=== PATIENT | female | born 1955 | race Caucasian/White ===

== ENCOUNTER 2018-10-29 10:51 | Observation (INO) ==
--- NOTE | 2018-10-29 07:46 | PROVIDER DOCUMENTATION ---
HPI-Abdominal Pain/GI Problem - General Chief Complaint: Flank Pain Stated Complaint: LOWER ABDOMINAL / BACK PAIN Time Seen by Provider: 10/29/18 07:36 Source: patient Allergies/Adverse Reactions: Patient Allergies Allergy/AdvReac Type Severity Reaction Status Date / Time codeine AdvReac NAUSEA/VOMI Verified 03/29/16 13:09 TING hydrocodone AdvReac NAUSEA/VOMI Verified 03/29/16 13:09 TING Home Medications: Home Medication List Medication Instructions Recorded Confirmed Last Taken Type Alprazolam [Xanax] 1 mg PO BID 03/29/16 05/08/18 03/29/16 09:00 History Cyclobenzaprine [Flexeril] 10 mg PO TID #20 tablet 03/29/16 05/08/18 Unknown Rx Hydrochlorothiazide 25 mg PO DAILY 03/29/16 05/08/18 03/29/16 09:00 History Lisinopril 40 mg PO DAILY 03/29/16 05/08/18 03/29/16 09:00 History Meloxicam [Mobic] 7.5 mg PO DAILY PRN PRN #15 tablet 03/29/16 05/08/18 Unknown Rx Tramadol [Ultram] 50 mg PO Q6H PRN PRN 03/29/16 05/08/18 03/29/16 09:00 History Albuterol 2.5MG/Ipratrop 0.5MG 3 ml INH Q4-6H PRN PRN #120 neb 05/09/18 Unknown Rx [Duoneb (A & A)] Azithromycin [Zithromax Z-Steven] 250 mg PO DIRECTED #1 pkg 05/09/18 Unknown Rx Methylprednisolone [Medrol Dosepak] 4 mg PO DIRECTED #1 pkg 05/09/18 Unknown Rx Nitrofurantoin Monohyd/M-Cryst 100 mg PO BID #14 cap 10/05/18 Unknown Rx [Macrobid 100 mg Capsule] Phenazopyridine HCl [Pyridium] 100 mg PO TID #6 tab 10/05/18 Unknown Rx Levofloxacin [Levaquin] 500 mg PO DAILY #14 tab 10/22/18 Unknown Rx Phenazopyridine HCl [Pyridium] 200 mg PO TID #20 tab 10/22/18 Unknown Rx Tramadol [Ultram] 50 mg PO Q6H PRN PRN #15 tab 10/22/18 Unknown Rx - History of Present Illness-ABD Abdominal Pain Onset Location: reports: RUQ, flank (PAIN IN BOTH FLANKS R > L, PAIN IN BOTH LOWER QUADARANTS, R > L. GETS BM ONLY WHEN TAKES LINZESS PER DR PARKS. DID NOT TRY ENEMAS INSTRUCTED LAST WEEK. DID NOT F/U WITH DR SUAREZ INSTRUCTED LAST WEEK.) Quality of Pain: reports: cramping, pressure Onset/Duration: reports: last week Timing: reports: still present Exposure to sick contacts?: No Modifying Factors: improves with: nothing Associated Symptoms: reports: constipation, nausea. denies: shortness of breath , vomiting Last BM: 24 hours ago Dark Stools Present?: reports: none noticed Similar Symptoms Previously?: Yes Recently seen or treated by another doctor?: Yes (HERE 1 WK AGO) Review of Systems - Adult - REVIEW OF SYSTEMS - ADULT Constitutional: reports: no symptoms reported, chills Eyes: reports: no symptoms reported Ears, Nose, Mouth & Throat: reports: no symptoms reported Cardiovascular: reports: no symptoms reported Respiratory: reports: no symptoms reported Gastrointestinal: reports: no symptoms reported Genitourinary: reports: no symptoms reported Musculoskeletal: reports: no symptoms reported Integumentary: reports: no symptoms reported Neurological: reports: no symptoms reported Psychiatric: reports: no symptoms reported Endocrine: reports: no symptoms reported Hematologic/Lymphatic: reports: no symptoms reported Allergic/Immunologic: reports: no symptoms reported All Other Systems: Reviewed and Negative Past History - Adult - PAST MEDICAL HISTORY-ADULT Review of Records: reports: Old Records Reviewed, Nursing Assessment Review, Medications Reviewed, Social history reviewed & non-contributory. Major Childhood Illnesses: reports: denies history Cardiovascular: reports: HTN Respiratory: reports: COPD Gastrointestinal: reports: denies history Obstetrical/Gynecological: reports: denies history Genitourinary: reports: denies history Musculoskeletal: reports: denies history Neurological: reports: denies history Psychiatric: reports: anxiety Endocrine/Immune: reports: denies history Other Conditions: reports: denies history - PRIOR SURGERIES/PROCEDURES Surgical/Procedure History: reports: orthopedic (extremity) - IMMUNIZATION STATUS Childhood Immunizations: See Nurse Assessment Flu Vaccine: See Nurse Assessment - FAMILY HISTORY Family History: reviewed, not pertinent Physical Exam-General - PHYSICAL EXAM-ADULT Initial Vital Signs Reviewed: Yes - CONSTITUTIONAL General Appearance: alert, mild distress - EYES Eyes: PERRL/EOMI, pink conjunctivae - HEAD, EARS, NOSE, MOUTH & THROAT HENMT: normocephalic/atraumatic, moist mucous membranes - NECK Neck: full range of motion - RESPIRATORY Respiratory: chest non-tender, lungs clear, normal breath sounds, no respiratory distress - CARDIOVASCULAR Cardiovascular: regular rate, rhythm, no gallop, no JVD, tachycardia - GASTROINTESTINAL (ABDOMEN) Abdominal Exam: normal bowel sounds, soft, tenderness ( RLQ- MILD) - MUSCULOSKELETAL Back Exam: no CVA tenderness Extremity: non-tender, normal gait - SKIN Integumentary: normal color, normal turgor, warm/dry - NEUROLOGIC Neurologic: assistant surveyor II-XII nml as tested, grossly normal, no motor/sensory deficits , abnormal cerebellar tests - PSYCHIATRIC Psych/Mental Status: normal mood/affect, normal thought content, normal thought process, oriented x 3 Progress - PLAN OF CARE/RESULTS Progress/Plan/Lab Results: Vital Signs - 8 hr 10/29/18 06:52 Temperature 97.7 F Pulse Rate 114 H Respiratory Rate 20 Blood Pressure 158/85 O2 Sat by Pulse Oximetry 94 L Orders Category Date Time Status Saline Loc NOW Care 10/29/18 07:[address] ABD/PELVIS W/PO AND IV CON [CT] Stat Exams 10/29/18 07:38 Ordered CBC WITH ELECTRONIC DIFF [HEME] Stat Lab 10/29/18 07:37 Uncollected COMPREHENSIVE METABOLIC PANEL [CHEM] Stat Lab 10/29/18 07:37 Uncollected LACTATE, PLASMA [CHEM] Stat Lab 10/29/18 07:37 Uncollected LIPASE [CHEM] Stat Lab 10/29/18 07:37 Uncollected MAGNESIUM [CHEM] Stat Lab 10/29/18 07:[address] W/POSS RFLX CULT [URINALYSIS] Stat Lab 10/29/18 07:37 Uncollected Acetaminophen [Tylenol] Med 10/29/18 07:39 Once 650 mg PO NOW ONE Ondansetron [Zofran] Med 10/29/18 07:39 Once 4 mg IV NOW ONE Promethazine [Phenergan] Med 10/29/18 07:39 Once 25 mg IM NOW ONE Result Diagrams: 10/29/18 08:09 10/29/18 08:09 - CONSULTS/PCP/HOSPITALIST Notification #1 *Consult/PCP/Hospitalist*: DR PARKS Time Discussed: 09:55 Consult Disposition: Admit (WILL CALL FOR ADMISSION AT [facility] FOR ACCESS GASTROENTEROLOGY) Departure - Departure Date of Disposition Decision: 10/29/18 Time of Disposition Decision: 10:06 DIAGNOSIS: Abdominal pain, UTI (urinary tract infection), Hyponatremia, Hypomagnesemia Disposition: ADMITTED INPATIENT 09 Certified Medical Emergency: Emergent Condition: Stable Referrals and Follow-Ups: Antolin Parks MD [Primary Care Provider] - - Critical Care Note This patient required my direct & personal management of CC.: No Attestation - Physician/ INEZ Attestation Patient care was provided by Advanced Practice Provider:: No The physician spent face to face time with patient:: Yes Advanced Practice Provider documentation review:: Supervising physician onsite and consulted in the evaluation and care of this patient. The physician did have a face to face encounter with the patient.
[2018-10-29 08:26] LABS: BASO# 0.03 X1000 (0.0-0.2); BASO% 0.3 % (0.0-0.8); EOS# 0.18 X1000 (0.0-0.7); EOS% 1.6 % (0.0-10.0); HEMATOCRIT 49.8 % (37.0-47.0); HEMOGLOBIN 17.8 g/dL (12.0-16.0); IMM GRAN# 0.04 X1000 (0.0-0.04); IMM GRAN% 0.3 % (0.0-0.5); LYMPH% 12.2 % (20.5-51.1); MCH 33.6 PG (27-31); MCHC 35.7 g/dL (33-37); MCV 94.1 FL (81-99); MONO# 1.08 X1000 (0.11-0.59); MONO% 9.4 % (1.7-9.3); MPV 11.4 FL (7.4-10.4); NEUT# 8.71 X1000 (1.4-6.5); NEUT% 76.2 % (42.2-75.2); PLT 178 X1000 (130-400); RBC 5.29 XMIL (4.2-5.4); RDW 13.9 % (11.5-14.5); WBC 11.44 X1000 (4.8-10.8)
[2018-10-29 08:30] LABS: BILIRUBIN URINE 2+ (NEGATIVE); BLOOD URINE TRACE (NEGATIVE); CLARITY CLEAR (CLEAR); COLOR AMBER; GLUCOSE URINE NEGATIVE (NEGATIVE); KETONE URINE 2+(Moderate) mg/dL (NEGATIVE); LEUKOCYTES URINE 1+ (NEGATIVE); NITRITE URINE POSITIVE (NEGATIVE); PH URINE 6.5; PROTEIN URINE 2+(100 mg/dL) mg/dL (NEGATIVE); SP GRAVITY URINE 1.015; UROBILINOGEN URINE 8 mg/dL
[2018-10-29 08:39] LABS: URINE BACTERIA 2+ /HFP; URINE EPITHELIAL CELLS >10 /HPF (<10); URINE RBC <10 /HPF (<10); URINE SOURCE CLEAN CATCH
[2018-10-29 08:44] LABS: AGAP 15; ALBUMIN 3.9 g/dL (3.5-5.0); ALKALINE PHOSPHATASE 129 U/L (32-104); BUN 9 mg/dL (8-22); CALCIUM 9.9 mg/dL (8.8-10.2); CHLORIDE 90 mmol/L (98-107); COSMO 265; CREATININE 0.6 mg/dL (0.5-0.9); ESTIMATED GFR > 60; GLUCOSE 125 mg/dL (70-104); GOT 14 U/L (10-30); GPT 6 U/L (10-36); LIPASE 19 U/L (13-60); MAGNESIUM 1.4 mg/dL (1.5-2.7); POTASSIUM 3.9 mmol/L (3.5-5.1); SODIUM 132 mmol/L (136-145); TCO2 27 mmol/L (25-35); TOTAL PROTEIN 7.1 g/dL (6.3-8.3)
--- NOTE | 2018-10-29 10:02 | Diag Imaging Result Doc PS360 ---
EXAM: CT ABD/PELVIS W/PO AND IV CON HISTORY: R FLANK AND RLQ PAINS TECHNIQUE: CT abdomen and pelvis with intravenous contrast COMPARISON: None. FINDINGS: There are several small stones within the gallbladder. The gallbladder is contracted. No adjacent inflammation. Tiny hepatic cyst superiorly. Questionable tiny cyst, volume averaging or hemangioma inferiorly. Normal spleen. There are multiple cystic areas in the body of the pancreas. No pancreatic calcifications. No significant peripancreatic inflammation. Normal adrenal glands. There are small renal cysts. No hydronephrosis. No aortic aneurysm. Moderate atherosclerosis. The left renal vein goes behind the aorta. This is a normal variant. There is thickening to the omentum with scattered small peritoneal nodules. No bowel obstruction. There are small fluid filled areas in the pelvis with pelvic inflammation. Uterus is not enlarged. The urinary bladder is moderately distended and is normal. IMPRESSION: 1.Pancreatic mass versus pseudocysts 2.Multiple peritoneal implants with inflammation in the pelvis and small cystic areas which may indicate a female malignancy. 3.Cholelithiasis This exam was performed using automated exposure control, adjustment of mA or kV according to patient size, and/or use of iterative reconstruction technique. Electronically signed by Christopher Felix 10/29/2018 10:00 AM
[~2018-10-29 10:51] MED LIST: MAGNESIUM SULFATE 2 GM/S.W.I. 2 GM/50 ML IVPB IV ONE; NS 1,000 ML IV ONE; NS 100 ML ONE; PHENERGAN IM ONE; TYLENOL PO ONE; ZOFRAN IV ONE; ZOSYN 4.5 GM in NS 100 ML IV ONE
--- NOTE | 2018-10-29 11:32 | HISTORY AND PHYSICAL ---
PRIMARY CARE PHYSICIAN: Dr. Antolin Parks. CHIEF COMPLAINT: Right upper quadrant and flank pain that has progressively worsened over the past month. HISTORY OF PRESENTING ILLNESS: This is a 63-year-old female who presents to [facility] ER with complaints of right upper quadrant and flank pain that is worse on the right. States she has had some issues with constipation and takes Linzess and had a bowel movement yesterday, but she did not follow up with her primary care physician as instructed last week. She began having worsening cramping, pressure in her abdomen. Her workup showed white blood cell count was 11.44, sodium was 132, magnesium was 1.4. Her urinalysis showed positive nitrites, 1+ white blood cells, 2+ bacteria but also had greater than 10 epithelial cells. We did do a CT of the abdomen and pelvis that showed an impression of a pancreatic mass versus pseudocyst, multiple peritoneal implants with inflammation in the pelvis and small cystic areas which may indicate a female malignancy and a cholelithiasis. So, she will be admitted to the [facility] for further evaluation and treatment. PAST MEDICAL HISTORY: Chronic obstructive pulmonary disease , hypertension, anxiety, and lumbar degenerative disk disease. PAST SURGICAL HISTORY: A neck fusion and right hand surgery. FAMILY HISTORY: Reviewed and noncontributory. SOCIAL HISTORY: Currently lives with family. Smokes a pack of cigarettes a day and denied any alcohol or illicit drug use. ALLERGIES: Codeine and hydrocodone. HOME MEDICATIONS: A current list will need to be obtained, reviewed, and reconciled. Placed order for nursing to update and confirm home medications. LABORATORY DATA: A white blood cell count of 11.44, hemoglobin of 17.8, hematocrit 49.8, platelets 178,000. Sodium 132, potassium 3.9, chloride 90, CO2 27, BUN of 9, creatinine 0.6, glucose 125, magnesium of 1.4. Plasma lactate of 1. Lipase 19. Urinalysis with positive nitrites, 1+ white blood cells, 2+ bacteria, but it also had greater than [address] of the abdomen and pelvis showed a pancreatic mass versus pseudocyst cyst, multiple peritoneal implants with inflammation in the pelvis and small cystic areas which may indicate a female malignancy and cholelithiasis. REVIEW OF SYSTEMS: She denied any fever, chills, blurred vision, dizziness, chest pain, coughing, shortness of breath. She was positive for right and left upper quadrant abdominal pain, right and left flank pain with right greater than left, constipation, some mild nausea. Denied any burning or hurting with urination. PHYSICAL EXAMINATION: VITAL SIGNS: On arrival showed a temperature of 97.7 degrees, pulse 114, respirations 20, blood pressure 158/85, saturating 94% on room air. GENERAL: This is a 63-year-old female who is lying in the bed and answers questions appropriately. HEENT: Normocephalic, atraumatic. Normal ENT inspection. Oropharynx and nares are clear. Eyes: Pupils are equal, round, reactive to light and accommodation. Extraocular movements are intact. NECK: Normal inspection with normal range of motion. LUNGS: Clear to auscultation bilaterally with equal lung expansion and chest wall movement. HEART: Regular rate and rhythm. No murmurs, rubs, or gallops. ABDOMEN: There is some tenderness to the right and left upper quadrants to palpation. Bowel sounds are present x4 quadrants. MUSCULOSKELETAL: She has 5/5 strength x4 extremities. NEUROLOGICAL: The cranial nerves 2 through 12 appear grossly intact. ASSESSMENT: 1. Cholelithiasis. 2. Urinary tract infection. 3. Pancreatic mass versus pseudocyst. 4. Hypomagnesemia. 5. Possible female malignancy. PLAN: She will be transferred to [facility], placed on telemetry, clear liquid diet and we will consult General Surgery. We will do an ultrasound, transvaginal. Place her on Rocephin 1 gram IV q.24 h. Zofran 4 mg IV q.4 hours p.r.n., normal saline at 75 mL an hour, Tylenol 650 p.o. q.6 hours p.r.n. We will recheck a CBC, BMP in the a.m. along with a magnesium level. Nursing to update and confirm home medications and then will be restarted as appropriate. Further orders after being seen by attending and the protection consultant. Dictated by VISHAL Vazquez for Bradford Hickey MD cc: VISHAL Vazquez MD Gregory S. Cheatham, MD Pt examined please see attched note. APENOT MTDD
[2018-10-29] MEDS ORDERED: TYLENOL PO PRN (13:55)
--- NOTE | 2018-10-29 14:58 | HISTORY AND PHYSICAL ---
ADDENDUM: The patient came in with abdominal pain, nausea, vomiting. Workup revealed possible gallstones. She has COPD. She has been not feeling well for last month. She had some fertilization issues. She has seen Dr. Arteaga in the past. Apparently had a salpingostomy and she had dye put in through her fallopian tubes. She had a viable but after that, then she had an ectopic and then she also had an abnormal uterus. The patient is otherwise stable. Workup though revealed a pancreatic possible mass versus pseudocyst. She also has gallstones. She also has possible UTI. The patient is going to be admitted for multiple issues. She denies any abnormalities on her SENIOR BENEFITS SPECIALIST exam. She has seen Dr. Arteaga and now she sees another physician, Dr. Hickey. She has never had abnormal Pap smears before, although she did have abnormalities as detected. Her physical exam is stable. No major issues there. Plan is to transfer to [facility] for evaluation by General Surgery because of the current scan shows concern over possible pancreatic cancer versus an unknown primary. She has peritoneal studding which is concerning over possible implants but unknown primary. I think we need to scan her lungs because she is a heavy smoker, 40 pack year history of smoking, to rule out chest mass and then do further studies on her gallbladder to see if she is symptomatic. She definitely has right upper quadrant abdominal pain, nausea. She also has I think evidence of UTI and that was her main complaint was dysuria and bladder fullness, those kinds of issues. She denies any SENIOR BENEFITS SPECIALIST issues. No vaginal discharge. No bleeding. But, we will proceed with pelvic ultrasound and follow. Rest of the details per dictated H/P. DISCHARGE CONDITION: Stable. Transfer her to [facility] for further management. We will consult PRINCIPAL LIBRARIAN and General Surgery. cc: Bradford Hickey MD [facility]
--- NOTE | 2018-10-29 15:30 | Diag Imaging Result Doc PS360 ---
EXAM: US PELVIC NON-OB COMPLETE HISTORY: eval for education supervisor malignancy TECHNIQUE: Transvaginal Pelvic ultrasound COMPARISON: None. FINDINGS: The uterus measures 5.4 x 4.2 x 3.5 cm. The endometrium is not thickened. The two dela cruz combined measure 3 mm. No uterine mass. Normal right ovary. The left ovary is not identified. There is a small amount of complex fluid in the pelvis. Bowel loops with peristalsis are present. IMPRESSION: No distinct adnexal mass although there is a small amount of complex fluid in the pelvis. Electronically signed by Christopher Felix 10/29/2018 3:27 PM
--- NOTE | 2018-10-29 15:31 | Diag Imaging Result Doc PS360 ---
EXAM: US ABDOMEN-COMPLETE INDICATION: abdominal pain COMPARISON: None. FINDINGS: There are a few small stones in the gallbladder lumen. There is no evidence of gallbladder wall thickening or pericholecystic fluid. The common bile duct is normal in diameter. Sonographic Castellanos's sign was reported to be negative. The liver is grossly unremarkable. Portal venous flow is hepatopetal. The pancreas is obscured by bowel gas. The mid and distal aorta is obscured. The proximal aorta and IVC are unremarkable. The spleen is unremarkable. The kidneys are grossly unremarkable. IMPRESSION: Cholelithiasis. Essentially unremarkable abdominal ultrasound, otherwise. Electronically signed by Duke Perez 10/29/2018 3:29 PM
[2018-10-29] MEDS: ROCEPHIN 1 GM in NS 50 ML IV SCH (16:45)
[2018-10-29] MEDS: NS 1,000 ML IV SCH (16:45)
[2018-10-29] MEDS: MORPHINE IV PRN ×2 (16:45→21:05)
[2018-10-29] MEDS: ZOFRAN IV PRN ×2 (16:46→21:05)
[2018-10-30] MEDS: MORPHINE IV PRN ×5 (02:33→20:00)
[2018-10-30] MEDS: ZOFRAN IV PRN ×5 (02:33→20:00)
--- NOTE | 2018-10-30 03:39 | GENERAL SURGERY CONSULTATION ---
DATE: 10/29/2018 REQUESTING PHYSICIAN: Hospitalist service. REASON FOR CONSULTATION: Consult is concerning possible pancreatic mass and cholelithiasis. HISTORY OF PRESENT ILLNESS: A 63-year-old female who presented to the [facility] initially with complaints that she told to the hospitalist service with right upper quadrant and flank pain. She now reports more pain in the bilateral lower quadrants to me. She was seen initially, evaluated, and had a CT scan that showed a potential for pancreatic mass, peritoneal implants, and cholelithiasis. Given this, she was transferred over to [facility] for further evaluation. At this point, she denies any kind of right upper quadrant pain, but says bilateral lower quadrant pain. I was asked to weigh an opinion. PAST MEDICAL HISTORY: COPD, hypertension, anxiety, lumbar degenerative disk disease. PAST SURGICAL HISTORY: Neck fusion and right hand surgery. FAMILY HISTORY: Reviewed. SOCIAL HISTORY: Current smoker. ALLERGIES: Codeine and hydrocodone. HOME MEDICATIONS: In MAR, reviewed. REVIEW OF SYSTEMS: A full 10-point review of systems obtained, negative, except as specified in HPI. PHYSICAL EXAMINATION: Vital Signs: The patient is currently afebrile. Her vital signs are stable. General: No acute distress. Alert, interactive, female. Looks stated age. HEENT: Normocephalic, atraumatic. Pupils equal, round, reactive to light. Mucous membranes moist. Oropharynx benign. Neck: Supple. Trachea midline. Cardiovascular: Regular rate and rhythm. Lungs: Grossly clear. Abdomen: Soft, nontender, nondistended. Some minimal lower quadrant discomfort. Extremities: Moves all extremities. Neurologic: Grossly intact. Skin: No signs of jaundice. Vascular: All extremities perfused. LABORATORY: White blood cell count 11, hematocrit 49, platelet count 178,000. Bilirubin is normal. AST is normal. Alkaline phosphatase 129. CEA is slightly elevated at 72.5. CT scan independently reviewed, and radiology report reviewed, and noted above. ASSESSMENT AND PLAN: A 63-year-old with possible pancreatic mass and cholelithiasis. 1. Pancreatic mass. In the context of the patient not hurting, I would like to follow up with her labs. They have been sent off with the CA-19-9, CA-125, and the CEA. There is a high chance this could be a malignancy. She may even need endoscopic ultrasound if labs are not conclusive. May need to consider diagnostic laparoscopy with implant biopsy. At this point, she is not complaining of a lot of symptoms in her right upper quadrant, so I would hold off on any kind of cholecystectomy, pending the evaluation from the pancreatic mass. 2. Cholelithiasis. Please see above. I appreciate the consult. cc: Cory Cavanaugh MD
[2018-10-30] MEDS: NS 1,000 ML IV SCH ×3 (06:41→20:13)
[2018-10-30 08:15] LABS: BASO# 0.03 X1000 (0.0-0.2); BASO% 0.4 % (0.0-0.8); EOS# 0.25 X1000 (0.0-0.7); HEMATOCRIT 46.9 % (37.0-47.0); HEMOGLOBIN 16.1 g/dL (12.0-16.0); IMM GRAN# 0.03 X1000 (0.0-0.04); IMM GRAN% 0.4 % (0.0-0.5); LYMPH# 1.43 X1000 (1.2-3.4); LYMPH% 17.4 % (20.5-51.1); MCH 33.5 PG (27-31); MCHC 34.3 g/dL (33-37); MCV 97.5 FL (81-99); MONO# 0.86 X1000 (0.11-0.59); MONO% 10.5 % (1.7-9.3); MPV 11.7 FL (7.4-10.4); NEUT# 5.62 X1000 (1.4-6.5); NEUT% 68.3 % (42.2-75.2); PLT 164 X1000 (130-400); RBC 4.81 XMIL (4.2-5.4); RDW 13.9 % (11.5-14.5); WBC 8.22 X1000 (4.8-10.8)
[2018-10-30 08:30] LABS: AGAP 13; ALB/GLOB RATIO 1.1; ALBUMIN 3.1 g/dL (3.5-5.0); ALKALINE PHOSPHATASE 96 U/L (32-104); BUN 6 mg/dL (8-22); CALCIUM 8.7 mg/dL (8.8-10.2); CHLORIDE 102 mmol/L (98-107); COSMO 273; CREATININE 0.5 mg/dL (0.5-0.9); ESTIMATED GFR > 60; GLUCOSE 90 mg/dL (70-104); GOT 11 U/L (10-30); GPT 6 U/L (10-36); POTASSIUM 3.9 mmol/L (3.5-5.1); SODIUM 138 mmol/L (136-145); TCO2 23 mmol/L (25-35); TOTAL BILIRUBIN 0.46 mg/dL (0.20-1.00); TOTAL PROTEIN 5.9 g/dL (6.3-8.3)
--- NOTE | 2018-10-30 09:17 | Diag Imaging Result Doc PS360 ---
EXAM: CT THORAX W/CONTRAST INDICATION: copd, weight loss, possible staging TECHNIQUE: This exam was performed using automated exposure control, adjustment of mA or kV according to patient size, and/or use of iterative reconstruction technique. COMPARISON: No prior dedicated chest CT is available for comparison. FINDINGS: There are calcified mediastinal and right hilar lymph nodes indicating prior granulomatous disease. There are a few tiny noncalcified nodules scattered in the right lung. Almost all are 4 mm or less. The largest nodule measured about 5 mm in the right lower lobe. These certainly may represent noncalcified granulomata. Given the findings of malignancy in the abdomen on a recent abdomen and pelvis CT, continued surveillance is recommended, however. There is minimal emphysematous change at the lung apices. There is mild subsegmental atelectasis at the lung bases. There is no pleural fluid collection and no pneumothorax. The heart is not enlarged. There is no evidence of local bony metastatic disease to the chest. Limited views of the upper abdomen reveals trace ascites tracking around the liver and spleen. However, there is more fluid than yesterday's abdomen and pelvis CT. Otherwise, limited views of the upper abdomen are stable. IMPRESSION: 1.A few tiny subcentimeter nodules involving the right lung that probably represent noncalcified granulomata. However, given the recent findings in the abdomen and pelvis, continued surveillance is recommended. 2.Minimal emphysematous changes at the lung apices. 3.Trace ascites tracking around the liver and spleen that has increased slightly during the interval. Electronically signed by Duke Perez 10/30/2018 9:15 AM
--- NOTE | 2018-10-30 10:53 | GENERAL SURGERY PROGRESS NOTE ---
DATE: 10/30/2018 SUBJECTIVE: Patient doing about the same. Still having some bilateral lower quadrant pain. OBJECTIVE: Vital Signs: Patient is currently afebrile, her vital signs stable. General exam: No acute distress. Cardiovascular: Regular rate and rhythm. HEENT: Normocephalic, atraumatic. Pupils equal, round, reactive to light. Mucous membranes moist. Oropharynx benign. Neck: Supple. Trachea midline. Lungs: Grossly clear. Abdomen: Soft. Some mild discomfort bilateral lower quadrants. No peritoneal signs. Extremities: Moves all extremities. Neurologic: Grossly intact. Skin: No signs of jaundice. Vascular: All extremities perfused. LABORATORY: Of note, the only other lab that came back is a CA-125 of 434. ASSESSMENT/PLAN: A 63-year-old female with possible pancreatic mass, cholelithiasis and peritoneal implants. 1. Pancreatic mass: At this time labs for the CA-19/9 are still pending. The CA-125 is elevated and there is some concern that she might have a gynecologic malignancy with peritoneal implants. I would like to see the results of the CA-19/9, but the patient may need diagnostic laparoscopy with peritoneal implant biopsy versus consideration of gynecologic/oncology consultation for evaluation. 2. Cholelithiasis. At this time, we will hold off on any intervention. I am unsure if she is symptomatic from it. 3. Peritoneal implants. Please see above. cc: Cory Cavanaugh MD
[2018-10-30] MEDS: ROCEPHIN 1 GM in NS 50 ML IV SCH (14:36)
--- NOTE | 2018-10-30 17:01 | PROGRESS NOTE ---
DATE: 10/30/2018 SUBJECTIVE: She is a patient of Dr. Antolin Parks. She had right upper quadrant flank pain that progressively worsened over the last month. A 63-year-old presented to [facility] complaining of right upper quadrant flank pain, worse on the right. She had some issues with constipation, takes Linzess, and had a bowel movement the day before admission, but she did not follow up with her primary care physician as instructed last week. She began having worsening cramping and pressure in her abdomen. Workup showed white blood cell count 11,440. Sodium 132, magnesium 1.4. Urinalysis showed positive nitrates 1+, white blood cells, 2+ bacteria, also greater than [address] of the abdomen and pelvis that showed impression of pancreatic masses versus pseudocyst, multiple peritoneal implants and inflammation in the pelvis, small cystic areas which indicate possible female malignancy or cholelithiasis and choledocholithiasis. So, admitted to [facility]. She apparently is undergoing testing now. She feels a little better. She still has the lower right quadrant pain. Dr. Cavanaugh is following. OBJECTIVE: Vital Signs: Temperature is 97.5 degrees, pulse 84, respirations 18, blood pressure 138/80. HEENT: Pupils are equal and round. Lungs: Clear in all lung keyes. Cardiovascular: Regular rhythm and rate without murmur or S3. Abdomen: Soft. There is tenderness in the right lower quadrant, but none in the epigastric area. DIAGNOSTIC DATA: CT of her thorax reveals a few tiny subcentimeter nodules involving the right lung that probably represent noncalcified granulomata. However, recent finding in the abdomen and pelvis continued surveillance is recommended. Minimal emphysematous changes in the lung apices. Trace ascites tract around the liver and spleen and has increased since CT comparison, not sure when that was. She had a CT of the abdomen and pelvis on 10/29/2018. Pancreatic mass versus pseudocyst, multiple peritoneal implants with inflammation in the pelvis, small cystic areas that may indicate female malignancy and cholelithiasis. REVIEW OF HER LABORATORY DATA: Lab from yesterday, white count 8220, hematocrit is 46, platelet count 164,000. Sodium 138, potassium 3.9, chloride 102, BUN 6, creatinine 0.5. Her transaminases were unremarkable. She did have a pelvic ultrasound on 10/29/2018. No distinct adnexal mass, although there is small amount of complex fluid in the pelvis. ASSESSMENT AND PLAN: 1. Pancreatic mass. At this time we ordered a CA-19-9 still pending, and CA-125 is elevated and there is some concern she might have a gynecologic malignancy with peritoneal implants. Result of CA-19-9, the patient may need diagnostic laparoscopy with peritoneal implant biopsy. 2. Cholelithiasis. 3. Peritoneal implants. So continue workup. Review of her orders. She is on ceftriaxone 1 g q.24 h. and they did supplement some magnesium and getting morphine for pain. Normal saline at 75 mL an hour. cc: Guero Parks MD
[2018-10-31] MEDS: MORPHINE IV PRN ×6 (00:25→21:29)
[2018-10-31] MEDS: ZOFRAN IV PRN ×6 (00:25→21:29)
--- NOTE | 2018-10-31 06:43 | GENERAL SURGERY PROGRESS NOTE ---
DATE: 10/31/2018 SUBJECTIVE: Patient doing about the same. OBJECTIVE: Vital Signs: Patient is currently afebrile. Her vital signs are stable. General: No acute distress. HEENT: Normocephalic, atraumatic. Pupils equal, round, reactive to light. Mucous membranes moist. Oropharynx benign. Neck: Supple, trachea midline. Cardiovascular: Regular rate and rhythm. Lungs: Grossly clear. Abdomen: Soft. Some bilateral lower quadrant tenderness but no peritoneal signs. Extremities: Moves all extremities. Neurologic: Grossly intact. Skin: No signs of jaundice. Vascular: All extremities perfused. LABORATORY: CA-19-9 is 156,187. CA-125 is 434, CEA 72.5. ASSESSMENT AND PLAN: A 63-year-old with abdominal mass. 1. Abdominal mass. At this time she has elevated CEA, elevated CA 19-9, and elevated CA-125. At this point, we will get oncology involved, get their opinion. If Oncology wants tissue diagnosis, I can potentially take her to the operating room and do a diagnostic laparoscopy or Monday. It would be purely to get a diagnosis, but again, there is a high degree of suspicion this might be pancreatic in origin or even BALLOON ARTIST in origin given the elevated tumor markers. At this point, continue current treatment. We will follow up with oncology recommendation. cc: Cory Cavanaugh MD
[2018-10-31] MEDS ORDERED: NS 50 ML ONE (09:14)
[2018-10-31] MEDS: NS 1,000 ML IV SCH ×2 (13:06→22:46)
[2018-10-31] MEDS: ROCEPHIN 1 GM in NS 50 ML IV SCH (14:14)
--- NOTE | 2018-10-31 16:44 | PROGRESS NOTE ---
DATE: 10/31/2018 SUBJECTIVE: Ms. Koroma says she is still hurting, still with nausea. OBJECTIVE: Vital Signs: Temperature 97.9, pulse 84, respirations 20, blood pressure 154/61. Eyes: Pupils are equal and round. Lungs: Are clear in all lung keyes. Cardiovascular: Regular rhythm and rate without murmur or S3. Abdomen: Soft. Skin: Warm and dry. ASSESSMENT AND PLAN: 1. Abdominal mass. She has an elevated CEA, elevated CA-19-9, elevated CA-125. Oncology is going to weigh in and they would like a tissue diagnosis so plan to do laparoscopic procedure or Monday or Dr. Cavanaugh is planning on doing a laparoscopic procedure for and Monday. Not sure if this is pancreatic or BINDER LOCKSTITCH origin and the patient understands. Understands the course of treatment or plan of the hospital course at this point. 2. She does have cholelithiasis. 3. Peritoneal implants appreciated. Getting normal saline at 75 mL an hour. She is on ceftriaxone 1 g q.24 hours. cc: Guero Parks MD
--- NOTE | 2018-10-31 17:19 | HEMO/ONC CONSULTATION ---
DATE: 10/31/2018 REQUESTING PHYSICIAN: Cory Cavanaugh MD REASON FOR CONSULTATION: Pancreatic mass. HISTORY OF PRESENT ILLNESS: Ms. Koroma is a 63-year-old female, who initially presented to the emergency department complaining of right upper quadrant pain and flank pain that was worsening. She is also having some issues with constipation. During her workup , which included a CT of the abdomen and pelvis, it shows her to have a pancreatic mass versus pseudocyst with multiple peritoneal implants with inflammation in the pelvis and small cystic areas which may indicate a female malignancy, and she also was found to have cholelithiasis. She has now been admitted for further evaluation and treatment. PAST MEDICAL HISTORY: 1. COPD. 2. Hypertension. 3. Anxiety. 4. Degenerative disk disease. PAST SURGICAL HISTORY: 1. Neck fusion. 2. Right hand surgery. SOCIAL HISTORY: Patient currently lives with some family members. She smokes a pack of cigarettes per day. She denies any alcohol or illicit drug use. She has a daughter and also a mother who are in her life. FAMILY HISTORY: Again, her mother is still alive. Her father is . No mention of cancer within her family. REVIEW OF SYSTEMS: As per the HPI. All else is negative or noncontributory. A 12 point review of systems completed. PHYSICAL EXAMINATION: Vital Signs: Temperature 97.8 degrees, heart rate 85, respirations 20, blood pressure 169/77, O2 saturation 97% on room air. General: This is a female, lying in hospital bed. She appears older than her stated age. There is no one at her bedside. Head: Normocephalic, atraumatic. Eyes: Pupils equal, round, and reactive. Ears , nose, throat, neck, mouth: Mucosa appears to be normal. Gross auditory acuity is intact. Cardiovascular: S1, S2 heard. No murmurs, gallops, or rubs appreciated. Respiratory: Chest clear with normal respiratory effort. Gastrointestinal: Abdomen is slightly distended. She has some diffuse tenderness with her worst tenderness actually in her right lower quadrant. She also has some epigastric tenderness as well. Positive bowel sounds noted. Musculoskeletal: No bony abnormalities. Extremities: No edema. Neurologic: Patient is alert and oriented. DIAGNOSTIC STUDIES: CT scan as per the HPI. White blood cells 8.22, hemoglobin 16.1, hematocrit 46.9, platelet count 164, 000. Sodium 138, potassium 3.9, chloride 102, CO2 of 23, BUN 6, creatinine 0.5, glucose 90. CA19-9 is 156,187. CA-[address] of chest shows tiny subcentimeter noncalcified granulomatous disease. ASSESSMENT AND PLAN: 1. Pancreatic mass with elevated CA19-9. Suspect the patient likely has a pancreatic carcinoma. However, we will need a tissue diagnosis. Per the patient's report, Dr. Cavanaugh is planning to do surgery either tomorrow or Monday. We will follow up on pathology once it comes back. Further treatment discussion once we have a definitive diagnosis. 2. Cholelithiasis. Again she has been evaluated by Dr. Cavanaugh. Management per him. 3. Urinary tract infection. Patient will continue with IV antibiotics per the primary team. 4. Abdominal pain. Seems to be well managed currently with morphine IV as needed. Continue. 5. Nausea and vomiting. Well managed with IV antiemetics. Continue as prescribed. We like to thank you for consulting us on Ms. Koroma. We will continue to follow along and adjust our treatment plan per her hospital course. Dictated by SHREE Baeza for Krissy Carrero MD cc: Krissy Carrero MD I have seen and examined the patient and the above note reflects my history, physical and assessment and plan. Krissy LUJAN
[2018-10-31] MEDS: NICODERM PATCH TD SCH (21:29)
[2018-11-01] MEDS: MORPHINE IV PRN ×4 (01:34→19:53)
[2018-11-01] MEDS: ZOFRAN IV PRN ×3 (01:34→19:53)
[2018-11-01] MEDS: NS 1,000 ML IV SCH ×3 (04:38→15:52)
--- NOTE | 2018-11-01 05:50 | GENERAL SURGERY PROGRESS NOTE ---
DATE: 11/01/2018 SUBJECTIVE: The patient is doing about the same. Discussed her case with Dr. Krissy Carrero. They do want a tissue biopsy. We will try to do that today. OBJECTIVE: Vital Signs: The patient is currently afebrile, her vital signs are stable. General: No acute distress. HEENT: Normocephalic, atraumatic. Pupils equal, round, and reactive to light. Mucous membranes moist. Oropharynx benign. Neck: Supple. Trachea midline. Cardiovascular: Regular rate and rhythm. Lungs: Grossly clear. Abdomen: Soft. Some mild discomfort to bilateral lower quadrants but no peritoneal signs. Extremities: Moves all extremities. Neurologic: Grossly intact. Skin: No signs of jaundice. Vascular: All extremities perfused. LABORATORY: None this morning as of yet. ASSESSMENT AND PLAN: A 63-year-old with abdominal mass, likely pancreatic cancer, with possible peritoneal implants. Abdominal mass. At this time, we will plan on diagnostic laparoscopy to try to get a biopsy. The risks, benefits, and alternatives were discussed with the patient. Risks including, but not limited to bleeding, infection, risk of anesthesia, and risk of injuring other organs discussed. We will try to do that today if not tomorrow. We will make her NPO and try to get her posted for today. cc: Cory Cavanaugh MD
[2018-11-01] MEDS: BENADRYL IV PRN ×3 (06:00→19:53)
[2018-11-01] MEDS: NICODERM PATCH TD SCH (08:43)
[2018-11-01] MEDS ORDERED: ROBINUL ONE ×2 (12:17→13:03)
[2018-11-01] MEDS ORDERED: XYLOCAINE-MPF 2% ONE (12:17)
[2018-11-01] MEDS ORDERED: QUELICIN (DOSE) ONE (12:17)
[2018-11-01] MEDS ORDERED: DIPRIVAN 1% ONE (12:18)
[2018-11-01] MEDS ORDERED: LR 1,000 ML ONE (12:44)
[2018-11-01] MEDS ORDERED: SENSORCAINE-MPF 0.5%/EPI 1:200,000 ONE (12:44)
[2018-11-01] MEDS ORDERED: NEOSTIGMINE ONE (13:03)
[2018-11-01] MEDS ORDERED: ZOFRAN ONE (13:03)
[2018-11-01] MEDS ORDERED: ZEMURON ONE (13:03)
[2018-11-01] MEDS ORDERED: DECADRON ONE (13:03)
[2018-11-01] MEDS ORDERED: FENTANYL ONE (13:04)
[2018-11-01] MEDS: ROCEPHIN 1 GM in NS 50 ML IV SCH (15:52)
--- NOTE | 2018-11-01 15:59 | OPERATIVE NOTE ---
PROCEDURE DATE: 11/01/2018 PREOPERATIVE DIAGNOSIS: Abdominal mass and elevated tumor markers. POSTOPERATIVE DIAGNOSIS: Carcinomatosis with peritoneal implants. PROCEDURES: 1. Diagnostic laparoscopy. 2. Biopsy of peritoneal implants. 3. Laparoscopic drainage of ascites for cytology. SURGEON: Cory Cavanaugh MD. FUNCTIONAL ANALYST: None. ANESTHESIA: General endotracheal. OPERATIVE FINDINGS: Ascites and implants noted throughout the abdomen. COMPLICATIONS: None at the time of this dictation. ESTIMATED BLOOD LOSS: 5 mL. SPECIMEN REMOVED: Fluid for cytology and implants for permanent. 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 Her tumor markers including her CA-19/9 were significantly elevated. It was felt that she needed a biopsy. The risks, benefits, and alternatives were discussed. All questions answered. DESCRIPTION OF PROCEDURE: After informed consent was obtained, patient brought to the operative theater, transferred to the operative table, placed in supine position. General endotracheal anesthesia was then performed without complication. A formal time-out was then performed confirming patient, date, procedure. All were in agreement. At that time, the patient had an infraumbilical incision made through which using Optiview technique, we inserted a 5 mm trocar, connected insufflation and pneumoperitoneum was achieved. We then placed an additional 5 mm trocar lateral to this on the right side. We saw multiple peritoneal implants across the entirety of the abdomen. There were some that were easily accessible above the liver, which we identified as probably the safest ones to get. There was also a significant amount of ascites. We initially placed a suction in, put a Lukens trap on it and took some fluid for cytology. We then also did a biopsy and grasped multiple aspects of these peritoneal implants. It looked like under gross that we had a significant amount of tissue. We then removed all trocars, disconnected insufflation. Pneumoperitoneum was released. We then closed all skin incisions with 4-0 Monocryl. The patient tolerated the procedure well, was transferred back to recovery room in stable condition. cc: Cory Cavanaugh MD
--- NOTE | 2018-11-01 18:56 | PROGRESS NOTE ---
DATE: 11/01/2018 SUBJECTIVE: Ms. Koroma feels about the same, still with nausea. No abdominal pain. The plan is to do a laparoscopic evaluation, get some biopsy. OBJECTIVE: Temperature 97.8 degrees, pulse 90, respirations 18, blood pressure 159/80. Pupils are equal and round. Lungs are clear in all lung keyes. Cardiovascular exam regular rhythm and rate, without murmur or S3. Abdomen is soft. Skin is warm and dry. Urine output 1000 mL. ASSESSMENT AND PLAN: 1. Abdominal mass, elevated CEA, elevated CA19-9, elevated CA-125. Plan is get a tissue diagnosis. 2. Cholelithiasis. 3. Peritoneal implants. cc: Guero Parks MD
[2018-11-02] MEDS: BENADRYL IV PRN ×5 (00:06→20:32)
[2018-11-02] MEDS: MORPHINE IV PRN ×5 (00:06→20:32)
[2018-11-02] MEDS: ZOFRAN IV PRN ×5 (00:07→20:32)
[2018-11-02] MEDS: NS 1,000 ML IV SCH ×2 (03:45→15:02)
--- NOTE | 2018-11-02 06:12 | GENERAL SURGERY PROGRESS NOTE ---
DATE: 11/02/2018 SUBJECTIVE: The patient doing okay after surgery. She has been hemodynamically stable. She has a little bit of abdominal discomfort, but this is expected. During the surgery, saw multiple peritoneal implants, which we took territory sales representative biopsies of. She also had ascites which we took samples up for cytology. ASSESSMENT AND PLAN: From a surgical point of view, she is doing well. This likely represents carcinomatosis and, given the lab findings, most likely for a pancreatic origin. From a surgical point of view, once she is deemed okay to be discharged from the hospital we can probably discharge her. I can see her back in the office and discuss port placement with her as an outpatient. We will follow up with Oncology recommendation. cc: Cory Cavanaugh MD
[2018-11-02] MEDS: NICODERM PATCH TD SCH (10:05)
--- NOTE | 2018-11-02 13:34 | PROGRESS NOTE ---
DATE: 11/02/2018 SUBJECTIVE: Ms. Koroma still feels about the same and she is obviously concerned about the results of her test. OBJECTIVE: Vital signs: Temperature 97.6 degrees, pulse 96, respirations 18, blood pressure 162/81. HEENT: Pupils are equal and round. Lungs: Clear in all lung keyes. Cardiovascular: Regular rate without murmur or S3. Abdomen: Soft. Skin: Warm and dry. Urine output 2800 mL. ASSESSMENT AND PLAN: It appears that she has carcinomatosis, most likely pancreatic origin. I was going to try advancing her diet and see how we do. See if we get any pathology back. She has an elevated CEA, CA-19-9, CA-125, and she has some underlying cholelithiasis as well. Dr. Carrero has evaluated. So we will advance her diet and see how we do. She has a nicotine patch on board. We have been giving her some ceftriaxone 1 g q.24 hours; I think we can stop that. cc: Guero Parks MD
--- NOTE | 2018-11-02 20:07 | HEMO/ONC PROGRESS NOTE ---
DATE: 11/02/2018 Ms. Koroma is now status post surgical biopsy with Dr. Cavanaugh yesterday on 11/01/2018. From our standpoint, if okay with Surgery and the primary team, the patient can be released and discharged home. We can follow up with the patient next week to review her biopsy results and discuss further treatment planning from there. We are available if there are any questions. Dictated by SHREE Baeza for Krissy Carrero MD cc: Krissy Carrero MD
[2018-11-02] MEDS: MIRALAX PO SCH (22:23)
[2018-11-03] MEDS: ZOFRAN IV PRN ×4 (00:32→20:56)
[2018-11-03] MEDS: BENADRYL IV PRN ×4 (00:32→21:56)
[2018-11-03] MEDS: MORPHINE IV PRN ×4 (00:32→20:56)
[2018-11-03] MEDS: MIRALAX PO SCH (08:35)
[2018-11-03] MEDS: NS 1,000 ML IV SCH ×2 (08:35→23:23)
[2018-11-03] MEDS: NICODERM PATCH TD SCH (08:36)
--- NOTE | 2018-11-03 11:49 | PROGRESS NOTE ---
DATE: 11/03/2018 SUBJECTIVE: Ms. Koroma is a little more confused and lethargic right now secondary to pain medicine. She did not get much sleep last night, and so she says she is very tired. OBJECTIVE: Vital Signs: Temp 98.4 degrees, pulse 93, respirations 18, blood pressure 171/87. HEENT: Pupils are equal and round. Lungs: Clear in all lung keyes. Cardiovascular: Regular rhythm and rate without murmur or S3. Abdomen: Soft. Skin: Warm and dry. LABORATORY DATA: Reviewed from the . ASSESSMENT AND PLAN: We plan on hopefully getting tissue results next week, and if she has carcinomatosis, then most likely we suspect it to be pancreatic region. She still has abdominal discomfort and not eating real, but we will advance her to a regular diet and see when she will be ready to go home. cc: Guero Parks MD
[2018-11-03] MEDS ORDERED: NEXIUM PO ONE (16:40)
[2018-11-03] MEDS: MAALOX PLUS LIQUID PO PRN (16:58)
[2018-11-04] MEDS: MORPHINE IV PRN ×4 (02:29→22:55)
[2018-11-04] MEDS: ZOFRAN IV PRN ×4 (02:29→22:55)
[2018-11-04] MEDS: NEXIUM PO SCH (06:53)
[2018-11-04] MEDS: MIRALAX PO SCH (10:10)
[2018-11-04] MEDS: NICODERM PATCH TD SCH (10:10)
[2018-11-04] MEDS: BENADRYL IV PRN ×4 (10:31→23:16)
--- NOTE | 2018-11-04 10:35 | PROGRESS NOTE ---
DATE: 11/04/2018 SUBJECTIVE: Ms. Koroma has been very lethargic. Her speech is a little bit slurred. She is fussing about not getting her pain medicines, but has difficulty keeping her eyes open. OBJECTIVE: Vital signs: Temperature 99 degrees, pulse 92, respirations 22, blood pressure 151/71. HEENT: Pupils are equal. Neck: No distended neck veins. Lungs: Clear anterior and lateral. Cardiovascular: Regular rhythm and rate without murmur or S3. Abdomen: She has some pressure in the lower abdomen. ASSESSMENT AND PLAN: 1. 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 Still waiting on her studies. Suspect this could be pancreatic in origin, but also could be ovarian. She is very lethargic, and I think we are going to have to make some decisions about the level of her pain medicine and also decisions about whether she is going to go home, go home with hospice, or if she needs to go somewhere to help with care. She does have some underlying cholelithiasis, but I do not feel like that is symptomatic. So still a lot of discomfort. 2. Review of her medication: She is on a nicotine patch 21 mg daily, getting normal saline at 75 mL an hour, and MiraLAX 17 g daily. cc: Guero Parks MD
[2018-11-04] MEDS: NS 1,000 ML IV SCH (11:35)
[2018-11-05] MEDS: MAALOX PLUS LIQUID PO PRN (02:05)
[2018-11-05] MEDS: ZOFRAN IV PRN ×4 (03:15→17:11)
[2018-11-05] MEDS: MORPHINE IV PRN ×3 (03:16→12:16)
[2018-11-05] MEDS: NS 1,000 ML IV SCH ×2 (03:17→16:07)
[2018-11-05] MEDS: NEXIUM PO SCH (06:59)
[2018-11-05] MEDS: NICODERM PATCH TD SCH (08:07)
[2018-11-05] MEDS: BENADRYL IV PRN ×3 (08:07→17:11)
[2018-11-05] MEDS: MIRALAX PO SCH (08:08)
[2018-11-05] MEDS: ULTRAM PO SCH (17:11)
[2018-11-05] MEDS ORDERED: MORPHINE IV PRN (17:16)
--- NOTE | 2018-11-05 17:28 | PROGRESS NOTE ---
DATE: 11/05/2018 SUBJECTIVE: Ms. Koroma is very lethargic and her words are slurred and difficult having a conversation. At the same time, she is still uncomfortable and requesting more for pain. Does not feel like she is sleeping well. OBJECTIVE: Vital Signs: Temperature 98.3, pulse 87, respirations 20, blood pressure 180/76. Eyes: Pupils are equal, round. Lungs: Are clear in all lung keyes. Cardiovascular: Regular rhythm and rate without murmur or S3. Abdomen: Soft, nondistended. She has some tenderness in the lower abdomen. : Her urine output is 3100 mL. ASSESSMENT AND PLAN: 1. Metastatic carcinomatosis of the abdomen, unsure of the pathology. Suspect could be pancreatic cancer. We will need to discuss what the plan is. At the level of sedation she is receiving now, she is not going to be able to make decisions and I did talk to her about cutting back on sedation so we can talk about what the plan I will discuss with her family and her daughter. 2. She is on a nicotine patch. cc: Guero Parks MD
[2018-11-06] MEDS: NS 1,000 ML IV SCH (04:45)
[2018-11-06] MEDS: ZOFRAN IV PRN ×3 (05:04→21:22)
[2018-11-06] MEDS: NEXIUM PO SCH (06:08)
[2018-11-06 07:52] LABS: HEMATOCRIT 43.6 % (37.0-47.0); HEMOGLOBIN 14.7 g/dL (12.0-16.0); MCH 32.5 PG (27-31); MCHC 33.7 g/dL (33-37); MCV 96.2 FL (81-99); MPV 12.2 FL (7.4-10.4); RBC 4.53 XMIL (4.2-5.4); WBC 8.21 X1000 (4.8-10.8)
[2018-11-06 08:20] LABS: AGAP 15; ALB/GLOB RATIO 1.4; ALBUMIN 2.9 g/dL (3.5-5.0); ALKALINE PHOSPHATASE 99 U/L (32-104); BUN 3 mg/dL (8-22); CALCIUM 8.4 mg/dL (8.8-10.2); CHLORIDE 91 mmol/L (98-107); COSMO 260; CREATININE 0.5 mg/dL (0.5-0.9); ESTIMATED GFR > 60; GLUCOSE 105 mg/dL (70-104); GOT 12 U/L (10-30); GPT 6 U/L (10-36); POTASSIUM 2.9 mmol/L (3.5-5.1); SODIUM 131 mmol/L (136-145); TCO2 25 mmol/L (25-35); TOTAL BILIRUBIN 0.42 mg/dL (0.20-1.00)
[2018-11-06] MEDS: NICODERM PATCH TD SCH (09:54)
[2018-11-06] MEDS: MIRALAX PO SCH (09:55)
[2018-11-06] MEDS: ULTRAM PO SCH ×2 (09:55→15:43)
[2018-11-06] MEDS ORDERED: KLOR-CON PO ONE (10:42)
[2018-11-06 11:21] LABS: MAGNESIUM 1.2 mg/dL (1.5-2.7); PHOSPHORUS 2.5 mg/dL (2.7-4.5)
[2018-11-06] MEDS ORDERED: MAGNESIUM SULFATE 2 GM/S.W.I. 2 GM/50 ML IVPB IV ONE (11:53)
[2018-11-06] MEDS ORDERED: SODIUM PHOSPHATE 30 MMOL in NS 250 ML IV ONE (11:53)
[2018-11-06] MEDS ORDERED: NS NEB INH SCH (12:00)
--- NOTE | 2018-11-06 12:06 | HEMO/ONC PROGRESS NOTE ---
DATE: 11/06/2018 PLAN: Plan today is to have a family meeting to discuss treatment options versus hospice. We will report back once a final decision is made. There is now family present that was not present earlier. Dr. Carrero to discuss with the family. Dictated by SHREE Baeza for Krissy Carrero MD cc: Krissy Carrero MD
--- NOTE | 2018-11-06 14:07 | Diag Imaging Result Doc PS360 ---
EXAM: CHEST-PORTABLE INDICATION: dyspnea TECHNIQUE: One view COMPARISON: 05/07/2018 FINDINGS: There are old healed rib fractures on the left. The lungs are grossly clear. There is no discrete pleural fluid collection or pneumothorax. The cardiomediastinal silhouette and central vasculature are grossly unremarkable. IMPRESSION: No evidence of acute pathology by plain radiograph. Electronically signed by Duke Perez 11/06/2018 2:05 PM
[2018-11-06] MEDS: PERCOCET-5 PO PRN ×2 (15:45→21:22)
[2018-11-06] MEDS: XOPENEX NEB INH SCH ×3 (15:56→22:45)
[2018-11-06] MEDS: MUCOMYST 20% INH SCH ×2 (15:56→22:45)
--- NOTE | 2018-11-06 17:59 | PROGRESS NOTE ---
DATE: 11/06/2018 SUBJECTIVE: The patient is resting. She states that she does not feel well and has absolutely no appetite. She also complains of shortness of breath and abdominal pain. OBJECTIVE: Vital Signs: Temperature 99 degrees, blood pressure 141/64, heart rate 111, respirations 18, O2 saturation 96% on 2 L nasal cannula, intake 900. General: This is a chronically ill-appearing elderly female lying in bed in no acute distress. Heart: S1, S2 normal. Tachycardic. Lungs: Coarse breath sounds with crackles. Abdomen: Positive bowel sounds. Soft. Diffuse tenderness. Extremities: No edema. No cyanosis. Neurologic: The patient is lethargic but will awaken and answer questions. LABS: White blood cell count 8.2, hemoglobin 14, hematocrit 43, platelets 128,000. Sodium 131, potassium 2.9, chloride 91, CO2 24, phosphorus 2.5, magnesium 1.2, albumin 2.9. ASSESSMENT AND PLAN: 1. Metastatic adenocarcinoma. The peritoneal biopsy is showing possible pancreatic primary. We will await further recommendations and plans as per the oncology service. 2. Severe protein calorie malnutrition. The patient is not eating her meals at all. She states that she has no appetite. We will start Megace. 3. Tobacco dependence. Aware. 4. Hypomagnesemia. We will replace magnesium. 5. Hypophosphatemia. We will replace the phosphorus. cc: Cheryl Lam MD
[2018-11-06] MEDS: MEGACE LIQUID PO SCH (21:22)
[2018-11-07] MEDS: XOPENEX NEB INH SCH ×4 (03:32→22:01)
[2018-11-07] MEDS: ZOFRAN IV PRN (06:51)
[2018-11-07] MEDS: PERCOCET-5 PO PRN ×3 (06:52→22:29)
[2018-11-07] MEDS: NEXIUM PO SCH ×2 (06:52→08:00)
[2018-11-07 07:38] LABS: HEMATOCRIT 46.7 % (37.0-47.0); HEMOGLOBIN 16.4 g/dL (12.0-16.0); MCH 33.8 PG (27-31); MCHC 35.1 g/dL (33-37); MCV 96.3 FL (81-99); RBC 4.85 XMIL (4.2-5.4); RDW 14.7 % (11.5-14.5); WBC 11.38 X1000 (4.8-10.8)
[2018-11-07 07:44] LABS: MAGNESIUM 1.6 mg/dL (1.5-2.7); PHOSPHORUS 2.7 mg/dL (2.7-4.5)
[2018-11-07] MEDS ORDERED: MAGNESIUM SULFATE 2 GM/S.W.I. 2 GM/50 ML IVPB IV ONE ×2 (08:17→11:03)
[2018-11-07] MEDS: MEGACE LIQUID PO SCH ×2 (08:32→22:27)
[2018-11-07] MEDS: MIRALAX PO SCH (08:33)
[2018-11-07] MEDS: NICODERM PATCH TD SCH (08:38)
[2018-11-07] MEDS: MUCOMYST 20% INH SCH ×2 (10:11→22:02)
[2018-11-07 10:14] LABS: AGAP 13; BUN 5 mg/dL (8-22); CALCIUM 8.5 mg/dL (8.8-10.2); CHLORIDE 96 mmol/L (98-107); COSMO 267; CREATININE 0.4 mg/dL (0.5-0.9); ESTIMATED GFR > 60; GLUCOSE 125 mg/dL (70-104); POTASSIUM 3.5 mmol/L (3.5-5.1); SODIUM 134 mmol/L (136-145); TCO2 25 mmol/L (25-35)
--- NOTE | 2018-11-07 15:35 | PROGRESS NOTE ---
DATE: 11/07/2018 SUBJECTIVE: The patient states that she has no appetite. She also complains of abdominal pain. She is having regular bowel movements. OBJECTIVE: Vital Signs: Temperature 98.4 degrees, blood pressure 132/66, heart rate 90, respirations 18, O2 saturation is 95% on 3 L nasal cannula. General: This is a chronically ill- appearing, elderly female lying in bed, in no acute distress. Heart: S1, S2. Normal. Lungs: Equal air entry bilaterally. No wheezing. No rales. Abdomen: Positive bowel sounds. Soft, nontender, nondistended. Extremities: No edema. No cyanosis. Neurologic: The patient is alert and oriented x3. LABS: White blood cell count 11, hemoglobin 16, hematocrit 46, platelets 124,000. Sodium 134, potassium 3.5, chloride 96, CO2 25, BUN 5, creatinine 0.4, glucose 125. ASSESSMENT AND PLAN: 1. Metastatic pancreatic adenocarcinoma. Management as per the oncologist. 2. Severe protein calorie malnutrition. Continue with Megace and meal supplements. 3. Tobacco dependence. The patient has been counseled about smoking cessation. 4. Constipation. Continue with scheduled laxative therapy. 5. Continue with physical therapy. cc: Cheryl Lam MD MTDD
[2018-11-07] MEDS: BENADRYL IV PRN (22:32)
[2018-11-08] MEDS: XOPENEX NEB INH SCH ×3 (04:00→15:47)
[2018-11-08] MEDS: NEXIUM PO SCH (06:43)
[2018-11-08 08:01] LABS: HEMATOCRIT 42.9 % (37.0-47.0); HEMOGLOBIN 14.6 g/dL (12.0-16.0); MCH 32.5 PG (27-31); MCV 95.5 FL (81-99); MPV 12.5 FL (7.4-10.4); RBC 4.49 XMIL (4.2-5.4); RDW 14.1 % (11.5-14.5); WBC 6.92 X1000 (4.8-10.8)
[2018-11-08 08:34] LABS: AGAP 12; BUN 5 mg/dL (8-22); CALCIUM 8.4 mg/dL (8.8-10.2); CHLORIDE 96 mmol/L (98-107); COSMO 271; CREATININE 0.4 mg/dL (0.5-0.9); ESTIMATED GFR > 60; GLUCOSE 99 mg/dL (70-104); MAGNESIUM 1.7 mg/dL (1.5-2.7); SODIUM 137 mmol/L (136-145); TCO2 29 mmol/L (25-35)
[2018-11-08] MEDS ORDERED: POTASSIUM PHOSPHATE 30 MMOL in NS 250 ML IV ONE (08:37)
[2018-11-08] MEDS: MIRALAX PO SCH ×2 (09:01→09:03)
[2018-11-08] MEDS: NICODERM PATCH TD SCH (09:01)
[2018-11-08] MEDS: PERCOCET-5 PO PRN (09:01)
[2018-11-08] MEDS: MEGACE LIQUID PO SCH (09:01)
[2018-11-08] MEDS ORDERED: PERCOCET-5 ONE (09:03)
[2018-11-08] MEDS: MUCOMYST 20% INH SCH (09:46)
[2018-11-08] MEDS ORDERED: MAGNESIUM SULFATE 2 GM/S.W.I. 2 GM/50 ML IVPB IV ONE (10:22)
[2018-11-08 15:56] VITALS: BP 171/77
--- NOTE | 2018-11-09 07:43 | DISCHARGE SUMMARY ---
ADMISSION DATE: 10/29/2018 DISCHARGE DATE: 11/08/2018 FINAL DISCHARGE DIAGNOSES: 1. Metastatic pancreatic adenocarcinoma. 2. Chronic obstructive pulmonary disease. 3. Severe protein-calorie malnutrition. 4. Constipation. 5. Tobacco dependence. 6. Hypokalemia. 7. Anxiety disorder. CONSULTATIONS: 1. General surgery consultation with Dr. Cavanaugh. 2. Oncology consultation with Dr. Carrero. PROCEDURES: Diagnostic laparoscopy with biopsy of peritoneal implants and drainage of ascites. HOSPITAL COURSE: Ms. Koroma is a 63-year-old female with a history of anxiety disorder and COPD who presented to the ER with a chief complaint of abdominal pain and ascites. On admission, an abdominal ultrasound was done that revealed cholelithiasis. The patient also had a pelvic ultrasound done that showed a small amount of fluid in the pelvis. General Surgery was consulted for further assistance with management. There was question about a pancreatic mass as well. It was then recommended by General Surgery that the patient undergo a diagnostic laparoscopy. The patient was taken to the operating room on 11/01/2018, at which time a diagnostic laparoscopy with biopsy of the peritoneal implants and drainage of ascites were performed. Eventually, the pathology came back indicating metastatic pancreatic adenocarcinoma. These results were discussed with the patient's family and the patient by Dr. Carrero, and the patient opted to undergo palliative chemotherapy, and that will be initiated upon discharge from the hospital. Today the patient's potassium is 3 with a phosphorus of 2.5. Both of these electrolytes will be replenished, and the patient will be discharged home today so that she can go to her appointment with Dr. Carrero, scheduled for 11/09/2018. DISCHARGE MEDICATIONS: 1. Percocet 5/325 one tablet orally every 6 hours p.r.n. for pain. 2. Flexeril 10 mg p.o. 3 times a day. 3. Xanax 1 mg p.o. twice a day. 4. Lisinopril 40 mg p.o. daily. 5. Hydrochlorothiazide 25 mg p.o. daily. 6. DuoNeb 3 mL inhaled every 6 hours p.r.n. for shortness of breath. DISCHARGE DIET: Regular diet. ACTIVITY: As tolerated. FOLLOWUP INSTRUCTIONS: The patient is scheduled to follow up with Dr. Carrero on 11/09/2018. cc: Cheryl Lam MD
== END 2018-11-08 18:30 | disposition home health service (06) ==
LOC: 3N 10:51 → DIRADM 10:51 → 3N 11:22 → SUATTDRO 11:22 → EDSTATUS 11-01 07:00 → UNDODISIN 11-08 18:30
PROVIDERS: ADMIT Emergency Medicine; ATTEND Family Medicine
CPT/HCPCS: 71010; 71045; 71260; 74177; 76700; 76856; 80048; 80053; 80076; 81001; 82378; 83605; 83690; 83735; 84100; 85025; 85027; 86301; 86304; 87088; 88305; 88313; 88341; 88342; 88343; 88360; 94640; 94761; 96365; 96366; 96374; 96375; 96376; 97162; 97530; 99285; A9270; G0378; G0461; G0462; J0330; J0696; J1100; J1200; J2270; J2405; J2543; J2550; J3010; J3475; J7030; J7050; J7120; Q9967; S0179

== ENCOUNTER 2019-01-21 17:03 | Inpatient (IN) ==
[2019-01-21] MEDS ORDERED: NS 1,000 ML IV ONE ×2 (18:32→23:12)
[2019-01-21] MEDS ORDERED: XOPENEX NEB INH ONE (18:36)
--- NOTE | 2019-01-21 18:36 | PROVIDER DOCUMENTATION ---
HPI-General Adult - General Chief Complaint: Fever Stated Complaint: WEAKNESS,COUGH,SORE THROAT/CANCER PATIENT Time Seen by Provider: 01/21/19 18:09 Source: patient Allergies/Adverse Reactions: Patient Allergies Allergy/AdvReac Type Severity Reaction Status Date / Time codeine AdvReac NAUSEA/VOMI Verified 11/15/18 13:59 TING Home Medications: Home Medication List Medication Instructions Recorded Confirmed Last Taken Type Alprazolam [Xanax] 1 mg PO BID 03/29/16 01/21/19 12/03/18 11:00 History 1 Albuterol 2.5MG/Ipratrop 0.5MG 3 ml INH Q4-6H PRN PRN #120 neb 05/09/18 01/21/19 Unknown Rx [Duoneb (A & A)] Oxycodone/APAP 5 mg/325 mg 1 ea PO Q6H PRN #30 tab 11/08/18 01/21/19 12/03/18 20:30 Rx [Percocet-5] 1 Ondansetron Odt [Zofran Odt] 1 dose PO PRN PRN 11/15/18 01/21/19 12/02/18 History 1 Rivaroxaban [Xarelto] 1 tab PO BID 12/04/18 01/21/19 11/30/18 History 1 Tramadol [Ultram] 50 mg PO Q4H PRN PRN #30 tab 12/04/18 01/21/19 Unknown Rx Fondaparinux [Arixtra] 5 mg SUBQ DAILY 01/21/19 01/21/19 Unknown History Gabapentin 300 mg PO BID 01/21/19 01/21/19 Unknown History Nicotine Patch [Nicoderm Patch] 21 mg TD DAILY 01/21/19 01/21/19 Unknown History - History of Present Illness -Gen Adult Nature of Presenting Problems: Patient is a 63 yowf who complains of sore throat, nasal congestion, dizziness, fatigue, and productive cough with yellow sputum since last week. Had low-grade fever at home today. Hx of pancreatic cancer and is currently on chemotherapy. Currently on abx prescribed by her oncologist since last week. States, "I'm just getting worse." Review of Systems - Adult - REVIEW OF SYSTEMS - ADULT Constitutional: reports: see HPI, chills, fever Eyes: reports: no symptoms reported Ears, Nose, Mouth & Throat: reports: see HPI, sinus problem, throat pain Cardiovascular: reports: no symptoms reported Respiratory: reports: see HPI, cough. denies: chronic cough, dyspnea on exertion, excessive sputum production, hemoptysis, pleurisy, shortness of breath, wheezing Gastrointestinal: reports: no symptoms reported Genitourinary: reports: no symptoms reported Musculoskeletal: reports: no symptoms reported Integumentary: reports: no symptoms reported Neurological: reports: see HPI, dizziness/vertigo Psychiatric: reports: no symptoms reported Endocrine: reports: no symptoms reported Hematologic/Lymphatic: reports: no symptoms reported Allergic/Immunologic: reports: no symptoms reported All Other Systems: Reviewed and Negative Past History - Adult - PAST MEDICAL HISTORY-ADULT Review of Records: reports: Old Records Reviewed, Nursing Assessment Review, Medications Reviewed, Social history reviewed & non-contributory. Major Childhood Illnesses: reports: denies history Cardiovascular: reports: HTN Respiratory: reports: COPD Gastrointestinal: reports: cancer Obstetrical/Gynecological: reports: denies history Genitourinary: reports: denies history Musculoskeletal: reports: denies history Neurological: reports: denies history Psychiatric: reports: anxiety Endocrine/Immune: reports: denies history Other Conditions: reports: denies history - PRIOR SURGERIES/PROCEDURES Surgical/Procedure History: reports: orthopedic (extremity) - IMMUNIZATION STATUS Childhood Immunizations: See Nurse Assessment Flu Vaccine: See Nurse Assessment - FAMILY HISTORY Family History: reviewed, not pertinent - SOCIAL HISTORY Smoking: cigarettes, less than 1 pack/day Alcohol Use Frequency: never Physical Exam-General - PHYSICAL EXAM-ADULT Initial Vital Signs Reviewed: Yes - CONSTITUTIONAL General Appearance: alert, no apparent distress. negative: lethargic, slow to respond - EYES Eyes: PERRL/EOMI, pink conjunctivae - HEAD, EARS, NOSE, MOUTH & THROAT HENMT: normocephalic/atraumatic, moist mucous membranes, TMs normal, other (Multiple white plaques noted to oropharynx) - NECK Neck: non-tender, full range of motion, supple, normal inspection - RESPIRATORY Respiratory: chest non-tender, no respiratory distress, no accessory muscle use, rhonchi (Diffuse expiratory) - CARDIOVASCULAR Cardiovascular: normal peripheral pulses, regular rate, rhythm, no gallop, no murmur - GASTROINTESTINAL (ABDOMEN) Abdominal Exam: normal bowel sounds, soft, no organomegaly, no pulsatile mass, tenderness (Diffuse- pt states, "I'm sore from coughing"). negative: distended, guarding, rigid, rebound, hernia, mass - MUSCULOSKELETAL Back Exam: normal inspection, no CVA tenderness Extremity: normal range of motion, non-tender, normal gait, normal inspection - SKIN Integumentary: normal color, warm/dry. negative: cyanosis, diaphoresis, jaundice, mottled, pallor - NEUROLOGIC Neurologic: grossly normal, no motor/sensory deficits - PSYCHIATRIC Psych/Mental Status: normal mood/affect, normal thought content, normal thought process, oriented x 3 Progress - PLAN OF CARE/RESULTS Progress/Plan/Lab Results: Vital Signs - 8 hr 01/21/19 17:19 01/21/19 17:21 Temperature 100.1 F H Pulse Rate 117 H Respiratory Rate 18 Blood Pressure 78/54 O2 Sat by Pulse Oximetry 99 Orders Category Date Time Status CHEST-2 VIEWS [RAD] Stat Exams 01/21/19 18:30 Ordered BLOOD CULTURE [BLDCUL] Stat Lab 01/21/19 18:30 Uncollected CBC WITH DIFF [HEME] Stat Lab 01/21/19 18:29 Ordered COMPREHENSIVE METABOLIC PANEL [CHEM] Stat Lab 01/21/19 18:30 Uncollected DIRECT STREP Stat Lab 01/21/19 18:32 Uncollected INFLUENZA SCREEN A/B Stat Lab 01/21/19 18:32 Uncollected LACTATE, PLASMA [CHEM] Stat Lab 01/21/19 18:30 Uncollected LIPASE [CHEM] Stat Lab 01/21/19 18:30 Uncollected UA NIMS W/REFLEX CULT [URINALYSIS] Stat Lab 01/21/19 18:30 Uncollected Ns 1000 ml IV Bolus X1 Med 01/21/19 18:32 Ordered 0.9% Sodium Chloride Inj [Ns] 1,000 ml IV 999 mls/hr Result Diagrams: 01/21/19 20:10 01/21/19 20:10 - XRAY 1 XRAY Study: Chest (IMPRESSION: Interval development of vague groundglass opa city in the right lower lung zone suspicious for developing pneumonia. Electronically signed by Duke Perez 01/21/2019 7:57 PM) - CONSULTS/PCP/HOSPITALIST Notification #1 *Consult/PCP/Hospitalist*: Dr. Quach Time Discussed: 22:22 (PNA, sepsis) Consult Disposition: Admit - CHANGE OF SHIFT REPORT (ED Provider) 1 Report Given and Care Transferred to:: Dr. Griggs Time of Transfer: 20:50 Items Pending: Labs Departure - Departure Date of Disposition Decision: 01/21/19 Time of Disposition Decision: 22:22 DIAGNOSIS: Sepsis Disposition: ADMITTED INPATIENT 09 Certified Medical Emergency: Emergent Condition: Stable Referrals and Follow-Ups: Antolin Parks MD [Primary Care Provider] - Discharge Education: Steps to Quit Smoking, [id number] - Critical Care Note This patient required my direct & personal management of CC.: No Attestation - Physician/ INEZ Attestation Patient care was provided by Advanced Practice Provider:: Yes Advanced Practice Provider:: Melisa Multani Advanced Practice Provider documentation review:: The Mid-level provider documentation, treatment plan and medical decision making was reviewed by the physician who agrees with all treatment and medical decision making by the MLP. The physician spent face to face time with patient:: No Advanced Practice Provider documentation review:: Supervising physician onsite and consulted in the evaluation and care of this patient. The physician did not have a face to face encounter with the patient.
[2019-01-21] MEDS ORDERED: NS NEB INH SCH (18:45)
--- NOTE | 2019-01-21 19:59 | Diag Imaging Result Doc PS360 ---
EXAM: CHEST-2 VIEWS INDICATION: cough, fever, on chemotherapy TECHNIQUE: Right chest port is in stable position. COMPARISON: 12/04/2018 FINDINGS: Right chest port is in stable position. There are a couple of old rib fractures on the left. There is mild patchy groundglass opacity in the right lower lung zone that is not seen on the previous study and is suspicious for developing pneumonia. There is no discrete pleural fluid collection or pneumothorax. The cardiomediastinal silhouette and central vasculature are grossly unremarkable. IMPRESSION: Interval development of vague groundglass opacity in the right lower lung zone suspicious for developing pneumonia. Electronically signed by Duke Perez 01/21/2019 7:57 PM
[2019-01-21] MEDS ORDERED: ROCEPHIN 1 GM in NS 50 ML IV ONE (20:07)
[2019-01-21] MEDS ORDERED: ZOSYN 3.375 GM in NS 50 ML IV ONE (20:07)
[2019-01-21 20:51] LABS: EOS# 0.08 X1000 (0.0-0.7); HEMATOCRIT 24.5 % (37.0-47.0); HEMOGLOBIN 8.4 g/dL (12.0-16.0); IMM GRAN# 0.03 X1000 (0.0-0.04); IMM GRAN% 0.4 % (0.0-0.5); LYMPH# 1.51 X1000 (1.2-3.4); LYMPH% 19.4 % (20.5-51.1); MCH 33.1 PG (27-31); MCHC 34.3 g/dL (33-37); MCV 96.5 FL (81-99); MONO# 0.15 X1000 (0.11-0.59); MONO% 1.9 % (1.7-9.3); MPV 13.7 FL (7.4-10.4); NEUT# 6.02 X1000 (1.4-6.5); NEUT% 77.3 % (42.2-75.2); PLT 216 X1000 (130-400); RBC 2.54 XMIL (4.2-5.4); RDW 23.5 % (11.5-14.5); WBC 7.79 X1000 (4.8-10.8)
[2019-01-21 21:20] LABS: AGAP 11; ALB/GLOB RATIO 1.1; ALBUMIN 2.7 g/dL (3.5-5.0); ALKALINE PHOSPHATASE 182 U/L (32-104); BUN 15 mg/dL (8-22); CALCIUM 8.5 mg/dL (8.8-10.2); CHLORIDE 102 mmol/L (98-107); COSMO 278; CREATININE 0.7 mg/dL (0.5-0.9); ESTIMATED GFR > 60; GLUCOSE 127 mg/dL (70-104); GOT 26 U/L (10-30); GPT 12 U/L (10-36); LIPASE 8 U/L (13-60); POTASSIUM 4.3 mmol/L (3.5-5.1); SODIUM 138 mmol/L (136-145); TCO2 25 mmol/L (25-35); TOTAL BILIRUBIN 1.09 mg/dL (0.20-1.00); TOTAL PROTEIN 5.2 g/dL (6.3-8.3)
[2019-01-21 21:30] LABS: URINE SOURCE CLEAN CATCH
[2019-01-21 21:37] LABS: BILIRUBIN URINE SMALL (NEGATIVE); BLOOD URINE NEGATIVE (NEGATIVE); COLOR YELLOW; GLUCOSE URINE NEGATIVE (NEGATIVE); KETONE URINE NEGATIVE (NEGATIVE); LEUKOCYTES URINE MODERATE (NEGATIVE); NITRITE URINE NEGATIVE (NEGATIVE); PH URINE 6.5; PROTEIN URINE TRACE mg/dL (NEGATIVE); SP GRAVITY URINE 1.022; TURBIDITY URINE CLEAR (CLEAR); UR EPITHELIAL CELLS >10 /HPF (<10); URINE BACTERIA NEGATIVE /HPF; URINE RBC <10 /HPF (<10); UROBILINOGEN URINE 2 mg/dL (NORMAL)
[2019-01-21] MEDS ORDERED: FLORINEF PO ONE (23:11)
[2019-01-21] MEDS ORDERED: SOLU-CORTEF IV ONE (23:11)
[2019-01-21] MEDS ORDERED: DIFLUCAN 200 MG/NS 200 MG/100 ML IVPB IV ONE (23:17)
[2019-01-21 23:28] LABS: RETIC% 0.51 % (0.8-2.1); RETIC-HE 34.2 PG (28.2-36.6)
[2019-01-22] MEDS ORDERED: TYLENOL PO PRN (00:14)
[2019-01-22] MEDS: ULTRAM PO PRN (00:45)
--- NOTE | 2019-01-22 01:26 | HISTORY AND PHYSICAL ---
PRIMARY CARE PHYSICIANS: Krissy Carrero MD, and Antolin Parks MD. REASON FOR ADMISSION: Fever, chills, fatigue, and orthostatic lightheadedness today. HISTORY OF PRESENT ILLNESS: Ms. Tanvi Koroma is an unfortunate 63-year-old with a history of COPD, hypertension and anxiety who saw Dr. Krissy Carrero last week for chest congestion and start on an unnamed antibiotic. She said her symptoms have been getting progressively worse, i.e., cough and shortness of breath with minimal exertion. He she states that she came in today because once she tried to get up this morning she almost passed out on several occasions. She contacted Dr. Krissy Carrero who advised her to come to the ER. She also complains of increased weakness over the last 2 days with fever and chills and cough now productive of yellowish sputum. She denies any nausea or vomiting. She denies any orthopnea or PND. She denies any diarrhea. The patient denies any bleeding from any orifice. REVIEW OF SYSTEMS: The patient does complain of dysphagia to solids and liquids for the last 3 to 4 days. The patient states that she has lost about 38 pounds in weight over the last few months. Appetite is diminishing according to the patient. The patient admits to having constipation with vague abdominal cramping pain. Otherwise 12 system review was done. Positive findings per HPI. She does admit to feeling thirsty, but her urine output has not changed. No genitourinary complaints. ALLERGIES: Codeine and hydrocodone. HOME MEDICATIONS: Include Xanax 1 mg b.i.d., gabapentin 300 mg b.i.d., Arixtra 5 mg subcutaneous daily, Nicoderm 21 mg daily, ?Xarelto 2.5 b.i.d., DuoNeb q.4 p.r.n., oxycodone 5 mg q.6 p.r.n., tramadol 50 mg q.4 p.r.n. SURGICAL HISTORY: Med port placed in the right pectoral area. Right hand surgery. Neck fusion. FAMILY HISTORY: No cancer in first-degree relatives or diabetes. SOCIAL HISTORY: She smokes half pack a day. No alcohol use or drug use. She lives with her boyfriend. LABORATORY WORK: White count 7000, H H 8 and 24. Last hematocrit was in November and was about 42, platelets 216,000. Neutrophils 77. Glucose 127, BUN 15, creatinine 0.7, calcium 8.5, alkaline phosphatase 182, lipase is normal, lactate is normal. Urinalysis with moderate leukocyte, greater than 10 epithelial cells. Chest x-ray suggests right lower lobe infiltrate. PHYSICAL EXAMINATION: GENERAL: A chronically ill, thin, middle-aged woman who is alert oriented to person, place and time, with normal mood and affect. VITAL SIGNS: Temperature is a 100.1 degrees, respiratory rate is 16, heart rate 88, blood pressure is 78/54, after a 1 L bolus it is up to 126/73. HEENT: Head is normocephalic and atraumatic. She has alopecia. Eyes: LINDA. EOMI. She is anicteric but pale. ENT and oropharynx exam shows oral thrush on the soft and hard palate. No other exudates or erythema. No signs of cyanosis. NECK: Supple. No JVD or carotid bruit. No thyromegaly. SKIN: She has slight decreased skin turgor. Chest: The patient has a med port on the right pectoral area. No surrounding erythema. Bibasilar crepitations more on the left than on the right. A few scattered wheezes heard. Decreased entry in the bases. Cardiovascular: First and second heart sounds heard. No gallops, murmurs, or rubs. Rhythm is regular. Abdomen: Slightly scaphoid, soft, diffuse tenderness. No rebound or guarding. Bowel sounds are hypoactive. Rectal: Deferred at this time. Extremities: The patient has no edema, clubbing or peripheral cyanosis. Decreased pulse volume distally in all extremities. Neurological: Grossly intact. No focal deficits. Skin: Decreased turgor. No overt or fresh rashes, lesions or erythema. Musculoskeletal: The patient is diffusely sarcopenic. ASSESSMENT: 1. Right lower lobe pneumonia. 2. Chronic obstructive pulmonary disease. 3. Oral and possible esophageal thrush causing dysphagia. 4. Anemia. 5. Hypotension, cannot rule out occult blood loss. 6. Pancreatic cancer. 7. Tobacco use. PLAN: The patient will be treated with broad-spectrum antibiotics, Levaquin and Zosyn. For now we will support with O2 and nebulizer treatments. The patient's hypotension is a little worrisome. No overt bleeding or volume loss. One should entertain a possible adrenal insufficiency. I have ordered a random cortisol level. We will start on steroids over the next 24 hours. Hemoccult stools were ordered in light of the drop of her hematocrit from November to now, which may or may not be related to any chemotherapy. The patient will be treated with nystatin and Diflucan for presumptive oral esophageal candidiasis. We will consult Dr. Carrero for further input and management of this patient. cc: MD Krissy Maxwell MD Gregory S. Cheatham, MD
[2019-01-22] MEDS: NS 1,000 ML IV SCH ×5 (02:30→23:45)
[2019-01-22] MEDS: LEVAQUIN 750 MG/D5W 750 MG/150 ML IVPB IV SCH (02:42)
[2019-01-22] MEDS: DUONEB (A & A) INH SCH ×5 (03:14→21:25)
[2019-01-22] MEDS: ZOSYN 3.375 GM in NS 50 ML IV SCH ×4 (04:15→23:45)
[2019-01-22 07:15] LABS: HEMATOCRIT 21.8 % (37.0-47.0); HEMOGLOBIN 7.2 g/dL (12.0-16.0); MCV 102.8 FL (81-99); RBC 2.12 XMIL (4.2-5.4); RDW 24.4 % (11.5-14.5); WBC 3.52 X1000 (4.8-10.8)
[2019-01-22 07:16] LABS: BASO# 0.01 X1000 (0.0-0.2); BASO% 0.3 % (0.0-0.8); IMM GRAN# 0.02 X1000 (0.0-0.04); IMM GRAN% 0.6 % (0.0-0.5); LYMPH# 0.11 X1000 (1.2-3.4); LYMPH% 3.1 % (20.5-51.1); MONO# 0.05 X1000 (0.11-0.59); MONO% 1.4 % (1.7-9.3); MPV 13.5 FL (7.4-10.4); NEUT# 3.33 X1000 (1.4-6.5); NEUT% 94.6 % (42.2-75.2); PLT 185 X1000 (130-400)
[2019-01-22 07:26] LABS: AGAP 11; BUN 13 mg/dL (8-22); CALCIUM 7.6 mg/dL (8.8-10.2); CHLORIDE 104 mmol/L (98-107); COSMO 280; CREATININE 0.7 mg/dL (0.5-0.9); ESTIMATED GFR > 60; GLUCOSE 238 mg/dL (70-104); POTASSIUM 4.6 mmol/L (3.5-5.1); SODIUM 136 mmol/L (136-145); TCO2 21 mmol/L (25-35)
[2019-01-22 07:55] LABS: ANISOCYTOSIS 1+; BANDS 2 % (0-1); HYPOCHROM 1+; LYMPHS 8 % (21-51); SEGS 90 % (42-75)
[2019-01-22] MEDS ORDERED: MYCOSTATIN SUSP PO SCH (09:00)
[2019-01-22] MEDS: NEURONTIN PO SCH ×2 (10:30→20:26)
[2019-01-22] MEDS: SOLU-CORTEF IV SCH ×4 (10:30→23:45)
[2019-01-22] MEDS: NICODERM PATCH TD SCH (10:30)
[2019-01-22] MEDS: XANAX PO SCH ×2 (10:30→20:26)
--- NOTE | 2019-01-22 12:38 | Diag Imaging Result Doc PS360 ---
ABDOMEN FLAT/UPRIGHT - 01/22/2019 INDICATION: possible ileus COMPARISON: 10/22/2018 FINDINGS: There is some mild constipation of the ascending colon. No abnormally gas dilated loops of bowel. No free air. IMPRESSION: Mild constipation of the ascending colon but no obstruction. Electronically signed by Adilson Steve 01/22/2019 12:36 PM
--- NOTE | 2019-01-22 17:36 | PROGRESS NOTE ---
DATE: 01/22/2019 SUBJECTIVE: Ms. Koroma was admitted on 01/21/2019, followed by Dr. Krissy Carrero and Dr. Antolin Parks. Came in with fever, chills, fatigue, orthostatic lightheadedness. She is a 63-year-old female with a history of COPD, hypertension, anxiety. Saw Dr. Krissy Carrero last week for chest congestion. Was put on unnamed antibiotic. Symptoms progressively got worse. Then came into the emergency room passed out on several occasions. Complains of increased weakness over the last couple days, nonproductive yellowish sputum. She has had neck surgery and neck fusion, a med port placed in her right pictorial area so was admitted. Right lower lobe pneumonia, chronic obstructive pulmonary disease exacerbation, oral and possible esophageal thrush causing dysphagia, anemia, hypotension and history of pancreatic cancer, tobacco use. She feels washed out, but her breathing is better. Still coughing, but seems like it is clearing a little better for her. OBJECTIVE: Vital Signs: Temp 97.5, pulse 106, respirations 16, blood pressure 125/64. HEENT: Pupils are equal and round. Lungs are clear in all lung keyes. Cardiovascular: Regular rhythm and rate without murmur or S3. Abdomen: Abdomen is soft. Integument: Skin is warm and dry. LABORATORY: Blood work yesterday: White count 3520, hematocrit is 21, hemoglobin 7.2, platelet count 185,000. Sodium 136, potassium 4.6, chloride 104, BUN 13, creatinine 0.7. Ferritin 1416. Albumin was 2.7. Her chest x-ray on the , which is yesterday: Interval developed of vague ground-glass opacity in the right lower lung zone, suspicious for developing pneumonia and she has mild constipation of the ascending colon with no obstruction. ASSESSMENT AND PLAN: 1. Right lower lobe pneumonia. 2. Chronic obstructive pulmonary disease exacerbation. 3. Oral and possible esophageal thrush. 4. Anemia. 5. Hypotension, which is better. Continue fluids. 6. History of pancreatic cancer. 7. Tobacco use. Have counseled her on the importance of tobacco cessation. REVIEW OF ORDERS: Xanax 1 mg b.i.d., Neurontin 300 mg b.i.d., hydrocortisone 50 mg IV q.6, Levaquin 750 mg IV q.24 hours, Nicoderm patch, normal saline at 175 mL an HR. Ultram 50 mg q.4 hours p.r.n., Zosyn 3.375 g IV q.6 hours, fluconazole 200 mg IV given 1 dose, fludrocortisone she was given 0.1 mg p.o. 1 time yesterday. cc: Guero Parks MD MTDD
[2019-01-22] MEDS: XARELTO PO SCH (18:02)
[2019-01-22] MEDS ORDERED: MILK OF MAGNESIA PO PRN (18:21)
--- NOTE | 2019-01-22 19:56 | HEMO/ONC CONSULTATION ---
DATE: 01/22/2019 REQUESTING: Hospitalist service. REASON FOR CONSULTATION: Pancreatic cancer, patient known. HISTORY OF PRESENT ILLNESS: Ms Koroma is a 63-year-old female who is known to us as we are currently treating her for metastatic pancreatic cancer. She is currently receiving Gemzar and Abraxane chemotherapy through our office. She was actually evaluated by us on 01/16/2019. At that time, she had some chest congestion. We had recently done a CT chest, abdomen, and pelvis for restaging, and it did show her to have some infiltrates. We started her on p.o. Levaquin on 01/16/2019. She contacted our office on 01/21/2019, complaining of increased weakness, continued coughing and shortness of breath. She was advised to go to the emergency department. It looks like she was evaluated in the emergency department and was found to have pneumonia as well as oral thrush. She has now been admitted for further evaluation and treatment. PAST MEDICAL HISTORY: 1. Metastatic pancreatic cancer, currently on chemotherapy with Abraxane and Gemzar. She is actually due for her next dose today. 2. Anxiety. 3. Hypertension. 4. COPD. 5. Bilateral lower extremity DVTs, currently on Xarelto. SURGICAL HISTORY: 1. Back surgery in 1998. 2. Ectopic resection in 1987. 3. Ankle fix on the right. SOCIAL HISTORY: The patient smokes about 1 pack of cigarettes per day for the last 30 years, but quit 10/27/2018. She also previously drank about 3 shots of alcohol and 1 beer per day, but quit approximately 3 to 4 months ago. She has a very supportive family. FAMILY HISTORY: There is no family history of cancer. REVIEW OF SYSTEMS: A 12 point review of systems has been completed and is negative except for what is expressed in the HPI. PHYSICAL EXAMINATION: Vital Signs: Temperature 97.8 degrees, heart rate 95, respirations 18, blood pressure 131/66, O2 saturation 97% on room air. General: This is a thin, female lying in her hospital bed in no acute distress today. Head: Normocephalic, atraumatic. Eyes: Pupils equal, round, and reactive. Ears, Nose, Throat, Neck, Mouth: Oral mucosa has thrush. Gross auditory acuity is intact. Cardiovascular: S1, S2 heard. Regular rate and rhythm. Respiratory: Coarse breath sounds throughout. Faint wheezing noted. Gastrointestinal: Abdomen is soft with positive bowel sounds. Musculoskeletal: No bony abnormalities noted. Extremities: No pedal edema noted. Neurologic: Patient is alert and oriented with no focal motor deficits at this time. LABS AND STUDIES: White blood cells today are 3.52, hemoglobin 7.2, hematocrit 21.8, platelet count 185,000. Sodium 136, potassium 4.6 chloride 104, CO2 21, BUN 13, creatinine 0.7, glucose 238. Chest x-ray shows interval development of vague ground glass opacities in the right lower lung zone, suspicious for developing pneumonia. ASSESSMENT AND PLAN: 1. Metastatic pancreatic cancer. Patient is currently receiving chemotherapy with Gemzar and Abraxane. Her last dose was on 01/17/2019. We are holding treatment while the patient is in the hospital. 2. Pneumonia. Continue treatment per the primary team. She is currently receiving intravenous antibiotics as well as intravenous steroids and breathing treatments. Continue oxygen supplementation too as needed. 3. Oral thrush. Continue fluconazole. 4. Bilateral lower extremity deep venous thromboses previously. She needs to continue on anticoagulation with Xarelto. She was previously receiving Xarelto 20 mg daily, and we will continue that while she is in the hospital. Thank you for consulting us and allowing us to participate in Ms. Koroma's care while she is at [facility]. We will continue to follow along and adjust our treatment plan per her hospital course. Dictated by SHREE Baeza for Krissy Carrero MD cc: Krissy Carrero MD I have seen and examined the patient and the above note reflects my history, physical examination, assessment and plan. Krissy LUJAN
[2019-01-22] MEDS: LACTULOSE PO SCH (20:26)
[2019-01-22] MEDS ORDERED: DIFLUCAN 100 MG/NS 100 MG/50 ML IVPB IV SCH (23:30)
[2019-01-23] MEDS: LEVAQUIN 750 MG/D5W 750 MG/150 ML IVPB IV SCH (00:20)
[2019-01-23] MEDS: ZOSYN 3.375 GM in NS 50 ML IV SCH ×4 (05:27→22:52)
[2019-01-23] MEDS: DUONEB (A & A) INH SCH ×4 (05:46→22:05)
[2019-01-23] MEDS: XANAX PO SCH ×2 (08:37→20:46)
[2019-01-23] MEDS: NS 1,000 ML IV SCH ×4 (08:37→23:59)
[2019-01-23] MEDS: NICODERM PATCH TD SCH (08:37)
[2019-01-23] MEDS: NEURONTIN PO SCH ×2 (08:37→20:46)
[2019-01-23] MEDS: LACTULOSE PO SCH ×2 (08:43→20:45)
--- NOTE | 2019-01-23 13:59 | PROGRESS NOTE ---
DATE: 01/23/2019 SUBJECTIVE: Ms. Koroma does feel better. Feels like she is moving air little easier. Cough is a little looser. OBJECTIVE: Vital signs: Temperature 97.6 degrees, pulse 113, respirations 16, blood pressure 152/89. HEENT: Pupils are equal and round. Lungs: Clear in all lung keyes. Cardiovascular: Regular rhythm and rate without murmur or S3. Abdomen: Soft. Skin: Warm and dry. Genitourinary: Urine output 1200 mL. ASSESSMENT AND PLAN: 1. Right lower lobe pneumonia. 2. Chronic obstructive pulmonary disease exacerbation. 3. Oral and possible esophageal thrush. 4. Anemia. 5. Hypotension which is improved. 6. History of pancreatic cancer. 7. Recently had a fractured jaw. Aware. 8. Tobacco use. We have discussed the importance of tobacco cessation. 9. Complains of some constipation. I tried her on lactulose and I will add MiraLAX twice a day, and she has milk of magnesia as needed. REVIEW OF ORDERS: She is on Levaquin 750 mg IV q.24 hours, nicotine patch 21 mg a day, normal saline at 175 mL an hour, piperacillin 3.375 g IV q.6, fluconazole 200 mg, she got 1 dose. cc: Guero Parks MD
[2019-01-23] MEDS: XARELTO PO SCH (18:33)
[2019-01-23] MEDS: MIRALAX PO SCH (18:37)
[2019-01-23] MEDS: ULTRAM PO PRN (20:45)
[2019-01-23] MEDS ORDERED: DULCOLAX PR ONE (23:43)
[2019-01-23] MEDS: ZOFRAN IV PRN (23:58)
[2019-01-24] MEDS: LEVAQUIN 750 MG/D5W 750 MG/150 ML IVPB IV SCH (00:20)
[2019-01-24] MEDS: MIRALAX PO SCH ×3 (03:08→21:46)
[2019-01-24] MEDS: DUONEB (A & A) INH SCH ×4 (05:51→21:23)
[2019-01-24] MEDS: NS 1,000 ML IV SCH ×4 (06:09→21:44)
[2019-01-24] MEDS: ZOSYN 3.375 GM in NS 50 ML IV SCH ×3 (06:09→17:36)
[2019-01-24] MEDS: XANAX PO SCH ×2 (10:31→21:44)
[2019-01-24] MEDS: NICODERM PATCH TD SCH (10:31)
[2019-01-24] MEDS: NEURONTIN PO SCH ×2 (10:32→21:43)
[2019-01-24] MEDS: LACTULOSE PO SCH ×2 (10:32→21:45)
[2019-01-24] MEDS ORDERED: TUCKS HEMORRHOIDAL OINTMENT PR PRN (13:50)
[2019-01-24] MEDS ORDERED: FLEET ENEMA PR ONE (13:56)
[2019-01-24] MEDS ORDERED: GOLYTELY PO ONE (14:07)
[2019-01-24] MEDS ORDERED: PREPARATION H OINT PR PRN (14:55)
[2019-01-24] MEDS: XARELTO PO SCH (17:36)
--- NOTE | 2019-01-24 17:40 | PROGRESS NOTE ---
DATE: 01/24/2019 SUBJECTIVE: Ms. Koroma has been constipated and she has some impaction down there. Hemorrhoids are giving her trouble. Her breathing is better overall, but she just is miserable with the constipation. We are going to try some enemas and I am going to give her a little bit of Colyte and see if we can get her bowels to move and get rid of the impaction. OBJECTIVE: Vital signs: Temperature 97.8 degrees, pulse 103, respirations 16, blood pressure 119/67. HEENT: Pupils are equal and round. Lungs: Clear in all lung keyes. Cardiovascular: Regular rhythm and rate without murmur or S3. Abdomen: Soft. Skin: Warm and dry. Urine output 600 mL. ASSESSMENT AND PLAN: 1. Right lower lobe pneumonia, better. 2. Chronic obstructive pulmonary disease exacerbation with pneumonia. 3. Oral and possible esophageal thrush, which is improved. 4. Anemia. 5. Hypotension, which is improved. 6. History of pancreatic cancer. 7. Recently had a jaw fracture. 8. Tobacco use. I have discussed the importance of tobacco cessation. 9. Constipation and impaction. We will try some enemas and try some Colyte from above to see if we can get a little bit relief. 10. She was treated for a possible urinary tract infection with Levaquin and I am going to switch her to nitrofurantoin since the cultures grew back Staphylococcus epidermis. Actually it was less than 10,000 colonies, so I am going to leave that alone. cc: Guero Parks MD
[2019-01-24] MEDS: ULTRAM PO PRN (21:43)
[2019-01-25] MEDS: ZOSYN 3.375 GM in NS 50 ML IV SCH ×5 (00:44→23:39)
[2019-01-25] MEDS: LEVAQUIN 750 MG/D5W 750 MG/150 ML IVPB IV SCH ×2 (00:44→23:39)
[2019-01-25] MEDS: NS 1,000 ML IV SCH ×6 (02:55→20:37)
[2019-01-25] MEDS: DUONEB (A & A) INH SCH ×4 (03:27→23:01)
[2019-01-25] MEDS: ULTRAM PO PRN ×2 (10:20→20:41)
[2019-01-25] MEDS: XANAX PO SCH ×2 (10:20→20:36)
[2019-01-25] MEDS: NICODERM PATCH TD SCH (10:20)
[2019-01-25] MEDS: LACTULOSE PO SCH ×2 (10:22→20:36)
[2019-01-25] MEDS: MIRALAX PO SCH ×2 (10:22→20:36)
[2019-01-25] MEDS: NEURONTIN PO SCH ×2 (10:22→20:36)
--- NOTE | 2019-01-25 14:30 | PROGRESS NOTE ---
DATE: 01/25/2019 SUBJECTIVE: Ms. Koroma is feeling better. She did have a bowel movement finally, she is eating. Breathing seems to be comfortable. OBJECTIVE: Vital Signs: She remains afebrile, temperature 98.6 degrees, pulse 107, respirations 15, blood pressure 128/70. HEENT: Pupils are equal and round. Lungs: Clear in all lung keyes. Cardiovascular: Regular rhythm and rate without murmur or S3. Urine output is 5200 mL. ASSESSMENT AND PLAN: 1. Right lower lobe pneumonia, better. 2. Chronic obstructive pulmonary disease exacerbation with pneumonia. 3. Oral possible esophageal thrush is improved. 4. Anemia. 5. Hypertension. 6. History of pancreatic cancer. 7. History of recent jaw fracture. 8. Tobacco use. 9. Constipation with impaction, obstipation, and that is better. We gave her some Colyte and it finally opened up. 10. Possible urinary tract infection, so continue present antibiotics. Clinically better. Her plan is to go home with home health. She is getting Duonebs q.6h., Xanax 1 mg b.i.d., Neurontin 300 mg b.i.d., lactulose 30 mL b.i.d., Levaquin 750 mg IV q.24 hours, nicotine patch 21 mg daily, getting normal saline at 175 mL an hour, Xarelto 20 mg a day, Ultram 50 mg q.4 hours p.r.n., Zosyn 3.375 g IV q.6. REVIEW OF LABS: Hematocrit 21, hemoglobin 7.2. On 01/22/2019, sodium 136, potassium 4.6, chloride 104, BUN 13, creatinine 0.7. Folate level is low. cc: Guero Parks MD
[2019-01-25] MEDS: XARELTO PO SCH (17:07)
[2019-01-25] MEDS: FOLIC ACID PO SCH ×2 (17:11→20:36)
[2019-01-26] MEDS: NS 1,000 ML IV SCH ×5 (02:22→21:52)
[2019-01-26] MEDS: DUONEB (A & A) INH SCH ×4 (04:00→21:45)
[2019-01-26] MEDS: ZOSYN 3.375 GM in NS 50 ML IV SCH ×3 (05:45→18:03)
[2019-01-26] MEDS: XANAX PO SCH ×2 (10:02→21:48)
[2019-01-26] MEDS: NEURONTIN PO SCH ×2 (10:02→21:48)
[2019-01-26] MEDS: LACTULOSE PO SCH ×2 (10:03→21:48)
[2019-01-26] MEDS: MIRALAX PO SCH ×2 (10:03→21:48)
[2019-01-26] MEDS: FOLIC ACID PO SCH ×2 (10:03→21:48)
[2019-01-26] MEDS: NICODERM PATCH TD SCH (10:03)
--- NOTE | 2019-01-26 10:26 | PROGRESS NOTE ---
DATE: 01/26/2019 SUBJECTIVE: Ms. Koroma is feeling better. Her bowels have been moving. She is eating better. Breathing is more comfortable. OBJECTIVE: Vital Signs: Temperature 98.7 degrees, pulse 90, respirations 18, blood pressure 127/81. Eyes: Pupils are equal and round. Lungs: Lungs are clear in all lung keyes. Cardiovascular exam: Regular rhythm and rate without murmur or S3. : Urine output is 1900 mL. ASSESSMENT AND PLAN: 1. Right lower lobe pneumonia is improved. 2. Chronic obstructive pulmonary disease exacerbation with pneumonia. 3. Oral possible esophageal thrush. 4. Anemia. 5. Hypertension. 6. History of pancreatic cancer. 7. History of recent jaw fracture. 8. History of tobacco use. 9. Constipation impaction, which is improved. 10. Possible urinary tract infection, seems to be improving. Continue current treatment Hopefully can stop antibiotics and go home soon. I am going to repeat another chest x-ray in the morning. Actually, I may repeat that on Monday morning. cc: Guero Parks MD
[2019-01-26] MEDS: XARELTO PO SCH (16:38)
[2019-01-27] MEDS: ZOSYN 3.375 GM in NS 50 ML IV SCH ×4 (00:07→18:22)
[2019-01-27] MEDS: DUONEB (A & A) INH SCH ×4 (03:46→22:22)
[2019-01-27] MEDS: NS 1,000 ML IV SCH ×3 (03:47→14:18)
[2019-01-27] MEDS: LEVAQUIN 750 MG/D5W 750 MG/150 ML IVPB IV SCH (03:47)
[2019-01-27 07:10] LABS: BASO# 0.01 X1000 (0.0-0.2); BASO% 0.2 % (0.0-0.8); EOS# 0.11 X1000 (0.0-0.7); EOS% 1.9 % (0.0-10.0); HEMATOCRIT 28.2 % (37.0-47.0); HEMOGLOBIN 9.6 g/dL (12.0-16.0); IMM GRAN# 0.07 X1000 (0.0-0.04); IMM GRAN% 1.2 % (0.0-0.5); LYMPH% 17.3 % (20.5-51.1); MCH 32.8 PG (27-31); MCV 96.2 FL (81-99); MONO# 1.13 X1000 (0.11-0.59); MONO% 19.6 % (1.7-9.3); NEUT# 3.45 X1000 (1.4-6.5); NEUT% 59.8 % (42.2-75.2); PLT 104 X1000 (130-400); RBC 2.93 XMIL (4.2-5.4); WBC 5.77 X1000 (4.8-10.8)
[2019-01-27 07:28] LABS: ESTIMATED GFR > 60
[2019-01-27 07:43] LABS: AGAP 10; BUN 2 mg/dL (8-22); CALCIUM 7.7 mg/dL (8.8-10.2); CHLORIDE 107 mmol/L (98-107); COSMO 275; CREATININE 0.5 mg/dL (0.5-0.9); GLUCOSE 129 mg/dL (70-104); MAGNESIUM 1.1 mg/dL (1.5-2.7); POTASSIUM 2.5 mmol/L (3.5-5.1); SODIUM 139 mmol/L (136-145); TCO2 22 mmol/L (25-35)
--- NOTE | 2019-01-27 08:35 | Diag Imaging Result Doc PS360 ---
EXAM: CHEST-2 VIEWS HISTORY: pneumonia TECHNIQUE: Chest two views COMPARISON: 01/21/2019 FINDINGS: Interval development of small bilateral pleural effusions. No cardiomegaly. There is basilar atelectasis and there may be underlying infiltrates. No change in the right jugular portacatheter. No pneumothorax. IMPRESSION: Interval development of small pleural effusions with basilar atelectasis and possibly underlying infiltrates. Electronically signed by Christopher Felix 01/27/2019 8:32 AM
[2019-01-27] MEDS ORDERED: POTASSIUM CHLORIDE 40 MEQ/SWI 40 MEQ/100 ML IVPB IV ONE (08:55)
[2019-01-27] MEDS: LACTULOSE PO SCH ×3 (10:30→22:19)
[2019-01-27] MEDS: FOLIC ACID PO SCH ×2 (10:30→22:19)
[2019-01-27] MEDS: NEURONTIN PO SCH ×2 (10:30→22:19)
[2019-01-27] MEDS: MIRALAX PO SCH ×2 (10:30→22:16)
[2019-01-27] MEDS: XANAX PO SCH ×2 (10:31→22:19)
[2019-01-27] MEDS: NICODERM PATCH TD SCH (10:31)
--- NOTE | 2019-01-27 14:47 | PROGRESS NOTE ---
DATE: 01/27/2019 SUBJECTIVE: Ms. Koroma is feeling better. She has a little more swelling in her feet. Her bowels are moving. She says she is still pretty weak, would like to go home. She would like to be able to walk a little better and a little further so continue her work on her ambulation and her strength. OBJECTIVE: Temperature 98.0 degrees, pulse 106, respirations 16, blood pressure 142/71. Pupils are equal and round. Lungs are clear in all lung keyes. Cardiovascular Examination: Regular rhythm and rate without murmur or S3. Urine output was a little over 5 L, almost 6 L of urine output. Chest x-ray from today, this morning, interval development of small pleural effusions, bibasilar atelectasis. ASSESSMENT AND PLAN: 1. Right lower lobe pneumonia, improved. 2. Chronic obstructive pulmonary disease exacerbation with pneumonia, improving. 3. Oral and possible esophageal thrush, better. 4. Anemia. 5. Hypertension. 6. History of pancreatic cancer. 7. History of recent jaw fracture. 8. History of tobacco use. 9. Constipation, impaction, which is improved. 10. Underlying urinary tract infection, treating. 11. She has got a little more pedal edema, some pleural effusions so may see if we can get some fluids off. I am going to cut her fluids down. We will stop her fluids. I am going to give her a little bit of Lasix to see if we can get some of her fluids down. cc: Guero Parks MD
[2019-01-27] MEDS: LASIX IV SCH (15:18)
[2019-01-27] MEDS: XARELTO PO SCH (18:22)
[2019-01-27] MEDS: ULTRAM PO PRN (22:19)
[2019-01-28] MEDS: ZOSYN 3.375 GM in NS 50 ML IV SCH ×4 (00:38→18:09)
[2019-01-28] MEDS: LASIX IV SCH ×2 (03:43→14:32)
[2019-01-28] MEDS: LEVAQUIN 750 MG/D5W 750 MG/150 ML IVPB IV SCH (03:43)
[2019-01-28] MEDS: DUONEB (A & A) INH SCH ×4 (04:00→21:00)
[2019-01-28] MEDS: LACTULOSE PO SCH ×2 (09:10→22:40)
[2019-01-28] MEDS: MIRALAX PO SCH ×2 (09:10→22:40)
[2019-01-28] MEDS: NEURONTIN PO SCH ×2 (09:11→21:20)
[2019-01-28] MEDS: XANAX PO SCH ×2 (09:11→21:20)
[2019-01-28] MEDS: FOLIC ACID PO SCH ×2 (09:11→21:20)
[2019-01-28] MEDS: NICODERM PATCH TD SCH (09:11)
--- NOTE | 2019-01-28 14:42 | PROGRESS NOTE ---
DATE: 01/28/2019 SUBJECTIVE: Ms. Koroma feels better, breathing comfortably. She has been eating. Her bowels are moving good. Comfortable. OBJECTIVE: Vital signs: Temp 97.4 degrees, pulse 98, respirations 19, blood pressure 113/64. HEENT: Pupils are equal and round. Lungs: Clear in all lung keyes. Cardiovascular: Regular rhythm and rate without murmur or S3. Urine output was 5000 mL. IMAGING: Chest x-ray from yesterday: Interval improvement, small pleural effusions, basilar atelectasis, possible underlying infiltrates. ASSESSMENT: 1. Right lower lobe pneumonia, improved. 2. Chronic obstructive pulmonary disease exacerbation with pneumonia, improving. 3. Oral possible esophageal thrush. 4. Anemia. 5. Hypertension. 6. History of pancreatic cancer. 7. History of recent jaw fracture. 8. History of tobacco use. 9. Constipation. 10. Underlying urinary tract infection, treating. 11. He has had a little more pedal edema which seems to have gone down a little bit. PLAN: Her aim is to try and get her home with home health. We will continue current treatment. Underlying, she has metastatic pancreatic cancer. She is currently receiving treatment with Gemzar and Abraxane. Will continue treatment when we can as an outpatient. cc: Guero Parks MD
[2019-01-28] MEDS: XARELTO PO SCH (17:24)
[2019-01-28] MEDS: ZOFRAN IV PRN (17:34)
[2019-01-28] MEDS: ULTRAM PO PRN (17:34)
[2019-01-29] MEDS: LEVAQUIN 750 MG/D5W 750 MG/150 ML IVPB IV SCH (03:30)
[2019-01-29] MEDS: LASIX IV SCH ×2 (03:30→17:15)
[2019-01-29] MEDS: DUONEB (A & A) INH SCH ×4 (03:37→21:19)
[2019-01-29] MEDS: ZOSYN 3.375 GM in NS 50 ML IV SCH ×5 (06:18→17:15)
[2019-01-29] MEDS: XANAX PO SCH ×2 (11:13→20:57)
[2019-01-29] MEDS: NEURONTIN PO SCH ×2 (11:13→20:57)
[2019-01-29] MEDS: NICODERM PATCH TD SCH (11:13)
[2019-01-29] MEDS: MIRALAX PO SCH ×2 (11:13→20:56)
[2019-01-29] MEDS: LACTULOSE PO SCH ×2 (11:13→20:56)
[2019-01-29] MEDS: FOLIC ACID PO SCH ×2 (11:13→20:57)
[2019-01-29] MEDS: XARELTO PO SCH (17:15)
--- NOTE | 2019-01-29 17:48 | PROGRESS NOTE ---
DATE: 01/29/2019 SUBJECTIVE: Ms. Koroma is doing better. She is a little stronger. Her bowels are moving. Breathing more comfortably. Eating well. OBJECTIVE: Temperature 98 degrees, pulse 92, respirations 16, blood pressure 97/47. Pupils are equal and round. Lungs are clear in all lung keyes. Cardiovascular: Regular rhythm and rate without murmur or S3. Abdomen is soft. Skin is warm and dry. ASSESSMENT AND PLAN: 1. Right lower lobe pneumonia, improved. 2. Chronic obstructive pulmonary disease exacerbation with pneumonia, improving. 3. Oral and possible esophageal thrush, which has been treated. 4. Anemia. 5. Hypertension. 6. History of pancreatic cancer. 7. History of recent jaw fracture. 8. History of tobacco use. 9. Constipation. 10. Underlying urinary tract infection, which has been treated. 11. Constipation and that has resolved. 12. General weakness and deconditioning. She wants to try and go home so we are going to continue physical therapy and see if we can get her home soon. cc: Guero Parks MD
[2019-01-29] MEDS: ULTRAM PO PRN (20:56)
[2019-01-30] MEDS: ZOSYN 3.375 GM in NS 50 ML IV SCH ×4 (00:42→17:39)
[2019-01-30] MEDS: LEVAQUIN 750 MG/D5W 750 MG/150 ML IVPB IV SCH (03:20)
[2019-01-30] MEDS: DUONEB (A & A) INH SCH ×4 (04:52→22:48)
[2019-01-30] MEDS: LASIX IV SCH ×3 (05:41→17:42)
[2019-01-30] MEDS: FOLIC ACID PO SCH ×2 (08:51→21:40)
[2019-01-30] MEDS: XANAX PO SCH ×2 (08:51→21:40)
[2019-01-30] MEDS: NEURONTIN PO SCH ×2 (08:51→21:40)
[2019-01-30] MEDS: NICODERM PATCH TD SCH (08:51)
[2019-01-30] MEDS: MIRALAX PO SCH ×2 (08:53→21:41)
[2019-01-30] MEDS: LACTULOSE PO SCH ×2 (08:53→21:41)
--- NOTE | 2019-01-30 13:48 | PROGRESS NOTE ---
DATE: 01/30/2019 SUBJECTIVE: Ms. Koroma is feeling better. She is able to ambulate several steps down the woodruff, so she was encouraged by that. She remains afebrile. OBJECTIVE: Vital Signs: Temperature 97.6 degrees, pulse 96, respirations 16, blood pressure 92/45. Eyes: Pupils are equal and round. Lungs: Lungs are clear in all lung keyes. Cardiovascular exam: Regular rhythm and rate without murmur or S3. : Urine output was about 600 mL. ASSESSMENT AND PLAN: 1. Right lower lobe pneumonia which has been well treated. 2. Chronic obstructive pulmonary disease exacerbation with pneumonia, improved. 3. Oral and possible esophageal thrush has been treated. 4. Anemia, stable. 5. Hypertension. 6. History of pancreatic cancer. 7. History of recent jaw fracture. 8. History of tobacco use. 9. Constipation. 10. Underlying urinary tract infection has been treated. 11. Constipation that is resolved. 12. Weakness and deconditioning. Continue current physical therapy. Making good progress. She would like to go home. Like to set up home health nursing and see if we can get that set up. Review of her orders: I do not see any change. cc: Guero Parks MD
[2019-01-30] MEDS: XARELTO PO SCH (17:40)
[2019-01-30] MEDS ORDERED: NS 1,000 ML IV ONE (23:52)
[2019-01-31] MEDS ORDERED: NS 1,000 ML ONE (00:01)
[2019-01-31] MEDS: ZOSYN 3.375 GM in NS 50 ML IV SCH (00:02)
[2019-01-31 00:51] LABS: HEMATOCRIT 28.3 % (37.0-47.0); HEMOGLOBIN 9.7 g/dL (12.0-16.0)
[2019-01-31] MEDS ORDERED: LANOXIN IV ONE (00:59)
[2019-01-31] MEDS ORDERED: CORDARONE 360 MG/D5W 360 MG/200 ML IV.SOLN IV ONE (01:00)
[2019-01-31] MEDS ORDERED: LEVOPHED 8 MG in D5 1/2 NS 250 ML IV SCH (01:00)
[2019-01-31] MEDS ORDERED: KLOR-CON PO ONE ×2 (01:02→16:38)
[2019-01-31] MEDS ORDERED: MAGNESIUM SULFATE 2 GM/S.W.I. 2 GM/50 ML IVPB IV ONE ×2 (01:02→18:40)
[2019-01-31] MEDS: ZOFRAN IV PRN (01:04)
[2019-01-31] MEDS: LEVOPHED 8 MG in D5 1/2 NS 250 ML IV SCH ×2 (01:06→13:44)
[2019-01-31 01:13] LABS: BASO# 0.03 X1000 (0.0-0.2); BASO% 0.7 % (0.0-0.8); EOS# 0.09 X1000 (0.0-0.7); HEMATOCRIT 28.4 % (37.0-47.0); HEMOGLOBIN 9.7 g/dL (12.0-16.0); IMM GRAN# 0.04 X1000 (0.0-0.04); IMM GRAN% 0.9 % (0.0-0.5); LYMPH# 1.17 X1000 (1.2-3.4); LYMPH% 25.8 % (20.5-51.1); MCH 33.6 PG (27-31); MCHC 34.2 g/dL (33-37); MCV 98.3 FL (81-99); MONO# 1.83 X1000 (0.11-0.59); MONO% 40.3 % (1.7-9.3); MPV 12.8 FL (7.4-10.4); NEUT# 1.38 X1000 (1.4-6.5); NEUT% 30.3 % (42.2-75.2); PLT 111 X1000 (130-400); RBC 2.89 XMIL (4.2-5.4); RDW 22.4 % (11.5-14.5); WBC 4.54 X1000 (4.8-10.8)
[2019-01-31] MEDS ORDERED: POTASSIUM CHLORIDE 40 MEQ/SWI 40 MEQ/100 ML IVPB IV ONE (01:51)
[2019-01-31] MEDS: POTASSIUM CHLORIDE 40 MEQ/SWI 40 MEQ/100 ML IVPB IV SCH ×2 (02:03→06:20)
[2019-01-31] MEDS: DUONEB (A & A) INH SCH ×3 (04:00→21:25)
[2019-01-31] MEDS: LASIX IV SCH (05:25)
[2019-01-31] MEDS: LEVAQUIN 750 MG/D5W 750 MG/150 ML IVPB IV SCH (05:25)
[2019-01-31] MEDS ORDERED: CORDARONE 540 MG in D5W 289.2 ML IV ONE (07:00)
--- NOTE | 2019-01-31 07:24 | EKG Report ---
Test Performed on : 01/31/2019 00:46:47 AM Test Reason : tachy Blood Pressure : / mmHG Vent. Rate : 157 BPM Atrial Rate : 105 BPM P-R Int : 000 ms QRS Dur : 116 ms QT Int : 316 ms P-R-T Axes : 000 052 225 degrees QTc Int : 510 ms Atrial fibrillation. with rapid ventricular response. with premature ventricular or aberrantly conduc ashley complexes. Marked ST abnormality, possible inferior subendocardial injury Marked ST abnormality, possible anterolateral subendocardial injury Abnormal ECG When compared with ECG of 07-MAY-2018 22:16, Significant changes have occurred Confirmed by Joseph MAN, Braxton Flowers ([id number]) on 01/31/2019 6:38:53 PM
--- NOTE | 2019-01-31 08:12 | EKG Report ---
Test Performed on : 01/31/2019 02:13:35 AM Test Reason : AFIB Blood Pressure : / mmHG Vent. Rate : 106 BPM Atrial Rate : 106 BPM P-R Int : 136 ms QRS Dur : 088 ms QT Int : 322 ms P-R-T Axes : 057 046 264 degrees QTc Int : 427 ms Sinus tachycardia. with occasional premature ventricular complexes. Possible Left atrial enlargement ST & T wave abnormality, consider inferolateral ischemia Abnormal ECG No previous ECGs available Confirmed by Joseph MAN, Braxton Flowers ([id number]) on 01/31/2019 6:38:58 PM
[2019-01-31] MEDS: XANAX PO SCH ×2 (09:07→20:00)
[2019-01-31] MEDS: LEVAQUIN PO SCH (09:07)
[2019-01-31] MEDS: FOLIC ACID PO SCH ×2 (09:07→19:59)
[2019-01-31] MEDS: NEURONTIN PO SCH ×2 (09:07→20:00)
[2019-01-31] MEDS: NICODERM PATCH TD SCH (09:20)
--- NOTE | 2019-01-31 09:34 | PROGRESS NOTE ---
DATE: 01/31/2019 SUBJECTIVE: Mrs. Koroma Is feeling better. She has an episode of atrial fibrillation and RVR during the night. Her blood pressure dropped and she has been placed on pressors, which we will try to stop slowly. She is already on anticoagulation. I do believe this is related to her severe hypokalemia and hypomagnesemia. She is getting magnesium and potassium IV. I will recheck her potassium and magnesium today in the afternoon at 4 p.m. again. Cardiology has been consulted. OBJECTIVE: Vital Signs: Temperature 97.8 degrees, pulse 85, respiratory rate 22, blood pressure 121/81, oxygen saturation 100% on 6 L of nasal cannula. HEENT: Head normocephalic no trauma, PERRLA. Neck: Supple. No JVD. No masses. Central trachea. Chest: Coarse breath sounds at the bases. Cardiovascular: Regular rate and rhythm. Abdomen: Soft, slightly to moderately distended. No pain to palpation. Positive bowel sounds. Extremities: Trace edema, no clubbing, no cyanosis. Neurological: The patient is alert and oriented x3. No focal neurological deficits. LABORATORY: WBC 4.5, hemoglobin 9.7, hematocrit 28.4, platelets 111,000. Pending BMP. ASSESSMENT AND PLAN: 1. Right lower lobe pneumonia, I will stop the Zosyn due to her thrombocytopenia and I will continue with levofloxacin p.o., today is day #10 of treatment. She has not been complaining of fever or chills. I will get an x-ray tomorrow. She is not on oxygen at home, and right now she is on 6 L. 2. Hypoxemic respiratory failure. She is still on oxygen, around 6 L, likely secondary to pneumonia. We will continue to monitor. We will try to decrease the amount of oxygen as well. 3. Severe hypokalemia. She is getting potassium IV. Also her magnesium is low. We will replace both. 4. Hypomagnesemia as above. 5. Atrial fibrillation with rapid ventricular response. She received a dose of digoxin and amiodarone and she has been placed on amiodarone drip. Because of her low pressure low blood pressure also she has been placed on pressors. 6. Anemia, stable. 7. Hypertension. Actually her blood pressure has been stable, with an episode of low blood pressure during the night. She has been on pressors. We will monitor. 8. History of pancreatic cancer followed by Dr. Carrero. 9. History of recent jaw fracture, aware. 10. History of tobacco use. This patient has been highly advised against tobacco use. I will continue with daily cessation education, nicotine patch. 11. Constipation resolved. This patient has been requested to be placed back on her home medications. We will try to call the family member to find out which one she is on at home. For now I will stop the lactulose and MiraLAX. We will continue with as needed, milk of magnesia. 12. Underlying urinary tract infection aware, treated. 13. Weakness and physical deconditioning, continue physical therapy. It looks like she is making good progress. 14. Thrombocytopenia, probably this is related to medication. I will stop the Zosyn. I will continue with the levofloxacin p.o. CRITICAL CARE TIME: 45 minutes. cc: Josh Burgos MD
[2019-01-31] MEDS: COLACE PO SCH (09:56)
[2019-01-31 11:31] LABS: AGAP 11; BUN 4 mg/dL (8-22); CALCIUM 7.6 mg/dL (8.8-10.2); CHLORIDE 90 mmol/L (98-107); COSMO 282; CREATININE 0.5 mg/dL (0.5-0.9); ESTIMATED GFR > 60; GLUCOSE 168 mg/dL (70-104); POTASSIUM 2.6 mmol/L (3.5-5.1); SODIUM 141 mmol/L (136-145); TCO2 40 mmol/L (25-35)
--- NOTE | 2019-01-31 11:35 | CARDIOLOGY CONSULTATION ---
DATE: 01/31/2019 CHIEF COMPLAINT UPON PRESENTATION: Apparently cough, shortness of breath. HISTORY OF PRESENT ILLNESS: Ms Koroma is a 63-year-old female with a metastatic pancreatic cancer, currently being treated by Dr. Krissy Carrero with Gemzar and Abraxane. She was evaluated originally on the by their office with complaints of chest congestion. Over that time period, she was initiated on oral antibiotics but re-presented and at some point had a chest CT done which demonstrated some pulmonary infiltrates. She ultimately was admitted on the for pneumonia treatment. We were involved this morning when she had the onset of atrial fibrillation last night. She reported some shortness of breath occurring during that episode as well as a sensation of people being far away. She denied any overt pain symptoms or palpitations. She has had some intermittent nausea. PAST MEDICAL HISTORY: 1. Significant for pancreatic cancer as detailed above. 2. Hypertension. 3. COPD. 4. Bilateral lower extremity DVTs, currently on Xarelto therapy. SOCIAL HISTORY: She smokes 1 pack per day and has done so for the last 30 years until quitting in October. She previously drank alcohol but quit 3 to 4 months ago as well. FAMILY HISTORY: No previous histories of cancers. REVIEW OF SYSTEMS: A 10 system review of systems is negative except for those things mentioned in HPI. PHYSICAL EXAMINATION: Vital signs: She is afebrile. Her heart rate is 90. She is in sinus currently. Her blood pressure is 107/61. General: She is an ill-appearing white female, in no acute distress. HEENT: Oropharynx is moist. Poor dentition. Eye examination shows pink conjunctiva, white sclerae. Neck: No obvious thyromegaly or thyroid tenderness. Cardiovascular: She sounds to be in a regular rate and rhythm. She has no obvious murmurs. She has no S3. She has no lower extremity edema. Chest: Somewhat coarse breath sounds diffusely. She has no increased work of breathing. She had a poor inspiratory effort. Abdomen: Soft, nontender. She has no obvious organomegaly. Bowel sounds were intact. Skin: Warm and dry throughout. Neurological: She does not have any obvious lateralizing deficits but she is very sleepy and poorly cooperative with the examination. Psychiatric: She does seem to have a somewhat depressed affect and again, is quite sleepy. DIAGNOSTIC DATA: Her EKG interpreted by me originally on January 31 at 12:46 a.m., she had atrial fibrillation with a rate of 157 beats per minute. She had diffuse ST depression in basically the inferior limb leads, the chest leads as well as the lateral limb leads. Her subsequent EKG which was reviewed by me, this was done at 2:13 a.m., shows sinus rhythm, essential resolution of all the previous ST depression. Her most recent chest x-ray on the demonstrates interval development of small pleural effusions with basilar atelectasis and possible underlying infiltrates. LABORATORY DATA: Her lab data demonstrates a white count of 4.5, hematocrit of 28, platelet count of 111,000. Her potassium yesterday was 1.9. She has no new chemistry data. I do not see where she has had a TSH. ASSESSMENT: Ms. Koroma is a 63-year-old female with metastatic pancreatic cancer with new onset atrial fibrillation. PLAN: We will check a TSH as well as an echocardiogram. She is on amiodarone infusion which I would agree with, and I would just plan on switching to oral amiodarone at 400 mg daily tomorrow. I have made arrangements for that. She is already on Xarelto, so we do not need to address anticoagulation at this time. Please contact us if we can be of further assistance. We will follow up on the test results. cc: Jaron Sandy MD
[2019-01-31] MEDS: XARELTO PO SCH (17:26)
[2019-01-31 18:08] LABS: AGAP 9; BUN 4 mg/dL (8-22); CALCIUM 7.8 mg/dL (8.8-10.2); CHLORIDE 89 mmol/L (98-107); COSMO 273; CREATININE 0.5 mg/dL (0.5-0.9); ESTIMATED GFR > 60; GLUCOSE 108 mg/dL (70-104); MAGNESIUM 1.1 mg/dL (1.5-2.7); SODIUM 138 mmol/L (136-145); TCO2 40 mmol/L (25-35)
--- NOTE | 2019-01-31 18:24 | ECHO REPORT ---
ORDER DATE: 01/31/2019 REQUESTING PHYSICIAN: Dr. Jaron Sandy. INDICATION: Paroxysmal atrial fibrillation. M-MODE MEASUREMENTS: Left ventricle end diastole: 4.6. Left ventricle end systole: 2.5. Posterior wall: 1.0. Interventricular septum: 1.0. Left atrium: 3.3. Aortic root: 2.8. SUMMARY OF 2-DIMENSIONAL IMAGIN. The study is of excellent quality. 2. Left ventricular systolic function is hyperdynamic. Visually, it appears to be on the order of 75%. By computer tracing, it is about 66%. There is no LVH. 3. There is a small pericardial effusion that is not causing any hemodynamic compromise. 4. The right ventricle is not dilated. 5. The pulmonic valve appears to be grossly normal. 6. The aortic valve has 3 cusps. They open normally. Color flow mapping unremarkable. 7. The mitral valve shows a mild degree of regurgitation. 8. Pulsed wave Doppler of mitral inflow is normal. 9. Tissue Doppler of septal and lateral mitral annulus averages 6 cm. 10.Pulmonary venous flow is normal. 11.There is no diastolic dysfunction. 12.The tricuspid valve shows a mild degree of regurgitation. Pulmonary pressure is estimated at 35 mmHg. 13.There is no evidence of mass. No thrombus. Clinical correlation recommended. cc: MD Jaron Pineda MD
[2019-01-31 18:33] LABS: POTASSIUM 2.3 mmol/L (3.5-5.1)
[2019-02-01] MEDS: DUONEB (A & A) INH SCH ×4 (03:24→21:00)
[2019-02-01 05:39] LABS: BASO# 0.05 X1000 (0.0-0.2); BASO% 0.8 % (0.0-0.8); EOS# 0.26 X1000 (0.0-0.7); HEMATOCRIT 29.1 % (37.0-47.0); HEMOGLOBIN 9.8 g/dL (12.0-16.0); IMM GRAN# 0.08 X1000 (0.0-0.04); IMM GRAN% 1.2 % (0.0-0.5); LYMPH# 1.42 X1000 (1.2-3.4); LYMPH% 22.1 % (20.5-51.1); MCH 33.4 PG (27-31); MCHC 33.7 g/dL (33-37); MCV 99.3 FL (81-99); MONO# 2.02 X1000 (0.11-0.59); MONO% 31.5 % (1.7-9.3); MPV 12.5 FL (7.4-10.4); NEUT# 2.59 X1000 (1.4-6.5); NEUT% 40.4 % (42.2-75.2); PLT 157 X1000 (130-400); RBC 2.93 XMIL (4.2-5.4); RDW 22.4 % (11.5-14.5); WBC 6.42 X1000 (4.8-10.8)
[2019-02-01 06:21] LABS: AGAP 9; BUN 4 mg/dL (8-22); CALCIUM 7.7 mg/dL (8.8-10.2); CHLORIDE 92 mmol/L (98-107); COSMO 279; CREATININE 0.7 mg/dL (0.5-0.9); ESTIMATED GFR > 60; GLUCOSE 120 mg/dL (70-104); MAGNESIUM 1.6 mg/dL (1.5-2.7); PHOSPHORUS 2.3 mg/dL (2.7-4.5); POTASSIUM 2.9 mmol/L (3.5-5.1); SODIUM 141 mmol/L (136-145); TCO2 40 mmol/L (25-35)
--- NOTE | 2019-02-01 07:11 | Diag Imaging Result Doc PS360 ---
EXAM: CHEST-PORTABLE 02/01/2019 HISTORY: dyspnea TECHNIQUE: AP portable at 0518 COMMENT: Compared to 01/27/2019 the pleural fluid collections have diminished. There is still perihilar opacity in the left lung as well as opacification and partial obscuration of the left hemidiaphragm. The right base is clearer than it was. IMPRESSION: Improved pleural effusions and pulmonary edema and/or pneumonia. Electronically signed by Foster Meza 02/01/2019 7:09 AM
[2019-02-01] MEDS ORDERED: POTASSIUM PHOSPHATE 30 MMOL in NS 250 ML IV ONE (07:30)
[2019-02-01 07:39] LABS: ANISOCYTOSIS 2+; BANDS 4 % (0-1); EOS 2 % (1-10); LYMPHS 24 % (21-51); MONO 18 % (1-9); SEGS 50 % (42-75)
[2019-02-01 07:40] LABS: HYPOCHROM 2+
[2019-02-01] MEDS: XANAX PO SCH ×2 (08:14→20:23)
[2019-02-01] MEDS: NICODERM PATCH TD SCH (08:15)
[2019-02-01] MEDS: NEURONTIN PO SCH ×2 (08:15→20:23)
[2019-02-01] MEDS: FOLIC ACID PO SCH ×2 (08:15→20:23)
[2019-02-01] MEDS: COLACE PO SCH (08:15)
[2019-02-01] MEDS: CORDARONE PO SCH (08:15)
[2019-02-01] MEDS: LEVAQUIN PO SCH (08:15)
[2019-02-01] MEDS ORDERED: KLOR-CON PO SCH (09:00)
[2019-02-01] MEDS ORDERED: MAGNESIUM SULFATE 2 GM/S.W.I. 2 GM/50 ML IVPB IV ONE (09:43)
--- NOTE | 2019-02-01 09:51 | PROGRESS NOTE ---
DATE: 02/01/2019 SUBJECTIVE: This patient is feeling better today. No more episodes of atrial fibrillation, rapid ventricular response. We are transitioning the amiodarone drip to p.o. Cardiology on board. Echocardiogram has been done and it looks fine. Her potassium level is still low and the phosphorus level is low as well, so I will replace both, I will check again a BMP, phosphorus, magnesium today at 4 p.m., TSH normal. OBJECTIVE: Vital Signs: Temperature 97.7 degrees, pulse 80, respiratory rate 19, blood pressure 87/49, oxygen saturation 90 on nasal cannula. HEENT: Head normocephalic no trauma. PERRLA. Neck: Supple, no JVD. Central trachea. Chest: Coarse breath sounds, mostly at the bases. Cardiovascular: Regular rate and rhythm. Abdomen: Soft, slightly to moderately distended. No pain to palpation. Positive bowel sounds. Extremities: Trace edema. No clubbing, no cyanosis. Neurological: This patient is alert and oriented x3. No focal neurological deficits. LABORATORY: WBC 6.4, hemoglobin 9.8, hematocrit 29.1, and platelets 157,000, sodium 141, potassium 2.9, chloride 92, bicarbonate 40, BUN 4, creatinine 0.7, glucose 120, calcium 7.7, phosphorus 2.3. TSH 1.07. ASSESSMENT AND PLAN: 1. Right lower lobe pneumonia, x-ray looks better compared with the previous one. I will continue with levofloxacin p.o., today is day #11 of treatment. She has not been complaining of fever or chills. We will continue to monitor. She is not on oxygen at home, right now she is on oxygen here. 2. Hypoxemic respiratory failure, likely secondary to pneumonia. We will continue to monitor. We will decrease the oxygen amount as tolerated. 3. Severe hypokalemia. The potassium level is better but still low. I will replace it. 4. Hypophosphatemia. I will replace the phosphorus. 5. Hypomagnesemia. Magnesium level is better. I will get a new magnesium level today in the afternoon. 6. Atrial fibrillation with rapid ventricular response. She is being followed by Cardiology Department. The amiodarone drip has been stopped. We are transitioning the treatment to p.o. We will continue with same management. Continue with anticoagulation. 7. Anemia stable. 8. Hypertension. We have stopped the pressors. The blood pressure has been more stable. We will continue with the same management. 9. History of pancreatic cancer followed by Dr. Carrero. 10. History of recent jaw fracture aware. 11. History of tobacco use. This patient has been highly advised against tobacco use. I will continue with daily cessation education. 12. Constipation, resolved, continue with Colace and as needed stool softeners. 13. Underlying urinary tract infection, treated. 14. Weakness and physical deconditioning. Continue physical therapy. It looks like she is making some progress. 15. Thrombocytopenia likely related to medications. Today the platelet count is better compared with yesterday, increased from 111 to 157. We will continue to monitor. CRITICAL CARE TIME: 30+ minutes. cc: Josh Burgos MD
[2019-02-01] MEDS: XARELTO PO SCH (16:23)
[2019-02-01 16:49] LABS: ESTIMATED GFR > 60
[2019-02-01 16:52] LABS: AGAP 8; BUN 5 mg/dL (8-22); CALCIUM 7.8 mg/dL (8.8-10.2); CHLORIDE 89 mmol/L (98-107); COSMO 266; CREATININE 0.5 mg/dL (0.5-0.9); GLUCOSE 101 mg/dL (70-104); MAGNESIUM 1.9 mg/dL (1.5-2.7); PHOSPHORUS 3.2 mg/dL (2.7-4.5); POTASSIUM 2.9 mmol/L (3.5-5.1); SODIUM 134 mmol/L (136-145); TCO2 37 mmol/L (25-35)
[2019-02-01] MEDS ORDERED: POTASSIUM CHLORIDE 40 MEQ/SWI 40 MEQ/100 ML IVPB IV ONE (17:36)
[2019-02-02] MEDS: DUONEB (A & A) INH SCH ×4 (03:05→21:17)
[2019-02-02 06:31] LABS: BASO# 0.06 X1000 (0.0-0.2); BASO% 0.9 % (0.0-0.8); EOS# 0.24 X1000 (0.0-0.7); EOS% 3.5 % (0.0-10.0); HEMATOCRIT 28.6 % (37.0-47.0); HEMOGLOBIN 9.4 g/dL (12.0-16.0); IMM GRAN# 0.07 X1000 (0.0-0.04); LYMPH# 1.52 X1000 (1.2-3.4); LYMPH% 22.3 % (20.5-51.1); MCH 32.9 PG (27-31); MCHC 32.9 g/dL (33-37); MONO# 1.46 X1000 (0.11-0.59); MONO% 21.4 % (1.7-9.3); MPV 12.7 FL (7.4-10.4); NEUT# 3.47 X1000 (1.4-6.5); NEUT% 50.9 % (42.2-75.2); PLT 148 X1000 (130-400); RBC 2.86 XMIL (4.2-5.4); RDW 22.6 % (11.5-14.5); WBC 6.82 X1000 (4.8-10.8)
[2019-02-02 06:35] LABS: AGAP 10; ALBUMIN 2.2 g/dL (3.5-5.0); ALKALINE PHOSPHATASE 177 U/L (32-104); BUN 6 mg/dL (8-22); CALCIUM 8.1 mg/dL (8.8-10.2); CHLORIDE 94 mmol/L (98-107); COSMO 271; CREATININE 0.5 mg/dL (0.5-0.9); ESTIMATED GFR > 60; GLUCOSE 92 mg/dL (70-104); GOT 20 U/L (10-30); GPT 5 U/L (10-36); MAGNESIUM 1.6 mg/dL (1.5-2.7); PHOSPHORUS 2.9 mg/dL (2.7-4.5); POTASSIUM 3.4 mmol/L (3.5-5.1); SODIUM 137 mmol/L (136-145); TCO2 33 mmol/L (25-35); TOTAL BILIRUBIN 0.58 mg/dL (0.20-1.00); TOTAL PROTEIN 4.4 g/dL (6.3-8.3)
[2019-02-02] MEDS ORDERED: KLOR-CON PO ONE (07:06)
--- NOTE | 2019-02-02 08:46 | Diag Imaging Result Doc PS360 ---
CHEST-PORTABLE - 02/02/2019 INDICATION: dyspnea COMPARISON: 02/01/2019 FINDINGS: Stable right chest port in good position. There has been improvement in the left lower lobe infiltrate. Otherwise stable mild central interstitial infiltrates bilaterally that are nonspecific. Likely representing pulmonary edema. No pneumothorax or significant pleural effusion. Stable cardiomegaly and mild pulmonary vascular congestion. IMPRESSION: Improvement in the left lower lobe infiltrate. Persistent cardiomegaly and mild pulmonary edema. Electronically signed by Adilson Steve 02/02/2019 8:44 AM
[2019-02-02] MEDS: NICODERM PATCH TD SCH (09:08)
[2019-02-02] MEDS: COLACE PO SCH (09:09)
[2019-02-02] MEDS: XANAX PO SCH ×2 (09:09→20:07)
[2019-02-02] MEDS: FOLIC ACID PO SCH ×2 (09:09→20:08)
[2019-02-02] MEDS: NEURONTIN PO SCH ×2 (09:09→20:07)
[2019-02-02] MEDS: CORDARONE PO SCH (09:09)
--- NOTE | 2019-02-02 10:21 | PROGRESS NOTE ---
DATE: 02/02/2019 SUBJECTIVE: As per the patient, she is feeling better today. She is completely alert and oriented x3. She has not been on pressors for the past 24 hours. Echocardiogram has been done and it looks fine. She is still slightly hypokalemic, I will replace the potassium. OBJECTIVE: Vital Signs: Temperature 97.5 degrees, pulse 85, respiratory rate 19, blood pressure 116/63, oxygen saturation 96% on 2 L of nasal cannula. HEENT: Head normocephalic, no trauma. PERRLA. Neck: Supple. No JVD. No masses. Central trachea. Chest: Coarse breath sounds mostly at the bases. Cardiovascular: RRR. Abdomen: Soft. It is slightly to moderately distended. No pain to palpation. Positive bowel sounds. Extremities: Trace edema. No clubbing, no cyanosis. Neurological examination: The patient is alert and oriented x3. No focal deficits. LABORATORY: WBC 6.2, hemoglobin 9.4, hematocrit 28.6, platelet 148. Sodium 137, potassium 3.4, chloride 94, bicarbonate 33. BUN 6, creatinine 0.5, glucose 92, calcium 8.1, magnesium 1.6, albumin 2.2. ASSESSMENT AND PLAN: 1. Right lower lobe pneumonia. X-ray looks better. I already stopped the antibiotic treatment. She received Zosyn and levofloxacin for about 10 days. She is not complaining of shortness of breath or chest pain at this moment. She is still using oxygen, only 2 L. 2. Hypoxemic respiratory failure, likely secondary to pneumonia. We will continue to monitor. Will decrease the oxygen amount as tolerated. 3. Severe hypokalemia. This is better. Today, the potassium level is 3.4. I will replace it. 4. Hypophosphatemia, resolved. 5. Hypomagnesemia, resolved. 6. Atrial fibrillation with rapid ventricular response, now she is in sinus rhythm. She used to be on amiodarone drip and now she is on amiodarone oral. Cardiology Department has been following this patient. 7. Anemia, stable. 8. Hypertension. She has not been getting blood pressure medication for a few months. She used to be on pressors during this hospitalization, but not anymore. We will continue to monitor. 9. Pancreatic cancer, followed by Dr. Carrero. 10. History of recent jaw fracture, aware. 11. History of tobacco use. This patient has been highly advised against tobacco use. I will continue with daily cessation education. 12. Constipation, resolved. 13. Underlying urinary tract infection, treated. 14. Weakness and physical deconditioning. Continue physical therapy. I think she is making some progress. 15. Thrombocytopenia, resolved, probably related to medications. Overall, this patient is doing better. I believe she is stable enough to go to a step-down unit. We will continue to monitor. Hopefully in 1 or 2 days this patient can be discharged. cc: Josh Burgos MD
[2019-02-02] MEDS: XARELTO PO SCH (17:26)
[2019-02-03] MEDS: DUONEB (A & A) INH SCH ×2 (03:14→09:58)
[2019-02-03 07:45] LABS: HEMATOCRIT 32.6 % (37.0-47.0); HEMOGLOBIN 10.9 g/dL (12.0-16.0); RBC 3.23 XMIL (4.2-5.4); WBC 10.17 X1000 (4.8-10.8)
[2019-02-03 07:46] LABS: BASO# 0.05 X1000 (0.0-0.2); BASO% 0.5 % (0.0-0.8); EOS# 0.15 X1000 (0.0-0.7); EOS% 1.5 % (0.0-10.0); IMM GRAN# 0.19 X1000 (0.0-0.04); IMM GRAN% 1.9 % (0.0-0.5); LYMPH# 1.29 X1000 (1.2-3.4); LYMPH% 12.7 % (20.5-51.1); MCH 33.7 PG (27-31); MCHC 33.4 g/dL (33-37); MCV 100.9 FL (81-99); MONO# 1.55 X1000 (0.11-0.59); MONO% 15.2 % (1.7-9.3); MPV 12.8 FL (7.4-10.4); NEUT# 6.94 X1000 (1.4-6.5); NEUT% 68.2 % (42.2-75.2); PLT 172 X1000 (130-400); RDW 22.5 % (11.5-14.5)
[2019-02-03 08:12] LABS: AGAP 7; BUN 8 mg/dL (8-22); CALCIUM 8.2 mg/dL (8.8-10.2); CHLORIDE 96 mmol/L (98-107); COSMO 268; CREATININE 0.5 mg/dL (0.5-0.9); ESTIMATED GFR > 60; GLUCOSE 98 mg/dL (70-104); MAGNESIUM 1.6 mg/dL (1.5-2.7); SODIUM 135 mmol/L (136-145); TCO2 32 mmol/L (25-35)
[2019-02-03] MEDS: NEURONTIN PO SCH (09:57)
[2019-02-03] MEDS: NICODERM PATCH TD SCH (09:58)
[2019-02-03] MEDS: ULTRAM PO PRN (09:58)
[2019-02-03] MEDS: FOLIC ACID PO SCH (09:58)
[2019-02-03] MEDS: COLACE PO SCH (09:58)
[2019-02-03] MEDS: CORDARONE PO SCH (09:58)
--- NOTE | 2019-02-03 11:23 | DISCHARGE SUMMARY ---
ADMISSION DATE: 01/21/2019 DISCHARGE DATE: 02/03/2019 ADMITTING DIAGNOSES: 1. Right lower lobe pneumonia. 2. Chronic obstructive pulmonary disease exacerbation. 3. Oral thrush causing dysphagia. 4. Anemia. 5. Hypotension. 6. Pancreatic cancer. 7. Nicotine dependence. DISCHARGE DIAGNOSES: 1. Right lower lobe pneumonia. 2. Hypoxemic respiratory failure. 3. Hypokalemia, resolved. 4. Hypomagnesemia, resolved. 5. Atrial fibrillation with rapid ventricular response, new onset, currently in sinus rhythm. 6. Anemia. 7. Hypotension, resolved. 8. History of pancreatic cancer. 9. Nicotine dependence. 10.Constipation. 11.Urinary tract infection, resolved. 12.Weakness and physical deconditioning. 13.Thrombocytopenia. CONSULTATIONS: Dr. Krissy Carrero with Hematology/Oncology. Dr. Jaron Sandy with Cardiology. DIAGNOSTIC PROCEDURES AND FINDINGS: Chest x-ray from 01/21/2019 with right upper lobe ground- glass opacity suspicious for developing pneumonia. Abdomen x-ray from 01/22/2019 with mild constipation of the ascending colon but no obstruction. Chest x-ray from 01/27/2019 with interval development of small pleural effusions with basilar atelectasis and possibly underlying infiltrates. Chest x-ray from 02/01/2019 with improved pleural effusions and pulmonary edema and/or pneumonia. Chest x-ray from 02/02/2019 with improvement in left lower lobe infiltrate, consistent cardiomegaly and mild pulmonary edema. Echocardiogram from 01/31/2019 with EF of 66%, small pericardial effusion not causing any hemodynamic compromise, mild TR, pulmonary pressure 35 mmHg. HOSPITAL COURSE: Ms. Koroma is a 63-year-old female with a history of pancreatic cancer followed by Dr. Carrero. She also has COPD. She was admitted with right lower lobe pneumonia. She was also hypotensive and complaining of oral thrush. She was started on broad spectrum antibiotics. She was also started on IV steroids, breathing treatments and oxygen. We consulted Dr. Carrero with Hematology/Oncology who decided to hold any chemotherapy while in the hospital. Fluconazole was started for oral thrush. It was also noted that she has a history of bilateral DVTs and is on Xarelto. The patient required somewhat of a prolonged stay, but she slowly started to improve. She was even able to start walking up and down the hallway with physical therapy. On 01/31/2019 at 1:00 in the morning, she went into atrial fibrillation with RVR. This was treated with amiodarone. She also required IV vasopressor and ICU transfer. We consulted Cardiology who agreed with amiodarone, and there was no need for anticoagulation given that she was already on Xarelto. She converted to sinus rhythm with the amiodarone. She was transitioned to oral amiodarone. Overall she has improved. But it was noted that she was having some urinary symptoms in which a UA done did reveal UTI ultimately growing Staphylococcus epidermidis which was treated appropriately with antibiotics in the hospital. Today she is feeing better, but we did check oxygen on room air. She was hypoxic, so we did feel that she needed to be on oxygen at home, so that was taken care of. Otherwise, she is now stable for discharge. DISCHARGE MEDICATIONS: DuoNeb 3 mL every 4 to 6 hours as needed for wheezing, Zofran 4 mg ODT as needed every 4 hours, Xarelto 20 mg p.o. at night, tramadol 50 mg p.o. q.4 hours as needed, Neurontin 300 mg p.o. b.i.d., nicotine patch 21 mg transdermal daily, Colace 100 mg p.o. daily, amiodarone 400 mg p.o. daily, folic acid 1 mg p.o. b.i.d., milk of magnesia 30 mL p.o. daily as needed, Preparation H as needed, Tylenol 650 mg p.o. every 4 hours as needed for fever or pain, Percocet 5 every 6 hours as needed for pain, Xanax 1 mg p.o. b.i.d. DISCHARGE VITAL SIGNS: Blood pressure is 96/81, heart rate 86, respiratory rate 18, O2 saturation is 97% on 2 L, temperature is 98 degrees Fahrenheit. DISCHARGE DIET: Heart healthy. DISCHARGE ACTIVITY: Resume activity as tolerated. DISPOSITION AND OTHER DISCHARGE INSTRUCTIONS: The patient is discharged home to home health. She is to follow up with Dr. Sandy in a month, Dr. rKissy Carrero as directed, PCP, Dr. Antolin Parks. All questions have been answered. Discharge time greater than 35 minutes. Dictated by VISHAL Curry for Josh Burgos MD cc: VISHAL Curry MD Heather Shah, MD Gregory S. Cheatham, MD Peter Johnson, MD
[2019-02-03 11:54] VITALS: BP 125/65
[2019-02-03] MEDS: XANAX PO SCH (12:00)
== END 2019-02-03 14:40 | disposition home health service (06) | DRG 193 ==
LOC: ED 17:03 → 3N 23:40 → SUATTDRO 23:40 → ICU 01-31 02:14 → 3N 02-02 21:25
PROVIDERS: ATTEND Internal Medicine
CPT/HCPCS: 36430; 71010; 71020; 71045; 71046; 74019; 74020; 80048; 80053; 81001; 82270; 82533; 82607; 82728; 82746; 83540; 83605; 83690; 83735; 84100; 84132; 84443; 85014; 85018; 85025; 85045; 86850; 86900; 86901; 86920; 87040; 87077; 87081; 87088; 87186; 87275; 87276; 87430; 87804; 93005; 93010; 93306; 94640; 94761; 94799; 96365; 96367; 96375; 97110; 97116; 97162; 97165; 97530; 97535; 99285; A9270; J0282; J0696; J1160; J1450; J1720; J1940; J1956; J2405; J2543; J3475; J3480; J7030; J7050; J7060; P9016

== ENCOUNTER 2019-02-15 12:55 | Inpatient (IN) ==
[2019-02-15] MEDS ORDERED: NS 1,000 ML IV ONE (13:29)
[2019-02-15 13:58] LABS: BASO# 0.04 X1000 (0.0-0.2); BASO% 0.2 % (0.0-0.8); EOS# 0.01 X1000 (0.0-0.7); HEMATOCRIT 32.1 % (37.0-47.0); HEMOGLOBIN 10.9 g/dL (12.0-16.0); LYMPH# 0.48 X1000 (1.2-3.4); LYMPH% 2.2 % (20.5-51.1); MCV 103.2 FL (81-99); MONO# 0.08 X1000 (0.11-0.59); MONO% 0.4 % (1.7-9.3); NEUT# 21.36 X1000 (1.4-6.5); NEUT% 97.2 % (42.2-75.2); PLT 91 X1000 (130-400); RBC 3.11 XMIL (4.2-5.4); RDW 20.7 % (11.5-14.5); WBC 21.97 X1000 (4.8-10.8)
--- NOTE | 2019-02-15 14:09 | Diag Imaging Result Doc PS360 ---
EXAM: CHEST-1 VIEW 02/15/2019 HISTORY: scattered rales, weakness, recent PNA TECHNIQUE: AP portable at 1350 COMMENT: There is platelike opacity over both lung bases particularly the left lower lobe. The inspiration is less optimal than on 02/02/2019. Other than the basilar opacities lungs actually appear somewhat clearer. IMPRESSION: Bibasilar atelectasis versus pneumonia. Electronically signed by Foster Meza 02/15/2019 2:07 PM
[2019-02-15 14:15] LABS: AGAP 8; ALB/GLOB RATIO 0.8; ALBUMIN 2.4 g/dL (3.5-5.0); ALKALINE PHOSPHATASE 220 U/L (32-104); BUN 20 mg/dL (8-22); CALCIUM 7.5 mg/dL (8.8-10.2); CHLORIDE 93 mmol/L (98-107); COSMO 267; CREATININE 0.8 mg/dL (0.5-0.9); ESTIMATED GFR > 60; GLUCOSE 122 mg/dL (70-104); GOT 32 U/L (10-30); GPT 13 U/L (10-36); POTASSIUM 4.9 mmol/L (3.5-5.1); SODIUM 131 mmol/L (136-145); TCO2 30 mmol/L (25-35); TOTAL BILIRUBIN 0.98 mg/dL (0.20-1.00); TOTAL PROTEIN 5.3 g/dL (6.3-8.3)
--- NOTE | 2019-02-15 15:58 | EKG Report ---
Test Performed on : 02/15/2019 1:26:13 PM Test Reason : WEAKNESS Blood Pressure : / mmHG Vent. Rate : 092 BPM Atrial Rate : 092 BPM P-R Int : 134 ms QRS Dur : 088 ms QT Int : 366 ms P-R-T Axes : 002 060 003 degrees QTc Int : 452 ms Normal sinus rhythm. T wave abnormality, consider anterior ischemia Abnormal ECG When compared with ECG of 31-JAN-2019 02:13, premature ventricular complexes. are no longer present T wave inversion no longer evident in Inferior leads Inverted T waves have replaced nonspecific T wave abnormality in Anterior leads Nonspecific T wave abnormality has replaced inverted T waves in Lateral leads Unconfirmed Result
[2019-02-15] MEDS ORDERED: DUONEB (A & A) INH PRN (16:26)
[2019-02-15] MEDS ORDERED: XANAX PO PRN (16:26)
[2019-02-15] MEDS ORDERED: VANCOMYCIN IV PER PHARMACY MISC SCH (16:30)
[2019-02-15] MEDS ORDERED: XARELTO PO SCH (17:00)
[2019-02-15] MEDS: NS 1,000 ML IV SCH (17:09)
[2019-02-15] MEDS: ZOSYN 3.375 GM in NS 50 ML IV SCH ×2 (17:09→22:17)
[2019-02-15] MEDS: MIRALAX PO SCH (17:10)
[2019-02-15] MEDS ORDERED: VANCOMYCIN 1.4 GM in NS 250 ML IV ONE (18:00)
--- NOTE | 2019-02-15 19:04 | HISTORY AND PHYSICAL ---
CHIEF COMPLAINT: Weakness, abdominal pain, and respiratory distress. HISTORY OF PRESENT ILLNESS: This is a 63-year-old female with a history of metastatic pancreatic cancer with peritoneal carcinomatosis who presents to the emergency room having increasing abdominal pain, abdominal distention, nausea, general weakness as well as a cough with thick secretions. She was found on the floor this morning by her family. She was down for an unknown amount of time. The patient states that she tried to get up and that she fell trying to get out of bed. She was hospitalized in January for right lower lobe pneumonia. The family states that when she went home that she seemed to do pretty good for a few days, but over the last week or 2, they have noticed just gradual weakness. PAST MEDICAL HISTORY: Metastatic pancreatic cancer, COPD, hypertension, bilateral lower extremity DVTs, currently on Xarelto. PAST SURGICAL HISTORY: Right hand surgery, neck fusion, cholecystectomy, and port placed in the right pectoral area. SOCIAL HISTORY: She smokes about half a pack a day. She denies any alcohol or drug use. She does live with a boyfriend. She has a daughter that is close by and active in her care. ALLERGIES: Hydrocodone, codeine. HOME MEDICATIONS: A list will be obtained by the nursing staff, and once verified, we will review and restart as appropriate. REVIEW OF SYSTEMS: Discussed with patient with pertinent positives as stated in the HPI. She denies any syncope or dizziness, any chest pain, palpitations, any vomiting, diarrhea, constipation, black or bloody vomitus or stools, hematuria, dysuria, frequency or urgency. PHYSICAL EXAMINATION: GENERAL: This is a 63-year-old female who is lying on the stretcher in the emergency room in no distress. VITAL SIGNS: Blood pressure is 101/61 with a heart rate of 86, respirations are 18, temperature is 98.1 degrees with O2 saturations 97% to 99% on room air. HEENT: Head is normocephalic, atraumatic. Mucous membranes are dry. NECK: Supple with trachea midline. CARDIOVASCULAR: Regular rate and rhythm. S1 and S2 are appreciated. She has no lower extremity edema. Calves are nontender bilateral with peripheral pulses palpable x4 extremities. PULMONARY: She has expiratory rales. She has had some rhonchi that do not clear to cough. Chest rises and falls symmetric with respiration. Chest wall is nontender to palpation. GASTROINTESTINAL: Abdomen is distended. She is tender around the trocar site to the right side of her umbilicus. She does have bowel sounds in all 4 quadrants. SKIN: Pale warm and dry. NEUROLOGIC: She is alert and oriented. LABS: WBC is 21.9 with a hemoglobin of 10.9, hematocrit 32.1, and platelets of 91,000. Sodium is 131, potassium 4.9, BUN 20, creatinine 0.8 with a glucose of 122, alkaline phosphatase is 220, albumin is 2.4. Her magnesium is 4.1. Blood cultures are pending. IMAGING: Chest x-ray reveals bibasilar atelectasis versus pneumonia. ASSESSMENT AND PLAN: Bibasilar pneumonia. Blood cultures were obtained in the emergency room. We will give antibiotic coverage of vancomycin and Zosyn dosed per pharmacy. Give gentle IV hydration. We will identify her home medications and continue as appropriate. We will repeat a CBC, BMP in the morning. We will obtain a procalcitonin and a sputum specimen. Start DuoNebs q.[address] Krissy Carrero of the patient's admission and status. For gastrointestinal prophylaxis, we will use Prilosec. Further treatments pending hospital course. Dictated by VISHAL Ellis for Shamar Pierre MD cc: VISHAL Ellis MD I agree with most components of history, physical, assessment and plan. I performed face to face encounter and evaluated the patient in ER. In brief, Ms Koroma presented with 1. Acute hypoxic respiratory failure and sepsis due to bilateral lower lobe pneumonia. 2. History of atrial fibrillation with rapid ventricular rate. 3. History of metastatic pancreatic cancer with peritoneal carcinomatosis. Her last chemotherapy was on 02/11/2019. 4. Anxiety and chronic pain. Plan; Start bronchodilator nebulization, intravenous vancomycin and Zosyn, Follow up blood culture and sputum culture results with procalcitonin. Continue her on amiodarone and hold Xarelto because of her thrombocytopenia. MTDD
[2019-02-15] MEDS: ROBITUSSIN PO SCH ×2 (22:01→22:19)
[2019-02-15] MEDS: CORDARONE PO SCH (22:01)
[2019-02-15] MEDS: MYCOSTATIN SUSP PO SCH ×2 (22:02→22:17)
[2019-02-15] MEDS: DULCOLAX PR SCH (22:04)
[2019-02-15] MEDS: TUMS PO SCH (22:17)
[2019-02-15] MEDS: PERCOCET-5 PO PRN (22:17)
[2019-02-15] MEDS: NEURONTIN PO SCH (22:18)
[2019-02-15] MEDS: REMERON PO SCH (22:19)
[2019-02-16] MEDS: DUONEB (A & A) INH SCH ×6 (03:00→23:18)
[2019-02-16 03:49] LABS: ALLEN TEST YES; BE 4.2 mmoll (-3.0-3.0); BLOOD TYPE ARTERIAL; HCO3-(ACT) 28.2 mmoll (20.0-26.0); METHB 0.7 % (0.0-1.5); MODALITY NRB; O2(CT) 12.7 mL/dL (15.0-23.0); O2HB 96.4 % (95.0-99.0); PCO2(98.6) 45 mmHg (35-45); PO2(98.6) 82 mmHg (60-100); SAMPLE BLOOD; SAO2 99.2 % (95.0-100.0); THB 9.3 g/dL (11.5-17.4); pH(98.6) 7.42 (7.35-7.45)
[2019-02-16] MEDS: ROBITUSSIN PO SCH ×5 (04:49→22:45)
[2019-02-16] MEDS: ZOSYN 3.375 GM in NS 50 ML IV SCH ×4 (04:50→21:13)
[2019-02-16] MEDS: NS 1,000 ML IV SCH (06:09)
[2019-02-16 06:27] LABS: BASO# 0.01 X1000 (0.0-0.2); BASO% 0.1 % (0.0-0.8); EOS# 0.04 X1000 (0.0-0.7); EOS% 0.4 % (0.0-10.0); HEMATOCRIT 26.7 % (37.0-47.0); HEMOGLOBIN 8.9 g/dL (12.0-16.0); IMM GRAN# 0.49 X1000 (0.0-0.04); IMM GRAN% 4.9 % (0.0-0.5); LYMPH# 0.26 X1000 (1.2-3.4); LYMPH% 2.6 % (20.5-51.1); MCH 33.8 PG (27-31); MCHC 33.3 g/dL (33-37); MCV 101.5 FL (81-99); MONO# 0.05 X1000 (0.11-0.59); MONO% 0.5 % (1.7-9.3); NEUT# 9.22 X1000 (1.4-6.5); NEUT% 91.5 % (42.2-75.2); PLT 61 X1000 (130-400); RBC 2.63 XMIL (4.2-5.4); RDW 20.4 % (11.5-14.5); WBC 10.07 X1000 (4.8-10.8)
[2019-02-16 06:56] LABS: CHLORIDE 96 mmol/L (98-107); POTASSIUM 4.3 mmol/L (3.5-5.1); SODIUM 132 mmol/L (136-145)
[2019-02-16 06:57] LABS: AGAP 8; BUN 19 mg/dL (8-22); COSMO 268; CREATININE 0.6 mg/dL (0.5-0.9); ESTIMATED GFR > 60; GLUCOSE 121 mg/dL (70-104); TCO2 28 mmol/L (25-35)
--- NOTE | 2019-02-16 07:12 | Diag Imaging Result Doc PS360 ---
EXAM: CHEST-1 VIEW HISTORY: hypoxia, pneumonia TECHNIQUE: Chest single view COMPARISON: 02/15/2019 FINDINGS: No change in the right jugular line. There are basilar infiltrates and atelectasis. These are more prominent than on the prior study. There are also small pleural effusions. No cardiomegaly. IMPRESSION: Interval worsening. Electronically signed by Christopher Felix 02/16/2019 7:10 AM
[2019-02-16] MEDS: MYCOSTATIN SUSP PO SCH ×4 (08:36→20:59)
[2019-02-16] MEDS: NEURONTIN PO SCH ×2 (08:36→21:14)
[2019-02-16] MEDS: CORDARONE PO SCH (08:36)
[2019-02-16] MEDS: TUMS PO SCH ×3 (08:36→16:02)
[2019-02-16] MEDS: MIRALAX PO SCH (08:37)
[2019-02-16] MEDS: NICODERM PATCH TD SCH (08:37)
[2019-02-16] MEDS: LASIX IV SCH ×2 (08:37→14:47)
[2019-02-16 08:52] LABS: ANISOCYTOSIS 2+; LYMPHS 2 % (21-51); MONO 1 % (1-9); SEGS 95 % (42-75)
--- NOTE | 2019-02-16 10:03 | PROGRESS NOTE ---
DATE: 02/16/2019 INTERVAL HISTORY: Overnight, the patient did have a drop in her SpO2 and she needed a nonrebreather mask. Her MAPS are largely in 60s. She has worsening of her thrombocytopenia. Her leukocytosis has resolved. SUBJECTIVE: Patient appears very weak and pale. She is tremulous. She is sleepy. She states that the mask is making her claustrophobic and is uncomfortable. VITALS: Temperature 98.3 degrees pulse 106, respiratory rate is 20 blood pressure is 90/50 50, MAP of 60. She is on 100% non-rebreather mask. PHYSICAL EXAMINATION: In mild distress because of weakness. Oral cavity has oral candidiasis. Decreased air entry bilateral inframammary region with inspiratory crackles. S1, S2 normal tachycardic no murmur or gallop. Abdomen is distended, tympanic to percussion active bowel sound. No lower extremity edema. She is drowsy but arousable. LABS: Suggestive of no leukocytosis, anemia, thrombocytopenia. Her ABG suggest a PO2 of 82 on 100% non-rebreather mask. She does have persistent hyponatremia, hypochloremia, hypocalcemia and ionized calcium has been ordered. Her lactate yesterday where within normal limit. Blood cultures are in lab. She has not been able to bring the sputum. She states she had a liquid brown bowel movement. ASSESSMENT AND PLAN: 1. Acute hypoxic respiratory failure and sepsis due to bilateral lower lobe pneumonia. Continue bronchodilator nebulization, intravenous vancomycin and Zosyn. Stop fluids and give intravenous Lasix. Follow up blood culture and sputum culture results, procalcitonin. 2. History of atrial fibrillation with rapid ventricular rate. Continue her on amiodarone and hold Xarelto because of her thrombocytopenia. 3. History of metastatic pancreatic cancer with peritoneal carcinomatosis. Hematology/oncology has been consulted. Her last chemotherapy was on 02/11/2019. I will continue her on gabapentin, Percocet for pain relief and alprazolam for anxiety and mirtazapine for insomnia. The patient's code status is DNR level 1 as per discussion with her. I will also consult Palliative Care team. 4. Others continue bisacodyl and MiraLAX for constipation, calcium carbonate for hypocalcemia, guaifenesin for cough, nystatin for oral candidiasis. DISPOSITION: The patient's condition is tenuous and the prognosis is poor. I will discuss with the family about comfort measures and hospice later today or tomorrow. Plan of care discussed with the nursing team and the patient. All of their questions have been answered. cc: Shamar Pierre MD MTDD
[2019-02-16 11:01] LABS: URINE SOURCE CATH
[2019-02-16 11:05] LABS: BILIRUBIN URINE NEGATIVE (NEGATIVE); BLOOD URINE NEGATIVE (NEGATIVE); COLOR YELLOW; GLUCOSE URINE NEGATIVE (NEGATIVE); KETONE URINE NEGATIVE (NEGATIVE); LEUKOCYTES URINE NEGATIVE (NEGATIVE); NITRITE URINE NEGATIVE (NEGATIVE); PH URINE 6.5; PROTEIN URINE NEGATIVE (NEGATIVE); SP GRAVITY URINE 1.015; TURBIDITY URINE CLEAR (CLEAR); UROBILINOGEN URINE NORMAL (NORMAL)
[2019-02-16 11:06] LABS: UR EPITHELIAL CELLS <10 /HPF (<10); URINE BACTERIA NEGATIVE /HPF; URINE RBC <10 /HPF (<10); URINE WBC <10 /HPF (<10)
[2019-02-16] MEDS: DULCOLAX PR SCH (20:58)
[2019-02-16] MEDS: VANCOMYCIN 1 GM/NS 1 GM/250 ML IVPB IV SCH (21:13)
[2019-02-16] MEDS: REMERON PO SCH (21:14)
[2019-02-16] MEDS: PERCOCET-5 PO PRN (21:27)
[2019-02-16] MEDS ORDERED: BLISTEX MEDICATED BERRY LIP BALM TOP PRN (21:33)
[2019-02-17] MEDS: DUONEB (A & A) INH SCH ×6 (03:00→23:17)
[2019-02-17] MEDS: ZOSYN 3.375 GM in NS 50 ML IV SCH ×4 (03:14→20:31)
[2019-02-17] MEDS: ROBITUSSIN PO SCH ×4 (03:51→22:38)
[2019-02-17 05:54] LABS: BASO# 0.01 X1000 (0.0-0.2); BASO% 0.5 % (0.0-0.8); EOS# 0.03 X1000 (0.0-0.7); EOS% 1.5 % (0.0-10.0); HEMATOCRIT 25.5 % (37.0-47.0); HEMOGLOBIN 8.4 g/dL (12.0-16.0); LYMPH% 20.1 % (20.5-51.1); MCH 33.1 PG (27-31); MCHC 32.9 g/dL (33-37); MCV 100.4 FL (81-99); MONO# 0.05 X1000 (0.11-0.59); MONO% 2.5 % (1.7-9.3); NEUT% 75.4 % (42.2-75.2); PLT 46 X1000 (130-400); RBC 2.54 XMIL (4.2-5.4); RDW 19.8 % (11.5-14.5); WBC 1.99 X1000 (4.8-10.8)
[2019-02-17 06:15] LABS: AGAP 11; BUN 18 mg/dL (8-22); CALCIUM 7.5 mg/dL (8.8-10.2); CHLORIDE 94 mmol/L (98-107); COSMO 271; CREATININE 0.8 mg/dL (0.5-0.9); ESTIMATED GFR > 60; GLUCOSE 146 mg/dL (70-104); MAGNESIUM 3.2 mg/dL (1.5-2.7); SODIUM 133 mmol/L (136-145); TCO2 28 mmol/L (25-35)
--- NOTE | 2019-02-17 09:50 | PROGRESS NOTE ---
DATE: 02/17/2019 OVERNIGHT EVENTS: The patient was given intravenous Lasix. Input and output suggests she is -800 mL. She still requires a high amount of oxygen. She has developed pancytopenia. Her MAP has been in the 60s. Her pulse was slightly tachycardic at 9700. SUBJECTIVE: She is feeling the same. She says she does not like the bulky nonrebreather mask. She wants me to try something else. We discussed about her pneumonia, following up with chest x- ray. We discussed she has become weak because of chemotherapy, and she says she wants to fight this off. OBJECTIVE: Current Vital Signs: Temperature 98.2 degrees, pulse 97, respiratory rate 16, blood pressure 97/53, saturating 100% on nonrebreather mask. General: Appears in mild distress because of weakness. HEENT: Oral cavity has oral candidiasis. Lungs: Decreased air entry, bilateral inframammary region, with inspiratory crackles. Cardiovascular: S1, S2 normal. Tachycardic. No murmur, rub, or gallop. Abdomen: Distended, tympanic to percussion. Active bowel sounds. Extremities: No lower extremity edema. Neurologic: She is drowsy, but arousable. LABORATORY DATA: WBC of 1.9, hemoglobin 8.4, platelets of 46,000. Her absolute neutrophil count is 1500. I will follow up with repeat CBC to confirm. BMP is suggestive of hyponatremia, hypochloremia. Normal kidney function. She does have hypocalcemia. Her magnesium level is 3.2. MICROBIOLOGY: No positive blood culture. She has not been able to spit out the sputum. IMAGING: Chest x-ray is pending. ASSESSMENT AND PLAN: 1. Acute hypoxic respiratory failure and sepsis due to bilateral lower lobe pneumonia. Continue bronchodilator nebulization, intravenous vancomycin and Zosyn. Follow up repeat chest x-ray today, and I would talk with the nursing team about collecting sputum culture. Procalcitonin is in lab. 2. Pancytopenia. This could be in the setting of sepsis versus the chemotherapy that she had received approximately 6 days ago- likely Gemzar and Abraxane, the details of which are pending, versus rare side effects of Vancomycin/Zosyn I will repeat CBC, and I will consult her bladder trimmer. 3. Atrial fibrillation with rapid ventricular rate history. Continue home amiodarone, and hold Xarelto because of thrombocytopenia. 4. History of metastatic pancreatic cancer with peritoneal carcinomatosis. Hematology/Oncology has been on board. Last chemotherapy was on 02/11/2019. I will continue her home gabapentin, Percocet, alprazolam, and mirtazapine for pain, anxiety, and insomnia. Her code status is DO NOT RESUSCITATE level 1. Palliative Care team has been consulted. 5. Others. Continue bisacodyl and MiraLAX for constipation, calcium carbonate for hypocalcemia, guaifenesin for cough, nystatin for oral candidiasis. 6. Disposition. The patient's condition is critical, and her prognosis is poor. She has become significantly deconditioned because of her cancer and chemotherapy. I would not think her functional status would allow further chemotherapy in the near future. I tried to talk with the patient about comfort measures, but for now she wants to fight this off. I will continue goals of care discussion with her and family. cc: Shamar Pierre MD MTDD
[2019-02-17] MEDS: NEURONTIN PO SCH ×2 (10:12→20:31)
[2019-02-17] MEDS: MIRALAX PO SCH (10:12)
[2019-02-17] MEDS: TUMS PO SCH ×3 (10:15→18:34)
[2019-02-17] MEDS: CORDARONE PO SCH (10:15)
[2019-02-17] MEDS: MYCOSTATIN SUSP PO SCH ×4 (10:15→20:32)
[2019-02-17] MEDS: NICODERM PATCH TD SCH (10:16)
[2019-02-17 10:30] LABS: BASO# 0.01 X1000 (0.0-0.2); BASO% 0.6 % (0.0-0.8); EOS# 0.05 X1000 (0.0-0.7); EOS% 3.1 % (0.0-10.0); HEMATOCRIT 25.6 % (37.0-47.0); HEMOGLOBIN 8.8 g/dL (12.0-16.0); LYMPH# 0.32 X1000 (1.2-3.4); LYMPH% 20.1 % (20.5-51.1); MCH 34.2 PG (27-31); MCHC 34.4 g/dL (33-37); MCV 99.6 FL (81-99); MONO# 0.05 X1000 (0.11-0.59); MONO% 3.1 % (1.7-9.3); NEUT# 1.16 X1000 (1.4-6.5); NEUT% 73.1 % (42.2-75.2); PLT 38 X1000 (130-400); RBC 2.57 XMIL (4.2-5.4); RDW 19.6 % (11.5-14.5); WBC 1.59 X1000 (4.8-10.8)
[2019-02-17 11:11] LABS: ANISOCYTOSIS 2+; EOS 3 % (1-10); LYMPHS 19 % (21-51); MONO 4 % (1-9); POLYCHROM OCCASIONAL; SEGS 74 % (42-75)
--- NOTE | 2019-02-17 12:39 | Diag Imaging Result Doc PS360 ---
EXAM: CHEST-PORTABLE - 02/17/2019 HISTORY: Follow up pneumonia bibasilar TECHNIQUE: Portable chest COMPARISON: 02/16/2019 FINDINGS: There is been overall decrease in bilateral infiltrates. There are stable small bilateral pleural effusions. There is no pneumothorax identified. Heart size appears normal. Central venous catheter remains in place. IMPRESSION: Overall decrease in bilateral infiltrates. Electronically signed by Peter Quijano 02/17/2019 12:37 PM
[2019-02-17] MEDS ORDERED: GRANIX SUBQ SCH (18:00)
[2019-02-17] MEDS: PERCOCET-5 PO PRN (20:31)
[2019-02-17] MEDS: REMERON PO SCH (20:31)
[2019-02-17] MEDS: DULCOLAX PR SCH (20:32)
[2019-02-17] MEDS: VANCOMYCIN 1 GM/NS 1 GM/250 ML IVPB IV SCH (22:38)
[2019-02-18] MEDS: DUONEB (A & A) INH SCH ×4 (03:05→15:20)
[2019-02-18] MEDS: ZOSYN 3.375 GM in NS 50 ML IV SCH ×2 (03:49→08:39)
[2019-02-18] MEDS: ROBITUSSIN PO SCH ×3 (03:49→15:39)
--- NOTE | 2019-02-18 04:15 | HISTORY AND PHYSICAL ---
HISTORY OF PRESENT ILLNESS: Addendum to history and physical dictated by the nurse practitioner. I agree with most components of history, physical, assessment and plan. In brief, Ms Koroma is a 63-year-old, lady, with past medical history of pancreatic cancer, metastatic to peritoneum with peritoneal carcinomatosis on chemotherapy, anxiety, atrial fibrillation with rapid ventricular rate, COPD with chronic hypoxic respiratory failure on home 2 to 3 L oxygen, recent hospital admission for septic shock because of right lower lobe pneumonia, who came in because she has been increasingly feeling weak and was not able to get up from the floor when she fell down because her legs gave up. In the emergency room, she was found to have leukocytosis, microcytic anemia, thrombocytopenia, multiple electrolyte abnormalities and she was hypotensive with blood pressure of 90/50, so hospitalist team was consulted for further management. At the time of my evaluation, patient complains of congested chest, which is worsening since yesterday and not able to bring up any sputum which just started yesterday. The patient's family is at bedside. PHYSICAL EXAMINATION: VITAL SIGNS: Currently, temperature of 98.1, pulse of 87, respiratory rate 20, blood pressure 97/60, saturating 98% on 2 L nasal cannula. GENERAL: On physical examination, she appears pale. She also appears cachectic and appears chronically ill. Oral cavity has oral thrush. CARDIOVASCULAR: S1, S2 normal. No murmur or gallop. Decreased air entry bilateral infrascapular region. No wheeze or rhonchi. ABDOMEN: Distended. She has tympanic to percussion and dullness over the flank. EXTREMITIES: She has mild bilateral lower extremity edema. CHEST: On the chest wall, right-sided chest has a port which is minimally inflamed without any signs of infection. She does have some crusting, but no bleeding or pus. She has laparoscopy scar with associated subcutaneous nodules over her abdomen. NEUROLOGIC: She is alert and oriented x3. LABS: Suggestive of leukocytosis, macrocytic anemia. Thrombocytopenia, hyponatremia, hypochloremia. Microbiology: Blood culture is in lab. Sputum culture has to be collected yet. Chest x-ray suggested bilateral basal infiltrate suggestive of pneumonia. ASSESSMENT AND PLAN: 1. Bilateral lower lobe pneumonia. 2. Hyponatremia, hypochloremia, hypocalcemia and hypermagnesemia. 3. Chronic thrombocytopenia. 4. Macrocytic anemia. 5. Hypotension in the setting of bilateral pneumonia. PLAN: I will start patient on intravenous antibiotics and follow up with blood culture, sputum culture, and procalcitonin level. I will start her on nebulized bronchodilators for history of COPD. I will also continue her on amiodarone and Xarelto for history of atrial fibrillation. Hematology/Oncology will be consulted to notify them of patient's admission as requested by patient's family. Her current code status is full. Plan of care discussed with patient and her multiple family members at bedside. All of their questions have been answered. cc: Shamar Pierre MD
[2019-02-18 06:18] LABS: BASO# 0.02 X1000 (0.0-0.2); BASO% 1.6 % (0.0-0.8); EOS# 0.01 X1000 (0.0-0.7); EOS% 0.8 % (0.0-10.0); HEMATOCRIT 26.2 % (37.0-47.0); HEMOGLOBIN 8.9 g/dL (12.0-16.0); IMM GRAN# 0.08 X1000 (0.0-0.04); IMM GRAN% 6.5 % (0.0-0.5); LYMPH# 0.22 X1000 (1.2-3.4); LYMPH% 17.9 % (20.5-51.1); MCH 33.7 PG (27-31); MCV 99.2 FL (81-99); MONO# 0.12 X1000 (0.11-0.59); MONO% 9.8 % (1.7-9.3); NEUT# 0.78 X1000 (1.4-6.5); NEUT% 63.4 % (42.2-75.2); RBC 2.64 XMIL (4.2-5.4); RDW 19.4 % (11.5-14.5); WBC 1.23 X1000 (4.8-10.8)
[2019-02-18 06:19] LABS: PLT 21 X1000 (130-400)
[2019-02-18 06:59] LABS: ANISOCYTOSIS 1+; BANDS 5 % (0-1); EOS 2 % (1-10); HYPOCHROM 2+; LYMPHS 15 % (21-51); MONO 6 % (1-9); SEGS 72 % (42-75)
[2019-02-18] MEDS: CORDARONE PO SCH (08:40)
[2019-02-18] MEDS: NICODERM PATCH TD SCH (08:40)
[2019-02-18] MEDS: TUMS PO SCH ×3 (08:41→16:26)
[2019-02-18] MEDS: NEURONTIN PO SCH (08:41)
[2019-02-18] MEDS: MYCOSTATIN SUSP PO SCH ×3 (08:41→16:25)
[2019-02-18] MEDS: MIRALAX PO SCH (08:41)
[2019-02-18] MEDS ORDERED: PERCOCET-5 PO PRN (08:53)
[2019-02-18] MEDS: MORPHINE IV PRN ×2 (09:11→18:03)
--- NOTE | 2019-02-18 10:44 | PROGRESS NOTE ---
DATE: 02/18/2019 INTERVAL HISTORY: Ms. Koroma is developing neutropenia for which I have changed her antibiotics. SUBJECTIVE: She appears much more lethargic today, though she answers simple questions, but she appears very weak today. We discussed about her very high oxygen requirement. The patient states that when I ask her what I could do for her, she says I should pray for her. VITALS: Temperature 98.1 degrees, pulse 84, respiratory rate 24, blood pressure 145/85, saturating 98% to 94% on 100% nonrebreather mask. PHYSICAL EXAMINATION: Appears very weak, in mild distress and drowsy because of hypoxia. Oral cavity is dry. She has 100% nonrebreather mask. She has decreased air entry in bilateral inframammary region with inspiratory crackles. Cardiovascular: S1, S2 normal. Tachycardic. No murmur, rub, or gallop. Abdomen: Distended, tympanic to percussion. Hypoactive bowel sounds. Bilateral lower extremity edema. Neurologic: She is drowsy but arousable. Answers simple questions but appears very weak. She has a right-sided chest port with some crusting over it. LAB EVALUATION: She has worsening pancytopenia, low hemoglobin, low WBC, and low platelet count. ASSESSMENT AND PLAN: 1. Acute hypoxic respiratory failure and sepsis due to bilateral lower lobe pneumonia and also profound weakness contributing to not being able to take care of the secretion. I will change her antibiotics to intravenous levofloxacin. Procalcitonin is in lab. Continue oxygenation through a nonrebreather mask. 2. Pancytopenia. I will start patient on filgrastim. Likely related to her cancer chemotherapy. 3. Atrial fibrillation with rapid ventricular rate history. Continue amiodarone. Hold Xarelto. 4. History of metastatic pancreatic cancer with peritoneal carcinomatosis. Hematology/oncology has been consulted as per my discussion. The patient does have poor prognosis. I have consulted palliative care to discuss with the family about hospice care. 5. Other. Continue bisacodyl, MiraLAX for constipation, calcium carbonate for hypocalcemia, guaifenesin for cough, nystatin for oral candidiasis. 6. Disposition. The patient's code status is Do Not Resuscitate level 1. She has extremely high oxygen requirement. She appears very weak. Her prognosis is really poor. I will discuss with family about hospice care today. cc: Shamar Pierre MD
[2019-02-18] MEDS: ATIVAN IV PRN ×2 (15:39→18:03)
[2019-02-18] MEDS ORDERED: LEVAQUIN 750 MG/D5W 750 MG/150 ML IVPB IV SCH (16:00)
--- NOTE | 2019-02-18 16:38 | Diag Imaging Result Doc PS360 ---
CHEST-PORTABLE - 02/18/2019 INDICATION: dyspnea, worsening hypoxia COMPARISON: 02/17/2019 FINDINGS: Stable right chest port. Lung volumes are much lower, severely low. There is worsening opacification at the left lung base. There is probably a moderate left pleural effusion and a trace right pleural effusion. Heart size remains top normal. IMPRESSION: Much lower lung volumes. Nonspecific worsening in the left lung base opacification. Electronically signed by Adilson Steve 02/18/2019 4:36 PM
[2019-02-18 16:43] VITALS: BP 111/61
[2019-02-18 16:56] LABS: BASO# 0.02 X1000 (0.0-0.2); BASO% 2.4 % (0.0-0.8); EOS# 0.01 X1000 (0.0-0.7); EOS% 1.2 % (0.0-10.0); HEMATOCRIT 28.2 % (37.0-47.0); HEMOGLOBIN 9.6 g/dL (12.0-16.0); IMM GRAN# 0.02 X1000 (0.0-0.04); IMM GRAN% 2.4 % (0.0-0.5); LYMPH# 0.26 X1000 (1.2-3.4); LYMPH% 30.6 % (20.5-51.1); MCH 34.2 PG (27-31); MCV 100.4 FL (81-99); MONO# 0.18 X1000 (0.11-0.59); MONO% 21.2 % (1.7-9.3); NEUT# 0.36 X1000 (1.4-6.5); NEUT% 42.2 % (42.2-75.2); PLT 27 X1000 (130-400); RBC 2.81 XMIL (4.2-5.4); RDW 19.6 % (11.5-14.5); WBC 0.85 X1000 (4.8-10.8)
[2019-02-18] MEDS ORDERED: ZOFRAN IV ONE (17:23)
[2019-02-18 18:23] LABS: EOS 2 % (1-10); LYMPHS 34 % (21-51); MONO 16 % (1-9); SEGS 48 % (42-75)
--- NOTE | 2019-02-20 18:12 | HEMO/ONC CONSULTATION ---
DATE: 02/18/2019 REQUESTING PROVIDER: Hospitalist Service. REASON FOR CONSULT: Metastatic pancreatic cancer, patient known. HISTORY OF PRESENT ILLNESS: Ms. Koroma is a 63-year-old female who is known to us as we are currently treating her for metastatic pancreatic cancer, who presented to the emergency department after experiencing a fall at home due to weakness. She actually contacted our office prior to presenting to the ER to tell us that she had fallen. The patient was actually in our office about a week ago to receive treatment. At that time, she was feeling well. She had been previously in the hospital for pneumonia but had made recovery and was in our office anticipating reinitiating treatment. She did receive the treatment and ambulated out of our facility and went home. It does appear that she started to have some issues again this past Monday. She just had the weakness and then the fall prior to. PAST MEDICAL HISTORY: 1. Metastatic pancreatic cancer, currently receiving Abraxane and Gemzar. Last dose of chemotherapy was on 02/11/2019. 2. Anxiety. 3. Hypertension. 4. COPD with recent exacerbation and hospitalization with pneumonia and sepsis. 5. Bilateral lower extremity DVTs, currently on Xarelto. PAST SURGICAL HISTORY: 1. Back surgery in 1998. 2. Ectopic resection in 1987. 3. Ankle fix on the right. SOCIAL HISTORY: The patient is 1 pack per day smoker for the past 30 years but reportedly quit back on 10/27/2018. She also previously drank about 3 shots of alcohol and 1 beer per day but has quit approximately 4 to 5 months ago. She has a daughter who usually comes to all of her appointments. She has other supportive family members. FAMILY HISTORY: Negative for cancer. REVIEW OF SYSTEMS: Twelve point review of systems has been completed and is negative except for what was expressed in the HPI. PHYSICAL EXAMINATION: Vital Signs: Temperature 97.4 degrees, heart rate 111, respirations are 22, blood pressure 114/54, O2 saturation is 84% on a non-rebreather. HEENT: Head normocephalic, atraumatic. Eyes: Pupils equal, round, reactive. Sclerae anicteric. Mouth: Oral mucosa appears to be dry. Gross auditory acuity is intact. Cardiovascular: Tachycardia noted but regular rhythm. Respiratory: Coarse breath sounds with rhonchi and wheezing noted. Gastrointestinal: Abdomen is slightly distended. Hypoactive bowel sounds noted. Musculoskeletal: Muscle wasting noted. No bony abnormalities. Extremities: She has bilateral lower extremity edema that extends all the way up both legs. Neurologic: Patient is alert. She seems weak. Seems oriented. LABS AND STUDIES: White blood cells today are down to 1.23, hemoglobin 8.9, platelet count 21,000. ANC is 780. Sodium 133, potassium 4.0, chloride 94, CO2 28, BUN 18, creatinine 0.8, glucose 146, calcium 7.5, magnesium is 3.2. ASSESSMENT AND PLAN: 1. Metastatic pancreatic cancer with recent treatment of Gemzar and Abraxane. Patient's treatment will be held. She is a hospice candidate. She can receive no further treatment which was discussed with the patient and her daughter today. It looks like they have already set up for inpatient hospice and that seems appropriate and the best option at this point. 2. Acute hypoxic respiratory failure and sepsis due to bilateral lower lobe pneumonia. She will continue on IV antibiotics. Continue on her non-rebreather. 3. Pancytopenia. Likely in part related to her chemotherapy, though her counts are quite low for 1 single dose of chemotherapy. Agree with filgrastim, which is already on board. Continue neutropenic precautions. 4. Atrial fibrillation with rapid ventricular rate. She will continue the amiodarone. 5. Disposition. Patient is already do not resuscitate level 1. Again we discussed hospice already with the patient and her daughter. We will continue to follow along. Dictated by SHREE Baeza for Krissy Carrero MD cc: Krissy Carrero MD
--- NOTE | 2019-02-21 11:51 | DISCHARGE SUMMARY ---
ADMISSION DATE: 02/15/2019 DISCHARGE DATE: 02/18/2019 Apparently, the patient is now being discharged from inpatient status and going into GIP status. DISCHARGE DIAGNOSES: 1. Acute hypoxic respiratory failure. 2. Sepsis. 3. Bilateral lower lobe pneumonia. 4. Pancytopenia. 5. Metastatic pancreatic cancer with peritoneal carcinomatosis. 6. Significant physical deconditioning after chemotherapy. 7. History of atrial fibrillation and rapid ventricular rate. VITALS: At the time of discharge, she is afebrile with temperature of 97.7 degrees, pulse 110, respiratory 26, blood pressure 110/61 and saturating 96% on 100% non-rebreather mask. PHYSICAL EXAMINATION: She appears significantly deconditioned, though not in any acute distress, but she appears very weak. Significant facial pallor and conjunctival pallor. Decreased respiratory effort, and she is not able to cough up her secretion. Decreased air entry bilateral inframammary region with inspiratory crackles. S1, S2 normal. Tachycardic. No murmur or gallop. Abdomen is distended, tympanitic to percussion. Significant tenderness bilateral lower extremity edema. Blood count suggests worsening pancytopenia with neutropenia, platelet count of 27,000, hemoglobin 9.6 and WBC 0.8. HOSPITAL COURSE/SUMMARY: Ms. Koroma is a 63-year-old lady with history of metastatic pancreatic cancer with peritoneal carcinomatosis so initially came to this hospital for worsening shortness of breath, cough and chest congestion. She was recently admitted for pneumonia and acute hypoxic respiratory failure. Inside the hospital in the emergency room, she was found to have bilateral lower lobe infiltrate, and is currently being treated with intravenous antibiotics. While inside the hospital, her hypoxia got worse. She was intermittently receiving intravenous Lasix and eventually ended up on 100% non-rebreather mask. This is thought to be related to her bilateral pneumonia as well as significant physical deconditioning that she was not able to clear up her secretions or take deep enough breath. Palliative care was involved, and extensive discussion was held with the patient and her daughter who is a surrogate decision maker about patient's poor physical and clinical condition as well as long-term prognosis. It was decided to make the patient hospice care, so [facility] consulted. Patient will be transferred to [facility] status. She will be started on intravenous lorazepam, intravenous morphine, and oxygen as needed. Current medication also includes intravenous morphine, intravenous antibiotics will be discontinued. Currently, she is on intravenous levofloxacin, subcu filgrastim or Neulasta p.o., bisacodyl and p.o. MiraLAX. TIME SPENT: Less than 30 minutes were spent in discharging this patient. cc: Shamar Pierre MD
--- NOTE | 2019-02-21 15:31 | PROVIDER DOCUMENTATION ---
This chart was entered by Arlin Cates Scribe, acting as scribe for Madi Feng MD. HPI-General Adult - General Chief Complaint: Weakness Stated Complaint: ABDOMINAL PAIN/WEAKNESS/FALL/RESP.DISTRESS Time Seen by Provider: 02/15/19 13:16 Source: family, EMS Allergies/Adverse Reactions: Patient Allergies Allergy/AdvReac Type Severity Reaction Status Date / Time hydrocodone Allergy Unknown Verified 01/22/19 06:24 codeine AdvReac NAUSEA/VOMI Verified 11/15/18 13:59 TING Home Medications: Home Medication List Medication Instructions Recorded Confirmed Last Taken Type Albuterol 2.5MG/Ipratrop 0.5MG 3 ml INH Q4-6H PRN PRN #120 neb 05/09/18 02/15/19 Unknown Rx [Duoneb (A & A)] Ondansetron Odt [Zofran Odt] 1 dose PO PRN PRN 11/15/18 02/15/19 12/02/18 History 1 Tramadol [Ultram] 50 mg PO Q4H PRN PRN #30 tab 12/04/18 02/15/19 Unknown Rx Gabapentin 300 mg PO BID 01/21/19 02/15/19 Unknown History Nicotine Patch [Nicoderm Patch] 21 mg TD DAILY 01/21/19 02/15/19 Unknown History Acetaminophen [Tylenol] 650 mg PO Q4H PRN PRN tab 02/03/19 02/15/19 Unknown Rx Alprazolam [Xanax] 1 mg PO BID #30 tab 02/03/19 02/15/19 Unknown Rx Amiodarone [Cordarone] 400 mg PO DAILY #30 tab 02/03/19 02/15/19 Unknown Rx Docusate Sodium [Colace] 100 mg PO DAILY cap 02/03/19 02/15/19 Unknown Rx Folic Acid 1 mg PO BID #60 tab 02/03/19 02/15/19 Unknown Rx Magnesium Hydroxide [Milk of 30 ml PO DAILY PRN PRN udc 02/03/19 02/15/19 Unknown Rx Magnesia] Oxycodone/APAP 5 mg/325 mg 1 ea PO Q6H PRN #20 tab 02/03/19 02/15/19 Unknown Rx [Percocet-5] Phenylep/Shk Lv/Mo/Pet,Wh Oint 1 gm [place] PRN PRN tube 02/03/19 02/15/19 Unknown Rx [Preparation H Oint] Rivaroxaban [Xarelto] 20 mg PO WSUPPER #60 tab 02/03/19 02/15/19 Unknown Rx Ergocalciferol (Vitamin D2) 1 dose ORDERED ORDERED 02/15/19 02/15/19 Unknown History [Vitamin D2] Furosemide 20 mg PO EVERY OTHER DAY PRN PRN 02/15/19 02/15/19 Unknown History Mirtazapine 30 mg PO DAILY 02/15/19 02/15/19 Unknown History Potassium Chloride E.r. [Klor-Con] 20 meq PO DAILY 02/15/19 02/15/19 Unknown History Prochlorperazine [Compazine] 10 mg PO Q6HR 02/15/19 02/15/19 Unknown History - History of Present Illness -Gen Adult Nature of Presenting Problems: Patient is a 63 year old female who presents to the ED via EMS with abdominal pain and generalized weakness. EMS states patient was found in the floor this morning with an unknown downtime. Family states history of pancreatic cancer. Family states patient has generalized weakness. Patient report abdominal pain. Location of Pain/Injury: reports: abdomen Pain Radiation: reports: no radiation Quality of Pain: reports: aching Severity: reports: mild Onset/Duration: reports: unsure Timing: reports: still present Context/Activities at Onset: reports: light activity Associated Symptoms: reports: weakness Similar Symptoms Previously?: Yes Recently seen or treated by another doctor?: Yes Review of Systems - Adult - REVIEW OF SYSTEMS - ADULT ROS:: limited per condition Constitutional: reports: no symptoms reported. denies: chills, fever, fatique Eyes: reports: no symptoms reported Ears, Nose, Mouth & Throat: reports: no symptoms reported Cardiovascular: reports: no symptoms reported Respiratory: reports: no symptoms reported Gastrointestinal: reports: see HPI, abdominal pain. denies: nausea, vomiting Genitourinary: reports: no symptoms reported Musculoskeletal: reports: no symptoms reported Integumentary: reports: no symptoms reported Neurological: reports: no symptoms reported Psychiatric: reports: no symptoms reported Endocrine: reports: no symptoms reported Hematologic/Lymphatic: reports: no symptoms reported Allergic/Immunologic: reports: no symptoms reported All Other Systems: Reviewed and Negative Past History - Adult - PAST MEDICAL HISTORY-ADULT Review of Records: reports: Old Records Reviewed, Nursing Assessment Review, Medications Reviewed, Social history reviewed & non-contributory. Major Childhood Illnesses: reports: denies history Cardiovascular: reports: HTN Respiratory: reports: COPD, sleep apnea Gastrointestinal: reports: cancer Obstetrical/Gynecological: reports: denies history Genitourinary: reports: denies history Musculoskeletal: reports: chronic pain Neurological: reports: denies history Psychiatric: reports: anxiety, depression Endocrine/Immune: reports: denies history Other Conditions: reports: denies history - PRIOR SURGERIES/PROCEDURES Surgical/Procedure History: reports: reviewed, not pertinent, orthopedic (extremity) - IMMUNIZATION STATUS Childhood Immunizations: See Nurse Assessment Flu Vaccine: See Nurse Assessment - FAMILY HISTORY Family History: reviewed, not pertinent - SOCIAL HISTORY Smoking: quit less than 1 year, cigarettes Substance Use: denies Living Situation: family Physical Exam-General - PHYSICAL EXAM-ADULT Initial Vital Signs Reviewed: Yes - CONSTITUTIONAL General Appearance: alert, no apparent distress, cachetic, other (ill in appearance.). negative: lethargic - EYES Eyes: pale conjunctivae. negative: pink conjunctivae, scleral icterus - HEAD, EARS, NOSE, MOUTH & THROAT HENMT: other (dry mucous membranes.). negative: moist mucous membranes, angioedema - RESPIRATORY Respiratory: chest non-tender, rales (expiratory rales bilaterally.), rhonchi (expiratory rhonchi bilaterally.), other (port to right side chest). negative: respiratory distress, wheezing - CARDIOVASCULAR Cardiovascular: normal peripheral pulses, regular rate, rhythm. negative: tachycardia, systolic murmur - GASTROINTESTINAL (ABDOMEN) Abdominal Exam: non tender, distended. negative: guarding, rebound - MUSCULOSKELETAL Extremity: non-tender, normal inspection. negative: erythema, swelling - SKIN Integumentary: pallor. negative: cyanosis, erythema, jaundice, rash - NEUROLOGIC Neurologic: other (unable to assess per patient's condition) - PSYCHIATRIC Psych/Mental Status: other (unable to assess per patient's condition.) Progress - PLAN OF CARE/RESULTS Progress/Plan/Lab Results: Vital Signs - 8 hr 02/15/19 13:14 Temperature 98.1 F Pulse Rate 93 H Respiratory Rate 16 Blood Pressure 110/63 O2 Sat by Pulse Oximetry 98 Orders Category Date Time Status CHEST-1 VIEW [RAD] Stat Exams 02/15/19 13:29 Ordered CBC WITH DIFF [HEME] Stat Lab 02/15/19 13:32 Results COMPREHENSIVE METABOLIC PANEL [CHEM] Stat Lab 02/15/19 13:32 Received LACTATE, PLASMA [CHEM] Stat Lab 02/15/19 13:49 Ordered MAGNESIUM [CHEM] Stat Lab 02/15/19 13:32 Received 0.9% Sodium Chloride Inj [Ns] 1,000 ml Med 02/15/19 13:29 Active IV 500 mls/hr Result Diagrams: 02/18/19 16:26 02/17/19 05:05 - EKG 1 Time of EKG reading by physician:: 13:26 EKG Read and Signed by:: Madi Feng EKG Interpretation (*Must complete 3 of following elements*): Abnormal Rate: 92 Rhythm: normal sinus rhythm [place]: normal [place] Interval: normal Comments: T wave abnormality, consider anterior ischemia - XRAY 1 XRAY Study: Chest Impression: See EMR Report ( EXAM: CHEST-1 VIEW 02/15/2019 HISTORY: scattered rales, weakness, recent PNA TECHNIQUE: AP portable at 1350 COMMENT: There is platelike opacity over both lung bases particularly the left lower lobe. The inspiration is less optimal than on 02/02/2019. Other than the basilar opacities lungs actually appear somewhat clearer. IMPRESSION: Bibasilar atelectasis versus pneumonia. Electronically signed by Foster Meza 02/15/2019 2:07 PM 02/15/19 1407 Interpreting Physician: Foster Meza MD Dictated Date/Ti me: 02/15/19 1406 cc: Madi Feng MD; Antolin Parks MD) - CONSULTS/PCP/HOSPITALIST Notification #1 *Consult/PCP/Hospitalist*: VISHAL Shelton for Hospitalist Time Discussed: 15:15 Reason/Comments: Dr. Feng consulted with Cat about patient. Consult Disposition: Will see in ED, Admit Departure - Departure Date of Disposition Decision: 02/15/19 Time of Disposition Decision: 15:16 DIAGNOSIS: Leukopenia due to antineoplastic chemotherapy, Malignant cachexia Disposition: ADMITTED INPATIENT 09 Certified Medical Emergency: Emergent Condition: Stable - Critical Care Note This patient required my direct & personal management of CC.: No Attestation - Physician/ INEZ Attestation The physician spent face to face time with patient:: Yes Advanced Practice Provider documentation review:: Supervising physician onsite and consulted in the evaluation and care of this patient. The physician did have a face to face encounter with the patient. This chart was documented by the indicated scribe, (Arlin Cates Scribe) and accurately reflects the services I performed and decisions made by me, Madi Young MD, as attested by the provider's signature.
== END 2019-02-18 18:00 | disposition hospice, inpatient (51) | DRG 871 ==
LOC: SUPCPDRO → ED 12:55 → 3S 17:11
PROVIDERS: ATTEND Internal Medicine
CPT/HCPCS: 71010; 71045; 80048; 80053; 81001; 82330; 82805; 82948; 83605; 83735; 84145; 85025; 87040; 93005; 94640; 94660; 94762; 96361; 96365; 99285; A9270; J1446; J1447; J1940; J2060; J2270; J2405; J2543; J3370; J7030; J7050; XXXXX

== ENCOUNTER 2019-02-18 18:01 | Inpatient (IN) ==
[2019-02-18] MEDS ORDERED: TRANSDERM-SCOP TD SCH (18:30)
[2019-02-18] MEDS ORDERED: ROXANOL CONC. LIQUID PO PRN (18:38)
[2019-02-18] MEDS ORDERED: ZOFRAN IV PRN (18:41)
[2019-02-18] MEDS ORDERED: DULCOLAX PR PRN (18:42)
[2019-02-18] MEDS: DUONEB (A & A) INH SCH ×2 (19:05→22:52)
[2019-02-18] MEDS ORDERED: TYLENOL PO PRN (19:15)
[2019-02-18] MEDS ORDERED: ATROPINE 1 % OPHTH SOLN SL PRN (19:15)
[2019-02-18] MEDS ORDERED: TYLENOL PR PRN (19:15)
[2019-02-18] MEDS ORDERED: PHENERGAN PR PRN (19:15)
[2019-02-18] MEDS ORDERED: PHENERGAN PO PRN (19:15)
[2019-02-18] MEDS ORDERED: ROBITUSSIN PO SCH (20:00)
[2019-02-18] MEDS: MORPHINE IV PRN (20:46)
[2019-02-18] MEDS ORDERED: REMERON PO SCH (21:00)
[2019-02-18] MEDS ORDERED: NEURONTIN PO SCH (21:00)
[2019-02-18] MEDS ORDERED: MYCOSTATIN SUSP PO SCH (21:00)
[2019-02-19] MEDS: DUONEB (A & A) INH SCH ×6 (04:00→23:30)
[2019-02-19] MEDS: ATIVAN IV PRN ×2 (13:48→19:01)
[2019-02-19] MEDS: MORPHINE IV PRN ×2 (13:48→19:01)
[2019-02-19] MEDS: NICODERM PATCH TD SCH (13:49)
--- NOTE | 2019-02-19 16:31 | HISTORY AND PHYSICAL ---
CHIEF COMPLAINT: The patient is currently being transferred from inpatient to general inpatient Hospice Service. HISTORY OF PRESENT ILLNESS: Ms. Koroma is a 63-year-old lady with past history of metastatic pancreatic cancer with peritoneal carcinomatosis who was admitted for hypoxemic respiratory failure and bilateral pneumonia. She had received chemotherapy 7 days prior to presentation and was developing severe pancytopenia as well. During hospitalization, she was developing significant respiratory distress and had high oxygen demand and was physically deconditioned, so after involvement of Palliative Care Team and discussion with the patient and her daughter, the patient was made inpatient Hospice. No other acute overnight event. PAST MEDICAL HISTORY: Significant for atrial fibrillation with rapid ventricular rate, pancreatic cancer, anxiety, and COPD on home oxygen with chronic hypoxic respiratory failure. MEDICATIONS: At home, she was taking albuterol nebulization, Xarelto and alprazolam. PHYSICAL EXAMINATION: VITAL SIGNS: Her latest temperature is 97.3, pulse 110, respiratory rate 19, blood pressure of 84/50. She is saturating 95% on 100% nonrebreather mask. GENERAL: She is currently very drowsy and not arousable. On examination, she is not in any acute distress. She is on a nonrebreather mask. LUNGS: Air entry bilaterally decreased. Poor respiratory effort. No wheeze or rhonchi. She had bilateral crackles. HEART: S1, S2 normal. Tachycardic. No murmur or gallop. ABDOMEN: Distended, tympanitic to percussion. Hypoactive bowel sounds. EXTREMITIES: She has bilateral lower extremity edema. DIAGNOSTIC DATA: No labs. ASSESSMENT AND PLAN: Metastatic pancreatic cancer. Her code status is do not resuscitate level 1, and she is on inpatient Hospice Service. At this point, my goal is to address her comfort. I will keep her on albuterol and ipratropium nebulization for shortness of breath. I will keep her on acetaminophen, lorazepam, morphine for pain management. I will keep her on atropine and scopolamine for secretion management and ondansetron and promethazine for nausea and vomiting. DISPOSITION: The patient's prognosis is poor. The patient's daughter was at daughter and was asleep. I could not arouse her. I will later on update her about her clinical course. cc: Shamar Pierre MD
[2019-02-19] MEDS ORDERED: ATIVAN IV PRN (19:05)
[2019-02-20] MEDS: MORPHINE IV PRN ×3 (00:21→16:17)
[2019-02-20] MEDS: DUONEB (A & A) INH SCH ×6 (03:04→23:24)
[2019-02-20] MEDS: NICODERM PATCH TD SCH (08:12)
--- NOTE | 2019-02-20 21:08 | PROGRESS NOTE ---
DATE: 02/20/2019 INTERVAL HISTORY: No acute events. SUBJECTIVE: The patient is lethargic on 100% nonrebreather. The patient's family members at bedside. VITALS: Her temperature has not been recorded today. Pulse 118, respiratory rate 12, blood pressure of 97/50 which was recorded yesterday. She is on nonrebreather mask. She was saturating 91%. PHYSICAL EXAMINATION: Appears lethargic and obtunded. Decreased air entry bilateral lung keyes. She is having tachycardia. Abdomen is distended. She does not respond to verbal or painful stimuli. Bilateral lower extremity edema. She has muddy looking urine coming out in urine catheter. LABS: No labs or imaging data. ASSESSMENT AND PLAN: 1. Metastatic pancreatic cancer. 2. Bilateral lower lobe pneumonia. 3. Acute hypoxic respiratory failure. PLAN: The patient is do not resuscitate level 1 and is on inpatient hospice service. I will continue to address pain and anxiety and comfort through albuterol ipratropium nebulization, intravenous lorazepam, nicotine patch, scopolamine patch and as needed antiemetics. Plan of care discussed with multiple family members present at the bedside. All of the questions answered. cc: Shamar Pierre MD
[2019-02-21] MEDS: DUONEB (A & A) INH SCH ×5 (03:25→20:17)
[2019-02-21] MEDS: MORPHINE IV PRN ×2 (10:09→14:17)
--- NOTE | 2019-02-21 12:32 | PROGRESS NOTE ---
DATE: 02/21/2019 SUBJECTIVE: This morning Ms. Koroma continues to be unresponsive. Family members were at the bedside. 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 OBJECTIVE: Vital Signs: Current vitals, blood pressure is 85/43, pulse 113, respirations 25, and temperature is 98.8 degrees. Patient is saturating about 84%. General: Ms. Koroma is a 63-year- old female. She is in bed. She is on oxygen non-rebreather. HEENT: Mucosa is pink and moist. Chest: Diffuse crackles in posterior lung keyes. Cardiovascular: Tachycardic. No murmurs. Abdomen: Soft. There are Sister Clive's nodes palpated periumbilically. Bowel sounds present, but extremely hypoactive. Extremities: 1+ pedal edema. PROFESSOR OF ENVIRONMENTAL SCIENCE: Patient is unresponsive. Pupils are slightly dilated and sluggishly responsive. ASSESSMENT: 1. Metastatic pancreatic cancer with peritoneal carcinomatosis. 2. Bilateral lower lobe pneumonia with acute hypoxemic respiratory failure. 3. History of atrial fibrillation. 4. Nicotine dependence. 5. Poor prognosis and DNR level 1 with SENIOR MANAGER [employer] status. 6. To continue with SENIOR MANAGER [employer] measures. 7. I have discussed the findings and plan with the family who were at the bedside. All questions and concerns are answered. cc: Logan León MD
[2019-02-21] MEDS: NICODERM PATCH TD SCH (14:12)
[2019-02-21 15:33] VITALS: BP 82/35
[2019-02-21] MEDS ORDERED: ATIVAN IV PRN (15:46)
[2019-02-21] MEDS ORDERED: MORPHINE IV PRN ×2 (15:46→16:00)
== END 2019-02-21 16:25 | disposition expired | DRG 435 ==
LOC: SUATTDRO 18:01 → 3S 18:01
PROVIDERS: ATTEND Internal Medicine
CPT/HCPCS: 94640; 94761; A9270; J2060; J2270